=== PATIENT | female | born 1970 | race Caucasian/White ===

== ENCOUNTER 2023-10-22 21:04 | Outpatient (REF) | payer BC, SELFPAY ==
[2023-10-26 10:13] LABS: Age Gdln ACOG Testing Note (.); HPV Aptima Negative (Negative); IGP, Aptima HPV, rfx 16/18,45 Note (.)
== END 2023-10-22 21:05 | disposition home or self-care (01) ==
LOC: LAB 21:04
PROVIDERS: Visit Provider Physician Assistant
DX: Z01.419 Encounter for gynecological examination (general) (routine) without abnormal findings (principal)
CPT/HCPCS: 87624; G0145

== ENCOUNTER 2023-11-02 12:51 | Outpatient (OUT) | payer BC, SELFPAY ==
--- OUTSIDE RECORDS SUMMARY | 2023-11-02 12:54 | XMS_ITS | CCD ---
Author Name Unknown Address [address] [place] [address] Organization [facility] Care Team Providers Care Bar And Filler Assembler Name Role Phone Alice Solis Primary Care Provider UnavailRuddy Wilson Attending Provider Unavailable CALDERON, DR MATA Admitting Unavailable KARASIK, DR MATA Attending Unavailable SOLIS, DR JENKINS Primary Care Unavailable KARASIK, DR MATA Consulting Unavailable CALDERON, DR MATA Admitting Unavailable CALDERON, DR MATA Attending Unavailable SELENE MELENDEZ Primary Care Unavailable KARTRINAK, DR MATA Consulting Unavailable VENDOR, DR GALE Cm Consulting Unavailable KeJuanjo glaser Attending Unavailable Juanjo Mtz Admitting Unavailable Alice Solis Primary Care Unavailable Unavailable Unavailable Unavailable Allergies Allergy Classification Reported Allergen(s) Allergy Type Date of Onset Reaction(s) Facility (1 source) Iodine (And Iodine Containting Drugs) Drug allergy (disorder) 11-09-2014 [facility]ository Medications Current Medications Medication Drug Class(es) Dates Sig (Normalized) Sig (Original) aspirin 81 mg delayed release oral tablet (1 source) Platelet Aggregation Inhibitor, Nonsteroidal Anti-inflammatory Drug Start: 09-22-2019 take 81 mg by mouth once daily Aspirin Active 81 MG Oral Daily September 22, 2019 3:02pm cetirizine hydrochloride 10 mg oral tablet (1 source) Histamine-1 Receptor Antagonist Start: 09-22-2019 take 10 mg by mouth once daily Cetirizine Active 10 MG Oral Daily September 22, 2019 3:07pm ergocalciferol 94601 unt oral capsule (1 source) Provitamin D2 Compound Start: 09-22-2019 take 85622 [IU] by mouth every week Ergocalciferol (Vitamin D2) Active 65844 UNIT Oral every week September 22, 2019 3:02pm esomeprazole 20 mg delayed release oral capsule (1 source) Proton Pump Inhibitor Start: 09-22-2019 take 40 mg by mouth once daily Esomeprazole Magnesium Active 40 MG Oral Daily September 22, 2019 3:02pm fenofibrate 145 mg oral tablet (1 source) Peroxisome Proliferator Receptor alpha Agonist Start: 09-22-2019 take 145 mg by mouth once daily in the morning Fenofibrate Nanocrystallized Active 145 MG Oral Every morning September 22, 2019 3:02pm fluticasone propionate 0.05 mg/actuat metered dose nasal spray (1 source) Corticosteroid Start: 09-22-2019 Fluticasone Propionate Active 2 SPRAY Intranasal Daily September 22, 2019 3:17pm Multivitamin preparation (1 source) Start: 09-22-2019 take 1 tablet by mouth once daily in the morning Multivitamin Active 1 TAB Oral Every morning September 22, 2019 3:02pm Tiotropium Guy (1 source) Anticholinergic Start: 09-22-2019 take 1 puff(s) by inhalation once daily in the morning Tiotropium Guy Active 2 PUFF Inhalation Every morning September 22, 2019 3:02pm Problems Problem Classification Problem Date Documented Date Episodic/Chronic Immunizations and screening for infectious disease (1 source) Encounter for screening for human papillomavirus (HPV); Translations: [ENC SCREENING HUMAN PAPILLOMAVIRUS] Onset: 08-19-2022 Episodic Other screening for suspected conditions (not mental disorders or infectious disease) (8 sources) Encounter for screening mammogram for malignant neoplasm of breast; Translations: [Encounter for screening for malignant neoplasm of cervix] Onset: 08-18-2022 Episodic Residual codes; unclassified (1 source) Asymptomatic menopausal state; Translations: [ASYMPTOMATIC MENOPAUSAL STATE] Onset: 09-11-2022 Episodic Residual codes; unclassified (1 source) Family history of malignant neoplasm of digestive organs; Translations: [FAM HX MALIG NEOPLASM DIGESTIV ORGN] Onset: 09-11-2022 Episodic Residual codes; unclassified (1 source) Family history of malignant neoplasm of other organs or systems; Translations: [FAM HX MALIG NEOPLASM OTH ORGN/SYS] Onset: 09-11-2022 Episodic Results Test Name Value Interpretation Reference Range Facility COVID-19 / Flu A/B / RSV PCR on 04-19-2023 SARS-CoV-2 (COVID-19) RNA ELIZA+probe Ql (Unsp spec) COVID-19 Cepheid Result Negative for SARS-CoV-2 RNA by RT-PCR Flu A Cepheid Result Negative for Flu A RNA by RT-PCR Flu B Cepheid Result Negative for Flu B RNA by RT-PCR RSV Cepheid Result Negative for RSV RNA by RT-PCR COVID19 Blank Space Reference: Negative COVID19 Blank Space Cepheid Disclaimer The Cepheid Xpert Xpress CoV-2/Flu/RSV Plus has Cepheid Disclaimer not been FDA cleared or approved; this test has Cepheid Disclaimer been authorized by FDA under an EUA for use by Cepheid Disclaimer authorized laboratories; this test has been Cepheid Disclaimer authorized only for the simultaneous qualitative Cepheid Disclaimer detection and differentiation of nucleic acids from Cepheid Disclaimer SARS-CoV-2, influenza A, influenza B, and Cepheid Disclaimer respiratory syncytial virus (RSV), and not for any Cepheid Disclaimer other viruses or pathogens; and this test is only Cepheid Disclaimer authorized for the duration of the declaration that Cepheid Disclaimer circumstances exist justifying the authorization of Cepheid Disclaimer emergency use of in vitro diagnostic tests for Cepheid Disclaimer detection and/or diagnosis of COVID-19 under Cepheid Disclaimer Section 564(b)(1) of the Act, 21 U.S.C. 360bbb- Cepheid Disclaimer 3(b)(1), unless the authorization is terminated or Cepheid Disclaimer revoked sooner. PERFORMED BY: [facility] [place] [address] PATHOLOGIST PUBLIC HOUSING INTERVIEWER SUSANNA SIMS M.D. [facility] Comment on above: Performed By: #### C OVID19 FLU RSV, CEPHEID NEG, QS #### [facility] [address] [id number] [facility] Cepheid COVID PCR Negativeon 04-19-2023 SARS-CoV-2 (COVID-19) RNA ELIZA+probe Ql (Unsp spec) Negative Normal Negative [facility] Comment on above: Result Comment: This is a duplicate Cepheid Xpert Xpress CoV-2/Flu/RSV Plus RNA by RT-PCR result to be used for statistical tracking purpose only. PERFORMED BY: [place] [id number] PATHOLOGIST PUBLIC HOUSING INTERVIEWER SUSANNA SIMS M.D. Performed By: #### C OVID19 FLU RSV, CEPHEID NEG, QS #### [address] ECG 12 lead ECGon 04-19-2023 ECG 12 lead ECG [facility] [place] [address] [place] [address] Electrocardiograph Report Signed Patient: Margret Encinas MR#: [id number] : 1970 Acct:[id number] Age/Sex: 52 / F ADM Date: 04/19/23 Loc: ER Room: Type: [facility] ER Attending Dr: Ordering Provider: Juanjo Mtz DO Date of Service: 04/19/23 ECG/ECG 12 lead ECG: Chest Pain Copies to: Test Reason : Blood Pressure : 145/084 mmHG Vent. Rate : 081 BPM Atrial Rate : 081 BPM P-R Int : 176 ms QRS Dur : 086 ms QT Int : 406 ms P-R-T Axes : 043 -29 012 degrees QTc Int : 471 ms Normal sinus rhythm Confirmed by Juanjo MTZ DO ([id number]) on 04/19/2023 9:18:46 AM Referred By: Electronically Signed By:Juanjo MTZ DO Transcribed By: MUS Signed By Juanjo Mtz DO 0 04/19/23 0918 Normal [facility] [place] 04-19-2023 Monotest Negative Normal Negative [facility] Comment on above: Result Comment: PERF ORMED BY: [place] [id number] PATHOLOGIST PUBLIC HOUSING INTERVIEWER SUSANNA SIMS M.D. Performed By: #### M ONOTEST #### [facility] [address] [place], [place] [id number] [facility] Quick Strepon 04-19-2023 Quick Strep Streptococcus pyogen es Ag [Presence] in Throat by Rapid immunoassay Negative for Group A Strep Antigen Note 1 NOTE 2 Results are those of a screening test. NOTE 3 If clinically indicated please order a culture. NOTE 4 NOTE 5 Reference range = Negative PERFORMED BY: [place] [id number] PATHOLOGIST PUBLIC HOUSING INTERVIEWER SUSANNA SIMS M.D. [facility] Comment on above: Performed By: #### C OVID19 FLU RSV, CEPHEID NEG, QS #### [facility] [address] [place], [place] [id number] [facility] MG MAMM SCREEN 3D ANA CADon 09-07-2022 MG MAMM SCREEN 3D ANA CAD Patient: MARGRET ENCINAS Exam Date: 09/07/2022 : 1970 Gender:F Ordering : DR ADOLFO MANCERA . Admission #: [id number] Family : Order #: [id number] CLICK HERE TO VIEW EXAM RADIOLOGY REPORT PROCEDURE: MAMMOGRAM SCREENING 3D BILATERAL CAD COMPARISON: MG MAMM SCREEN ANA W CAD, 09/01/2020. MG MAMM SCREEN 3D ANA CAD, 09/02/2021. INDICATIONS: Screening mammography Calculator Name NCI Breast Cancer Risk Assessment Tool 5 Year Breast Cancer Risk 2.10% Lifetime Breast Cancer Risk 17.40% Personal Breast Cancer No Personal Ovarian Cancer No Treatments None Family Cancers Aunt-maternal with pancreatic cancer at age 62; Grandmother-maternal with pancreatic cancer at age 85; Uncle-maternal with pancreatic/liver cancer at age 65. LOCATION: [facility] BREAST COMPOSITION: Scattered areas fibroglandular density. FINDINGS: DIAGNOSTIC CATEGORY 2--BENIGN FINDING. NO CHANGE FROM COMPARISON. Scattered benign-appearing nodules are present. Scattered benign-appearing calcifications are present. Scattered benign-appearing lymph nodes are present. RIGHT BREAST: No significant suspicious finding. LEFT BREAST: No significant suspicious finding. Stable micro clip marker upper outer quadrant RECOMMENDATIONS: ROUTINE MAMMOGRAM AND CLINICAL EVALUATION IN 12 MONTHS. PLEASE NOTE: A NORMAL MAMMOGRAM DOES NOT EXCLUDE THE POSSIBILITY OF BREAST CANCER. A CLINICALLY SUSPICIOUS PALPABLE LUMP SHOULD BE BIOPSIED. Dictated by: Gale Brooks MD on 09/08/2022 at 07:10 Approved by: Gale Brooks MD on 09/08/2022 at 07:12 Normal [facility] PAP ACOG PANEL 2: 30 to 65on 08-24-2022 . . Normal [facility] Comment on above: Result Comment: Perf ormed at: WB Performed By: #### 4 [id number] #### [facility] [address] [place] [address] Dr. Acosta Fuller Age Gdln ACOG Testing 30-65 Normal [facility] Comment on above: Performed By: #### 4 [id number] #### [facility] [address] [place] [address] Dr. Acosta Fuller DIAGNOSIS: Comment Normal [facility] Comment on above: Result Comment: NEGA TIVE FOR INTRAEPITHELIAL LESION OR MALIGNANCY. Performed at: WB Performed By: #### 4 [id number] #### [facility] [address] [place] [address] Dr. Acosta Fuller HPV Aptima Negative Normal Negative [facility] Comment on above: Result Comment: This nucleic acid amplification test detects fourteen high-risk HPV types (16,18,31,33,35,39,45,51,52,56,58,59,66,68) without differentiation. Performed at: =G Performed By: #### 4 [id number] #### [facility] [address] [place] [address] Dr. Acosta Fuller Methodology: CTIM Normal [facility] Comment on above: Result Comment: The Thin Prep(R) Shellfish Bed Worker was unable to read this specimen. Therefore a manual review was performed. Performed at: WB Performed By: #### 4 [id number] #### [facility] [address] [address] [address] Acosta Fuller Note: Comment Normal [facility] Comment on above: Result Comment: The Pap smear is a screening test designed to aid in the detection of premalignant and malignant conditions of the uterine cervix. It is not a diagnostic procedure and should not be used as the sole means of detecting cervical cancer. Both false-positive and false-negative reports do occur. . Performed at: WB Performed By: #### 4 [id number] #### [facility] [address] [address] [address] Acosta Fuller Performed by: Comment Normal [facility] Comment on above: Result Comment: Akin Blackwell, Door Clamper (ASCP) Performed at: WB Performed By: #### 4 [id number] #### [facility] [address] [place] [address] Dr. Acosta Fuller Specimen adequacy: Comment Normal [facility] Comment on above: Result Comment: Sati sfactory for evaluation. No endocervical component is identified. Performed at: WB Performed By: #### 4 [id number] #### [facility] [address] [address] [address] Acosta Fuller MRI Upper Arm/Humerus w/o + w/ Righton 07-05-2022 MRI Upper Arm/Humerus w/o + w/ Right HISTORY: Mass of the right upper extremity. Lump for 6 months. TECHNIQUE: Routine MRI of the right upper arm/humerus, with and without contrast. Given 15 mL of intravenous ProHance. COMPARISON: Ultrasound 06/09/2022. RESULT: No suspicious mass or lesion. Normal-appearing subcutaneous fat at the area of marker at the site of lump. No suspicious enhancement after contrast. In correlation with the recent ultrasound, the lump either represents small benign unencapsulated lipoma or area of focal fat deposition. No evidence for fracture or suspicious marrow replacing process. Large [id number] imaging of the elbow grossly unremarkable. Muscle bulk and signal intensity within normal limits. Visualized tendons intact. No other significant abnormality. IMPRESSION: No suspicious mass or lesion at the area of concern. In correlation with the recent ultrasound, the lump either represents small benign unencapsulated lipoma or area of focal fat deposition. Report reported and signed by Castro Ellison on 07/06/2022 0849 Normal [facility] Certification And Selection Specialist US Upper Extremity, Non-Vasc ular, Righton 06-09-2022 US Upper Extremity, Non-Vascular, Right HISTORY: Soft tissue lump for 6 months COMPARISON: None available TECHNIQUE: Ultrasound evaluation was performed of the subcutaneous soft tissues of the right upper extremity in the area of patient concern. FINDINGS: Within the subcutaneous soft tissues there is an ovoid isoechoic to slightly hyperechoic lesion measuring approximately 0.9 x 1 x 0.4 cm and demonstrating no definitive internal blood flow or abnormal adjacent blood flow. IMPRESSION: Nonspecific 1 cm lesion within the subcutaneous soft tissues that may represent a lipoma. MRI of the upper extremity with contrast is recommended to further evaluate. Report reported and signed by Ervin Lagunas on 06/09/2022 1330 Normal [facility] - Toxicology Resultson 0 04-14-2022 Lab - Toxicology Results [id number] 0OTGTIFF Normal [facility] Drug Test Panel 10on 022 Drug Screen Complete Collected Normal [facility] Comment on above: Performed By: #### 2 [id number] #### [facility] (DEFAULT) [address] [place] [address] Coding Summary.on 10-04-2021 Coding Summary. [id number] Gh 0bWw+PGhlYWQ+WW2YWKIqB 40whTWdnC7PG9tVPR1JOMA CEDUEVO4GYE3ujPE6ELsmE 2VybiAv UiqkxNGoMF49VOi7ECE4nE ydRHjslJ6dxHRgG0t1GxTp LS79qF07AFmoVUPtZxC7Dy ZpbjsgbWFy P9ubOrXvwTAsQxe+PHRhYm xlIHdpZHRoPScxMDAlJyBz zAlnBS2hEn1gZUUqUHYzxM xhcHNlOiBj p5wqPWKpNRpfPJ4fxTofL5 DhdEV3VSMkd9b6Db58jJM+ GENqFXK0wDrnZHcrq208Ah Usw2fpTRY8 tMYtWDvaLKJ7J73qo8G1AS WtEFQjEGK2tZB7yK5vkRlq irgjP0XwyHSoVyJ7FXC9aK ZhsP8ooVjr qmafmQ7wKxi+O70MFP6BGQ MOLX1MNvi9J7CoJsckbEI+ UI83MZPrIX96wCZfqWOoi0 ztpRf3FkSj GWLbZKV5xEtoCDxbn7YaAW BcT71wyZCot0G9WTJdeCli lFWcEsVprTG6hJ6wAKmofp fyk2mkcyab Jfowa3iihn29cY67P25kDC dkFZNjXDU6LWRkMRUupInt bl6xvL1gWf0+HVsxn7fzc0 kkcCi6SyPh JSGrpmTxvFtuOIN7q5FrRn 47R4NdnYztd4ZxBuz9bz87 gZZiq9G0pYK5JMqmJLPprY 0nKPjdVcU6 NGHsEfIrwO05wOZoILwtOb 1giBiryYtlVD3uMDLvbvun SAEjyA7yLXOrpVPbkZwdKY 4wNTBpbjtm p193BaThRCM8JWQgbJBwQ5 GzkU4pFsLdMZOkANVvK1Hf nFXvVKjoQ454OZjjYvE6LA KdfsNsC9Wg CFHbdHloAwE3x8N0Jh9Dw2 RsunktPVY3VFqkCYHdRxQk LtPmZtV6M0FaTyq6XZCjeR msNW5dB1Sc LIEjfhjllgdsiEQ1IUBpZQ IzoG47jLFkOWwrHx8wk6I0 h376ZIXuZCRntG29Rj2dyE ogMTBwdCBU mF9arqedl3cacuslOjZoRF HiWJx6ZEi0TBSsfOqeAuUs KTW5PpG7HLQ4cSXzpF1uoI jucqmtrX0m Oyc+M58glD2kGLX6IOC9kw bsUNRzsgDzOU70LU88Z9Db PjwvdGFibGU+PGRpdiBzdH vqXB2tZiId h6exx4MzLSukD6RkMMHqQJ wuMwy0RAAoZRX9kDS8aK4a MSDtQNqmy9O7jWZ4K1Canj Aijk1wk4hj KCLqRTeqY93ewJDmu2H2AP SuhYB9XUMdqRdtOwYqkE06 Oyc+OOTlkRoks6YxJqxiv9 yin3uenMf7 QiUdQUVylpEgtTlcJVP2b5 MbJr29P09lXXtsOXXzFDOz LQPyQAEtfBncgh4jcN5zVz 8+PGNvbCB3 kXY2qX7vXVNjYcA0VFdbW1 58GtGimQRuRftmq4uqc6pz kEx3QaJrMVZynyEckPbvFV A4p4EqEx87 N69mKIwkBGRfXXTeHWFpUJ QvvKkhtb6bqU0dRi1+PC9j h7chlm65xH51mBV+PHRkIH Q0iZiyTCou YPDpfO3yEGkzJtH3ASDcFb IsgR96cFFxDZuhEu5ohFuk vCdzTK6aMQHiveqcv280Lv Elf1qiMWDh tWPeFOhwIWH2E38kl4B2UN DvMFNoCZO8uHC0gR2ezWsq bjogbGVmdDsgdmVydGljYW qxALwpC816 IHRvcDsnPlBhdGllbnQgTm DlZLs8L0TjUub1OBKcvFzd SJ1tdMPnYAlfOm5mvLilwN pjQT7gLSXq xwfhj070HxKyj7sySMFfhS CxEDpvSHD5P95ak1W6MCJd DEWiXXU2vFE9bA0xvLgmje ogbGVmdDsg qoTqqTvgUNqkXLiaD002EA RvcDsnPkJpcnRoIERhdGU6 OY97KR18vEOaw7S7eUP9E1 BhZGRpbmct cpuxzYC6LZDfGJZrwV71Wk 9sgPxsMt2yMLKpMAK9QUIy sZCfP3AtlQ8iTvMnMUJoAG BkI6JmsICr NBjnD413BOsrQwZ2RLDkfi OlX5YpSFNebBppYbA0f0W6 Ej0CW9Q5ST44GY56eUYcu4 D5bFC8Q5Bm QYOdhxercngpuKJ0TAAaLU TqpF36Sq9etJooMq0mCHFa MCP9GNOciIXpA7OueL4eSy AjMDAwMDAw A0CbiGZkMTgpN447YEwpJl G1PQPgjtGqK1WsDJHzaQmu VcG3e7V8Ym5IPDp0KJ14BF 55dXUvb4P8 qGZ9R0NmKMBlwerjxnndoN T1TONgJRQhoR53Ik0lrVif Ky2mYCJpTCV6KTDtfGVaZ3 MgbE3lKuWo BJGnFWDkG1BayNTzGAwfB1 09ZInyLzM9GNUimiKaD9Xy NHXasFklHrY6l4Q4Ci7LCX MqMI02JVX5 jWL7BF69QH33L2TsQvpolO FibGU+PHRhYmxlIHdpZHRo JBaiGGZqWzAlvOpdOW0lMn 9yZGVyLWNv rShggBMqKnUhu6fdEPWkKF xzAR3zfPklR4UsfOM7GACz g3i9Uh10W13oU9WgjAG+PG OwqBJ7mID3 eK2iNwThAvA7SJngR664Ja FvtPNuRmhlr6izg1xeaNz4 KcW2ZBFgvaJbuYwvLPN5x5 BdZk43V30s IHdpZHRoPSIxNSUiIHZhbG iehv0fyI0yTs0+PGNvbCB3 sTD3gT9wGzGvImG5INfeF0 49InRvcCIv Lpfpr7fgj3yteCb8TyCeTX IntzJbqGjkQLM0s9UcWq48 X0JppSzaz0KwCiw5jx21hF Soq2Q6vXN8 O5RbMUDaqaxpvVYnmSabWP 5dPSDbhunhKCHerO6lEHMz L2i6ZvIhGtM7WBakD1Bguw F2NRSmmEGl PWlsRRB5B52mv3I4NBSkQO WnYHM2cIR8kW4yaQdzixkc bGVmdDsgdmVydGljYWwtYW ldI697ICPe xAnrEHZkaF1dIBWupIIvtE shJY9yMNCtbprlLoGBQ6hE UOhhQFJHHQUDIVhKKF14DD 27xMOlm4S6 zOJ5G9ZeQJUxlhhnnnkomL X1YYKlUYNzkL83fHOxRByt Vx7ga8P5q809GAAoOFAqpH 22Sa1fwXma TFKlfWYMcI4oaltzq8mtcn dcWlJwXOWqXOy5MYi8IVGa yLbdFeEvKWZ9JtB9XMU5gW SfcH0qgLdd djduhQ7mZpk+MDgvMjEvMT s3UOmyeAN+FUOcBCN1lJkn LVvuEMRuwK9aETKhS2p8Pg JhDzV0KKyy V1ZjFEIksvwiXi95fA6kUj CgTpF5UZeaS3IejwT4YAGx sQKwCJvlCFB8E88sn7W2FU MwMDAwMDA7 gOI6eU6yrKhbyyykjUAzvW pkaxQsrUpgGVkeOBxdK609 IHRvcDsnPjUwIFllYXJzPC 66ES06zOUs j4I6zZW6I3VuIOWbrlrgqy bnsOR9UFVqEIPmxC33iVCt MTjgCz4yn8W9e761FUXcYI DupK13In7t tTiuZCJqiKDCqE8rxlify1 xngawkElOeVPXzDLq8DUq4 CZTeoQnlKgKjUPV5EfX2KJ L9rMFoaS7l bUcyoinkuA8rKxu+RmVtYW zrTW43PN04lGSra5Y4pYR2 N0YwBUUzmvfuclvimUS2EJ QsVWCmiT44 pTJaOMbeVi4hi1Q1b912AO LzSPHqcP62Cp1bmLhnGMEz cLJEcA7hnajlz8fqolapRw AwMDAwMDt0 OQv7LCGhoSztAtLwWSK5Ey Z1QPN1yYBitF2fcOgkokut mZ3oUgc+Z6Q6jXI3oOFjxI wvdGQ+PC90 tl61Y4AbLtscHua0TYZkZL G5wWF4yI8hDLEyTWxao1D7 jEM0Q5CuwtUuhe1au7reGH JqUVvtP49v fHJkp8Y2XSYxeDF5XBFtsY xwObJhlU24Lko+PGNvbGdy c6IsNejpa9wye5vtlFf8Ui MwJSIgdmFs aEisZTP8f4IyDw99N99uFX dpZHRoPSIzMCUiIHZhbGln hv7paE7lHy4+AFExhIS2bN L2jT4eEjVe AcB4HRkiB572EqSasNVgFn kgg3rvv7cjlRv4NcRtAYZa ybDcqPchIVG7u7FyZn25L1 NetPjno1Qa Pvz8hy26pHTxm5H0tDB6L0 HhHMYymdathKCkyVwuLZ6m WIUfhsdbMDEqbS3rQTPqE6 g4CqBtNbI8 ABlxR7YpvtE5GOYknPJjUB MfnGLKpM4vngszt4mdrmzl JyEhNKZiJZq3CCk4IHSbbL duOiBsZWZ0 ZwV0ZFD0gJZtpL1kcSjhfv pxlK6lFxi+EGk9r5nimSOt CL6qjEB7FX24LZ83iGYir4 S7hPJ0M1Ii QTGyfvjanqlcdQQ5RGYoQQ SbaL88Se8ilBjqAa1cMMMl BRL6NZPnfKPsE0RnlS7mIz AjMDAwMDAw E7JeiGBfGJapZ629FYoaDn S3ECTgmyDtG5YdWDFfiEau HhG4o3L3Xo4ROG52GW72AN 21fHMlf7J6 dVU9Z8UfEGYwculehlxfcB N7YKHpZWIyjA16Jy1orLzw Tz8aCSDjBJA8VUOxfGIiR1 ZpqZ6dWuQl KAStIEWoY9JopCGnISfrF9 55AYcuUkV0PAWkezPfI6Vv FFUsiUagPqS6x0J3Ld1TEy 61AC91BY87 hDNrg1S7hCD9Z7VkPSGlgm aunyuayVU2AGUbPESpfX04 Aj7uuBjuUa9iUIDfHIV0RS TljYAxM4Ro dM2iWiGhLNFqNDIpH9EzzY JpNGctZ381GJgmGjO4MYYs anZyX4SgADPwqIfwOfA9l6 T9Gu0HSMwq xbr6K2RrEmmuvYU+PC90YW GlXG40hMVczWSuu9iaeAb7 UqSiPHIkWXY2xWtbHHaxp6 KgSETkW82x bGFw (more content not included)... Normal [facility] BMPon 09-08-2021 Anion gap [Moles/Vol] 12 mmol/L Normal -16 [facility] Comment on above: Performed By: #### 2 [id number], [id number], [id number] ####[facility] [address] [place] [address] Calcium [Mass/Vol] 9.0 mg/dL Normal 8.9-11.1 [facility] Comment on above: Performed By: #### 2 [id number], [id number], [id number] ####[facility] [address] [place] [address] Chloride [Moles/Vol] 101 mmol/L Normal 101-111 [facility] Comment on above: Performed By: #### 2 [id number], [id number], [id number] ####[facility] [address] [place] [address] CO2 [Moles/Vol] 23 mmol/L Normal 21-31 [facility] Comment on above: Performed By: #### 2 [id number], [id number], [id number] ####[facility] [address] [place] [address] Creatinine [Mass/Vol] 0.7 mg/dL Normal 0.5-1.3 [facility] Comment on above: Performed By: #### 2 [id number], [id number], [id number] ####[facility] [address] [place] [address] Glucose [Mass/Vol] 109 mg/dL Normal 55-199 [facility] Comment on above: Result Comment: If t his glucose result represents a fasting glucose, interpretation should refer to the following reference range: 55-99 mg/dL Performed By: #### 2 [id number], [id number], [id number] ####[facility] [address] [place] [address] Potassium [Moles/Vol] 4.3 mmol/L Normal 3.5-5.3 [facility] Comment on above: Performed By: #### 2 [id number], [id number], [id number] ####[facility] [address] [place] [address] Sodium [Moles/Vol] 132 mmol/L Low 135-145 [facility] Comment on above: Performed By: #### 2 [id number], [id number], [id number] ####[facility] [address] [place] [address] Urea nitrogen [Mass/Vol] 13 mg/dL Normal 5-21 [facility] Comment on above: Performed By: #### 2 [id number], [id number], [id number] ####[facility] [address] [place] [address] Urea nitrogen/Creatinine [Mass ratio] 19 No Units Normal 10-20 [facility] Comment on above: Performed By: #### 2 [id number], [id number], [id number] ####[facility] [address] [place] [address] CBC w/Indiceson 09-08-2021 Erythrocyte distribution width (RBC) [Ratio] 12.7 % Normal 10.9-14.2 [facility] Comment on above: Performed By: #### 2 [id number], [id number], [id number] #### [facility] [address] [place] [address] Hematocrit (Bld) [Volume fraction] 40.3 % Normal 34.0-46.0 [facility] Comment on above: Performed By: #### 2 [id number], [id number], [id number] #### [facility] [address] [place] [address] Hemoglobin (Bld) [Mass/Vol] 13.9 g/dL Normal 12.0-16.0 [facility] Comment on above: Performed By: #### 2 [id number], [id number], [id number] #### [facility] [address] [place] [address] MCH (RBC) [Entitic mass] 32.3 pg Normal 27.0-34.0 [facility] Comment on above: Performed By: #### 2 [id number], [id number], [id number] #### [facility] [address] [place] [address] MCHC (RBC) [Mass/Vol] 34.5 g/dL Normal 31.4-36.0 [facility] Comment on above: Performed By: #### 2 [id number], [id number], [id number] #### [facility] [address] [place] [address] MCV (RBC) [Entitic vol] 93.4 fL Normal 80.0-100.0 [facility] Comment on above: Performed By: #### 2 798389, [id number], [id number] #### [facility] [address] [place] [address] Platelet mean volume (Bld) [Entitic vol] 7.6 fL Normal 6.4-10.8 [facility] Comment on above: Performed By: #### 2 033918, [id number], [id number] #### [facility] [address] [place] [address] Platelets (Bld) [#/Vol] 401.0 E9/L Normal 150.0-500.0 [facility] Comment on above: Performed By: #### 2 810396, [id number], [id number] #### [facility] [address] [place] [address] RBC (Bld) [#/Vol] 4.3 E12/L Normal 4.3-5.9 [facility] Comment on above: Performed By: #### 2 049103, [id number], [id number] #### [facility] [facility] [address] [place] [address] WBC corrected for nucl RBC Auto (Bld) [#/Vol] 7.4 E9/L Normal 4.0-11.0 [facility] Comment on above: Performed By: #### 2 [id number], [id number] #### [facility] [address] [place] [address] Consent for Treatmenton Consent for Treatment [id number]#1.0 0CD:127 Normal [facility] Physician Orderon 09-08-2021 Physician Order [id number]#1. 00CD:127 Normal [facility] eGFRon 09-08-2021 GFR/1.73 sq M.predicted among blacks MDRD (S/P/Bld) [Vol rate/Area] mL/min/{1.73_m2} Normal >=59 [facility] Comment on above: Order Comment: Order added by Discern Expert. Result Comment: eGFR is race adjusted. AA=. Performed By: #### 2 [id number], [id number] ####[facility] [address] [place] [address] GFR/1.73 sq M.predicted among non-blacks MDRD (S/P/Bld) [Vol rate/Area] mL/min/{1.73_m2} Normal >=59 [facility] Comment on above: Order Comment: Order added by Discern Expert. Result Comment: Repairer S[employer] Door mahad kidney disease could be indicated at eGFR's of less than 60 mL/min/1.73m2. Kidney failure is indicated at less than 15 mL/min/1.73m2. Performed By: #### 2 [id number], [id number], [id number] ####[facility] [address] [place] [address] Stress EKG Tracingson 2020 Stress EKG Tracings [id number]#1. 00CD:127 Normal [facility] NM Myocardial Spect Rest/Str ess 1 Dayon 07-16-2021 NM Myocardial Spect Rest/Stress 1 Day Exam Date/Time: 07/12/2021 14:58 EDT Reason for Exam: ABNORMAL EKG Report PROCEDURE: Lexiscan nuclear stress test. INDICATIONS: Abnormal EKG. PROCEDURE DETAILS: The patient was stressed according to Lexiscan protocol without event. The patient received 10.5 mCi of Cardiolite for rest images and 29.2 mCi of Cardiolite for stress images. Baseline EKG was sinus rhythm with poor R wave progression and left axis deviation. During Lexiscan infusion, there were no significant EKG changes. Review of raw images demonstrated some mild motion and attenuation due to large body habitus. FINDINGS: Uptake of the tracer was homogeneous with no identifiable ischemia or infarction. TID ratio was 0.94 and EF was 68% with end-diastolic volume of 90 mL. CONCLUSIONS: Negative Lexiscan nuclear stress test. Overall low risk stress. FINAL REPORT Signed (Electronic Signature): 07/16/2021 10:12 am Signed by: Morgan HUMPHREY, Dony Carmona Transcribed by: susan Technologist: HELENA Technical Comments Rest Dose (mCi Tc99m Cardiolite): 10.5 Stress Dose (mCi Tc99M Cardiolite): 29.2 Normal [facility] Coding Summary.on 07-15-2021 Coding Summary. CD:[id number] Gh 0bWw+PGhlYWQ+TU2DJZMrJ 51jaZFshI3PG2lFJK0GEJV TYPVRDO7IPR9rgLD0QKddF 2VybiAv KitesAAnPB96SWk8ARV5oL rgPKynuG4bbAPpJ3i4OhTh YS08pV16YNegETOgDhP4Ou ZpbjsgbWFy V4sjQtZdkSIaXti+PHRhYm xlIHdpZHRoPScxMDAlJyBz yHuqOZ8dWg0gDUBuBQDlrL xhcHNlOiBj h0vjJRYjSByfCC9zxIwmK7 YpnOZ6ZPUfs0m4Qh30vBT+ QGXuCDC8bFrrFJfoy797Az Nnl2njEDN5 vAGbKShyNTI0Z01vj6V4KZ ZrYOFgXPH3jOR7cJ7blXvw ztogU2TbgBIaTpU7HYD4iL LifT6aaNdx gnibnF8nEbu+I04HIJ1CLH QOOC0XPdv2M1SqQkvkjML+ HL42QCTqDD28zIKvaLOjo3 qazUk1WbSd JQEhUJI8dGdtXNvkf1IuTD JmD39knPGmm0I8HMNvsKjn cRPaOyKsvTY0uJ5tEPfmod ayw8yxkege Vvjkz9enra96zW11U76vBL ggTJUvLHA0ESItUGBwzXvc vg3yqC8fCg0+USwsx8roj3 yonHc9OrCl XFKpisZszAubTET2f3PwNx 17N4ZveUxid2BdDda9gc33 iUTao2N7aDP3JEeuOVBcbY 7iHKphZjN0 FNPkQrWbbZ84jDFrRQhcQo 1qvVldrXrgSL9gPUSwgqtt HZIdhI9bEDPgjYWgvZpeEA 4wNTBpbjtm e282ArWaONR7GQVnhYTtB1 ChfD6fLdAgOTUmQUXaV8Gy mTKuSPhkC566KRwmWeI9VX TbmiLyY5Ri AVNfoYpbWbK4i4P7Yw2Mn1 QzbacgEPX8MYxgAFM9HaVi MaLpGhH2I9SoWda0TXYmnC wmMH7pT4Sw LMFexboieualyLJ5MTWiOC LenW99jYTbKEhmSr5gw4D6 i527LBHvILGwoG40Ls8chB ogMTBwdCBU aV1prbhor8gagzjlPxXxKE YkKWi0WKs1XCWolAefUhYq VKH8JuF1HPD5fKUpnX9njD hvphufsW7b Oyc+W30cdD6nNCX8TCY8zp omWUQvmgQsCL09DG66Y4Jl PjwvdGFibGU+PGRpdiBzdH deAB2yVaCq o5itd3BcGYyzG0ExGPLlMC lnOra9EAHcBMH0oGT1fE3w DODyUItkr4Y2rRB0Y9Pfqv Xkka1es9hh QRPoQYdgF90ubXKzc8E4KM XqfNL5IHEcxHdiJqYxvK38 Oyc+TMGbdHscz2XqPbgqi8 zjd2hjyNh9 ZkAiTDVcszAryNsmPIC6r5 SsOl90E35hARbpJTYeYXVn JKLcQABlpKhnzl1puV3vAw 8+PGNvbCB3 yKR7lV8oHYLlHaG9VWccH9 12WlMeaHQzTbskg0mgg0az bWa6XxOaTMPtyzQmyBnvPU M1c3EvHi43 B90qFTlhQLRcAFXyCAMjPE IfqYlauo7uoR0fPd2+PC9j x7maek85eT59eQB+PHRkIH A8oBjjJReb OFOrlI4vOQoiJhR9COCpLr XzkT67gEEkBAelRz1boNph cMdcFU5gMYSsmngkw969Ke Krm7zxBZCz sAWpZHfiTJA0V33au6T6TP LuEEOyOLA8wCT1pA6xfPjt bjogbGVmdDsgdmVydGljYW gqAWbiK191 IHRvcDsnPlBhdGllbnQgTm ZoTPv5X7SxAmq8IVNnyZpe HY0qbBLuHOteRv1yzUlapW xwEG8iNXTx pjrzi345XiPni8opZJCqvN XmFVvqYDO4K51xe1Q3GNRi DCVuMPX9xHN6wV5qeMziaq ogbGVmdDsg doAtqGoqXQbsUGgdE310UK RvcDsnPkJpcnRoIERhdGU6 KZ44ZZ02zCOkg3C2eFW3V7 BhZGRpbmct zlyzfOM3VHCsYXGweN58Ec 9oiAhkNr1hLNTgJKW3AHJk rEOqX6HasH8hAqUdPWBeKW KsP0IjiLCl PXamH266LTykEgK1ACYxdf IjT3WpKFBnvUzcGkZ5i4V3 Si6QL5D8BH13NE36gLRwh4 A3kBV7Q6Fq ETBknwmnvechwVO3VUYlCG AazV12Mu4ogTosPl3rMEYm VAV7LUFzuTVrE1YsgX6oJr AjMDAwMDAw D8XcgPCrXSwyD342RFzdLv T2MSYlgdFcM0MuXRAjcIno YyV3m2F3Ch7CSKi1MX20NK 68bQBtw6B6 sJE6K6MgRNOffmwqcvozsH J4WROyHZDweF38Ii0gbGhn Rd0oWMGpPXR5SZOghRIaU6 AigT1lQjOy ZASlXJEsV0KruVDnORiwL6 13QEjtDqE6ZENubhDyE2Kk ZDVjcNfnCnP5p8J1Mo5YBR UmJL82WPR8 bZU1SE28LF99D6FcQuaczY FibGU+PHRhYmxlIHdpZHRo ICofSXKlPiPntWfpMD8iZu 9yZGVyLWNv xTnlxEBsEbIwl9mcLRKiQN soPS4svCodA1HrrXA2DFOp a6r5Cq72H96sX2MilAB+PG LeeZR1vPK5 rG5zTlGkXuG1XNqoH652Nh ZroXBsDrptr8pmu9nizYe4 LxA4UBObxaXmuNoeACV5x3 AyZo69Z56w IHdpZHRoPSIxNSUiIHZhbG vtep5lyD2yCz2+PGNvbCB3 gYK2jR9oDeKtXkO7YSdxX8 49InRvcCIv Yfejp7vvk1njvUn1ZxMvBE VsggEepUzyOGO9v9FbXm00 Q5WplFoqj5NhLxe9sb02bO Tpc7W0pEL9 K7YxFIMbwhqswLMujWpgSG 0tFPHdwwfzCLQlnV6jIKEj P2h0HiWeFaY9XOqaQ6Vjje K4MVXuvQQh KIpjPDS6Y10sb2E2XVVaVR ZoCQU5bBG2cN1cgSdomule bGVmdDsgdmVydGljYWwtYW npB417UYDn rHbiDSLjhX0vAQJhtVIyrS pmDI1gJNSfycgnTpMQB1fU OZqjQFBLLNBOFUlIYA24IE 41oQUrf5B6 cKS9H9UxABXsvrfbvumxsD E5PKGeFGGrwA45qGPuSHla Pf3la2H0a831QZZsRPSufY 43Ud8oeSnf TOXubAPNiG4apcumg0xpeg syCuUcAFUxMSh7UJh9MBGn kAmvNzFkSKP5QqL2TQE8gA RzeB0vgBjr vuxvxP4yGep+MDgvMjEvMT g7XSbsnUI+JMPwKQG9xNty MZdnGNEhoU6vLXSnV2z3Wp UhFmL6JJjd B0OvFMYwvcjyPv82cG3eUo YdMeY9WMcsS6ReniI6PVAw eZZeVAbnUSW0J66nm8V0KM MwMDAwMDA7 vMG9sD2pwUuvjtjdkTBsiH kghgMqnMxwPHxrSBcsL866 IHRvcDsnPjUwIFllYXJzPC 54RY59rLHv h9P4wMN3B6CgCCJiiufwti zhyDS6VVHxRJYicK76dWQp DMreBo9xx1F9m099VZUtWD LxbB52Ew7j uScjSZZgeHRGsP6bqpsfx3 ogsnarFvAgJKKgBVh5PWk8 ZVIecBnzUtVtDLU7ZmX2FJ E3wVUfvE1h zJronvbmzZ1sZgd+RmVtYW ltYY30KF49yNGra9X4zOO1 P1AbHXNsorwazdmkyEV7PB GmTDLlwH20 vXZnOHzcNg6dp9A8v187FK IqDOKhcM69Rh5ynZoiXJJc lKLCpN3uwqdco0zshyvmKr AwMDAwMDt0 XOt7YQUoeIulQdNlXRA4Ff N3OEO4sBJlyJ7kgMrmzjzm nI8yVni+G1P8nTI1hQDglZ wvdGQ+PC90 wn33F5LzHyglEfv5WMXqOL O1xDE7oV4bNHJrVWulp4T5 eIN0O6XcoePaih8fx9hwGB AbNNjwL79e vYVkt8C0TYQywTK0LBAyqN etWyIwzH49Osu+PGNvbGdy o5CwMbnvx3ibf9zkwJu2Gz MwJSIgdmFs uOaaJZL1d9BtDy86Z78nAQ dpZHRoPSIzMCUiIHZhbGln do4vwC7tJj8+VOSskGD2rX S8xG5lYeDh CpL0XZjyY151NeKexTLeNn oxw4rgr3ehwNn9ZiVxEUPw jqJizJewJLU2n9HeUn10J7 KvnWjeq4Oj Zwr6vh96oQJvf2B9iJB5Y4 PcUPQjvgtkkRHihRsvXU1a FTPflrcpNOAvgZ5hGXVeU0 p1UsBcEsA5 LKpkS2LhvlE0ZQBqqVFmRX AilZNDwK3qcmigl3haghci KuCpPZLsIIt1TNe4WJNdoD duOiBsZWZ0 PiS3HWP7pVNggU0ywJahup iilP7bUrl+UHd6s6yxmBIi QW1xdUZ1TE57JE54vTEhf0 W3fCD0Y2Og ASDavkhjwzogxFL3NDOgJR ZhcL91Vn2wqXabEf3pZOIb YXH8INCtoPRyK2OmbX6tVv AjMDAwMDAw Z8DmyDYaKKscR844TRgpDs M4ZUZugiUcY2FvOHAyaGua VdE2z0F6Uv2LLF76SH54MJ 15jDTkj5Q2 hAR2J2YqIMMsrpqtzgzqyN N5CBJnPFEyjH92As4kjDov Ew3rPSEtAXL8RKEajBVkD1 AbdG5xHqUp TSFwZNKiO1TpyARpBFtaV1 73RUlpTxH3YONrntDmL6Fw NQTdcEvzEgC3r4M2Kh6WSo 16ZE66AB69 uMTnf6R6cLR9I3QgHPQqip xcamtwgQL9FHUeCOUyqT49 Zs0whYrpUw7nZAEgFZH6CW FtxIRkX4Rh rK5cPxLpZJOmXSFhO7RohO WzDLqvV525FAnjUjU3FNLb arLnP7BaPSXdyLddPwX2r1 I8Ao4VZNyz jrw5F0VoCtvrxLC+PC90YW UxAS60rFBlkBMqk6ahpMj7 GiXjVXVcCJM5aDebPRdce9 XvOIEjV85o bGFw (more content not included)... [facility] Consent for Treatmenton Consent for Treatment [id number]#1.0 0CD:127 [facility] Physician Orderon 07-01-2021 Physician Order [id number]#1.0 0CD:127 [facility] Coding Summary.on 06-27-2021 Coding Summary. CD:[id number] Gh 0bWw+PGhlYWQ+ZA4QQYHjC 67diYKcvA8MM5xXMO1FRLP UDBUJJU0EYI7ddTV2EConC 2VybiAv UslnzWDpOX60EKt7XCH0zM tyLQwsqU1weLPnM8p4GsWj FT29dA05NWodPDWpYgG8Ra ZpbjsgbWFy V8bsCqFrrCPhTpw+PHRhYm xlIHdpZHRoPScxMDAlJyBz qLexLR4jJr3aSUDlYFBbmK xhcHNlOiBj d0jcCQMdNBcvRZ1juZwlG0 UxrQG2HNPdg4i8Jf70kVM+ FQWhCNB2cLdjGHkqj343Sa Wea8odDSM1 fBJzIFnaVXN6T00yi6X7OG BvLEIbUGS6rAY0rC0nyBmo agfdG7MzxLCrUgU3GOR7aY NyjV8plGwz onazqJ2eClc+J21JZP0EGD EPGH5SKqj3B1QoPukmlOE+ HO02ERUhVP99kPYlkQKms7 njmLy9VeVu EDZoNBT1fKyoXCbmm5YhNM LnB07mmFSmm2C0ENWosWsj mWCgYdIgbQW2kC7uTPivtf zgq8evzdky Tfcuj0fdng61dL35A91bMN qrQBZiYNS0XLLbUSDbnKgs wj4eoI5eCw7+GDtad2ivs2 yigZq1KnTd ZMUaddOfnHvwETI7g6YpWq 98V6IkeOvyb2WzZoq6tn92 zGRkn5L4qHE2JEjlDTWhpB 2wEQmbWsJ5 KDBvBtPjcW61jZBlPZnvEv 1mnZatkKyvUN2qMXCwdlcg CFKdfL1wGKCrzGDcoNixYG 4wNTBpbjtm r935QiPjJIM3PBMddCGfO4 OlcZ8mAaCzUZCoEQUwL4En sSIlTXcvA943RGenGiU5OK UstjNfH1Io FTZukElsRyU6n0W1Ii1Ai3 JkuwtxPJH4PPjnODB6JbGa ChCqVoC0B6QjIez8BROpfS fbVA4cG2Ts TDCfhjjpggnpnZY6JKQtMI McdK60rOSvIEqwWz7on7E1 g420YDZdEHWdcV31Mm3yhN ogMTBwdCBU wF4qndixh7foaahiXeTbZS IhPGk1NLq4VFNksDbpHwPq ZYA5PcO8QGJ4iWXjyM8tjV kjliiwpU2e Oyc+A27fhG3bROA1MUF0dl ywTPUaqfLoNL04GA20D8Ig PjwvdGFibGU+PGRpdiBzdH xkWB0lSgFf b4wuw9XeLDtgG2LiFPUhZV orFzw9SARyPZC0mGG4nF6m KJHmLCcob3Z9mSV0L5Hybd Vnlh1ey3nk FVAkDHokO36qaQNac8K8UV KfiRR6VSUlrYheXhJjiO07 Oyc+JIPnqSfsx6CwDzfdj3 dxq3vanMp9 IlTtFNWjtnNzjEjvTDN6e5 HrLp12M47pJOoaMVGiJUOh BPZgVFRljAdscx0wsZ3hXm 8+PGNvbCB3 pIF4zA8yOCOnAxC2QFszX9 94JdRxzSOcIycbf7tmf6hm nAh9QcFnAVCbbmQacHjmFU M4x9WmJu59 L72zWCipVJPhTHVpNXMbKE ColIsbaw3zxX2nPx8+PC9j n6mtod49jF87nTM+PHRkIH G5jXbtKFnc VYXyyH5yPXlbKvU3XYFvDe VzuB17xAIjSFstZi8obFnp pMmtKW2bGKYvdsbqz566Ad Dru8olQLHc xZZiVYjeIZD1Z85aj0T7SO TfFIDlCSD8cOE9hX5gnSjv bjogbGVmdDsgdmVydGljYW nzNSptU762 IHRvcDsnPlBhdGllbnQgTm MuLNb7E4WjBrk6VGGxpTof LI1msUSlWMilTf2xbSuyfO wyDJ0nEAEu wicqw069LbIyw6auUCEzxS QyXGfuANI1B97sv4U4PWRk CCJkLPT8vWE0jC2fpFenii ogbGVmdDsg wqJsdTiiANhfYOrnJ492NN RvcDsnPkJpcnRoIERhdGU6 RG42VS63lYPoo1J8qLF5G4 BhZGRpbmct xgjknRC7CNGxTRSamJ83Vg 5yeNreXk3sRZEuICJ9JRJd vEFlS2OjvK0iQvQkQBPpQA YzW1MqmHGb TLraB324ANmfXvC9QQEsri FeY2OoJLVmfEbiCiV4p8U4 Vq6HB8Z3DH15VJ84eBKyd9 C3uYO9V0Fo FJPakxurveykaJF1KXDxJW MopQ63Bt7dlKbwZy5vUWOt AGB3MBKioNVgE7TecA8cBz AjMDAwMDAw F8JvkZDsCRztX280FSfmYl T3XFMvcvFnC0EmWMXxnXxe PrN1o3W7Qb5NBUl6UB81XT 94tGJno2A1 aYA7M8DtQFGhhulttpgpqJ H3YEYjLHUdgT08Qf0jaRkj Th4dRSHjIMN7CWFcbNMcM6 DotI7bWtLv OZXzEDTuT0QpnAWwHXcrI0 83OWopJkD4JHJezhPvC1Jf YMVuqXhzNxT9d0B6Lv6QRD AnBN76EYT4 pUO7DM34LI07V3SxZzkssY FibGU+PHRhYmxlIHdpZHRo PFmvQLBpTbIeqHqqAS2bVa 9yZGVyLWNv lBknnXIsAoNmr0mxOIKmAX avJG5nlCudU5RhnJW4ZLZy w2t1Ef11G92zU3DglOC+PG CmjUK4iLP6 lD6iAxIbPdO3BTqiS537Sf UysTLvOdmhz6enj7xlzLd4 BiX6YGVozqHsbIfrNEG9i2 WmQw04W36b IHdpZHRoPSIxNSUiIHZhbG lzdf5blT8wKo8+PGNvbCB3 cPU5mX4mCuXkQiQ5HNlaT9 49InRvcCIv Hunrg4vqx4kjfWh6AtQvMP AiowBewYzzXEA0x5HnPo50 W1QdmMcnp5YtSii3jq20hF Uqk9U8gCT4 R3HdHAOtmxdptHHifIjnRH 6yMAJqqhdxSOCtwR1mWBTi D1f8QwMdGlP8CDhaC2Wlkn T1ULFnwZFe PYegQCQ0U34yq9G6UWYbEX ZxQXZ7yII0zZ3pcCffkubf bGVmdDsgdmVydGljYWwtYW roQ681CEEs nXvgJOWnkM9pHTHasNDwpK lwUA7xZVYwigmlApHKO8nE EBxnXUSXXYZZIRoSRS27JC 98nZSlt9V2 eMT4T3YbVGUkixcnjzwiuB K9PYUtLHFbqA21zQXsLNuh Qc8fv2P5k919RPAbOCEsjO 68Up3cvRnj VTUflHERmZ7ezwcni6qyfj ttWqDxCOOpLZs3YSp5UCWb gPhmUlEqBYZ5IeK2XRJ5kX LydK8lpKpu tlssaO6uPjr+MDgvMjEvMT c1QZmpgFA+EBAbKIG4xFty DEakOBGxlP7sANTcH2c7Ks RpFjX3YGpo U9InZMGiatnaPc67sO9uUl PrHgQ4SRliQ4BqrwW0MWIr gXCiHYemDKD8V15er5K3UE MwMDAwMDA7 mLS6oP2utAuvhdqanHYfvU rzezDwmKzkIIjfKUpyQ517 IHRvcDsnPjUwIFllYXJzPC 05MM15bPBa n2X7iUO6L4QhYSSemkbqam bmgUE3SLDmRDBmvM35xXBs SPkxPj2vl0V3a300RPNkWA OjbM80Kx7t oKllLWKjwGUHbG3ndtlhm3 uqhlgkOmLwSGNvMSt1EEv1 IMHvpPrpDvKhYBV3ImU0XJ M6kRNqbB1z uAwhhriubU3vVax+RmVtYW rdUZ82RR76pNQvm6Y8tRC9 B7JgXGStkswivtejyIE2KP LiPOGcuY52 gITwMJzyZp1hk2R2v927IX TsVRRbkO69Yw5trXnmXVXa qKWLoN9rrwner0kskkiwHi AwMDAwMDt0 PXi1BGJtmGodFsVmVYF8Tt P9FGN4pGXenS1xwCzcfmwh xL3aGxa+X4A7tTH9pVVlmQ wvdGQ+PC90 fa00Y4SnRwiqHrc1XOZwDQ U7hOQ9eM7kILUoROpyq6I8 hDK2Z3EehxXdyr0jl7qsBZ OmJUzhT88k bXIsc5U3HIPbfHY6MHJcyG ckWiSmfM20Eas+PGNvbGdy d1McFmajk2wzn4fctLs4Hq MwJSIgdmFs bEjhOMD5g3VsHn43R73pVV dpZHRoPSIzMCUiIHZhbGln ic6owC7mWt7+ATOdlBP7aL T9kE2kCfNm KyL5VRqqH911KcShkCSqNm xty3nqd5acxBz7FwChOJWm ueSktGveJFL1e8CjVu11B8 ZepXqwv2Oc Ebt8xo41gWXvx6A6yEP7N0 XlGGGnbcdlnPXkqBpxDQ3d AZVvesnhRRNaaY3fBBUgK9 p5GnHcWfK6 LXprN6DjlwP6YBFrcPShFW TriYVReM6xcubio6uijyfv RkGjSLUiMZv3ZXi4EFQoxW duOiBsZWZ0 NxX0UNV2bCIcwG0ofEstat pfnD7yXic+HWq3x5jjiTYv VE1seUT0NJ18IQ30zZZtc5 L4mYW2M9Yg CNAhutdzozepcCW1OWUsUV UapU67Yg6haDnuQt6qKHIm ZJM7TLGtuCRdJ5NyyJ9oDw AjMDAwMDAw C1UpxQLjLEjdF823MUllIi V8QFZsegVrM4TnZMVapPrh RzN5s9Z0Fm3TTE43BB23PV 99zAAfj0A0 tAT3G6MgDGLvyrdkqtjcsS P7WQPdFHQpyJ01Cv0hmEcd Gr1cCBUaIZM5UHFftMEbQ0 YjiD5xXgDi KIGpAMArR6FeiNHfKZwjL6 59FBmkEfA4QUVhgvDbU9Id SWMuvDxtNwA6b4T7Cf9ZQj 32HI83BD50 hOTic5R9dMB7G6PiTVLhfe msormftAN8KXIzYJVvoV66 Yq7ugVyeEr5bDRZvYUW0DU HigOCjQ4Sn jA4eNqAzAHUxXNZgG9UhhI GrQXolT772RBzzXzD3PLZw qcLjU5MxAHWmeSdkDiE5i2 O3Gy1TMSrg ncd3M4QrUlztwTR+PC90YW ZmGM46zODujTIcd3tvbMr0 NdDsCQBmIBL0oXhrRJegn3 FqBSGlX92b bGFw (more content not included)... Normal [facility] Stress EKG Tracingson 2020 Stress EKG Tracings [id number]#1. 00CD:127 Normal [facility] Consent for Treatmenton 06-05 Consent for Treatment [id number]#1.0 0CD:127 Normal [facility] Coding Summary.on 06-21-2021 Coding Summary. CD:[id number] Gh 0bWw+PGhlYWQ+CN5ZROSlN 51wqFZraZ2PQ3bHBT6LSVL ZWNQGSQ1RSF3owXB9BQtzX 2VybiAv TufyoKPbCJ11FOf0OYU8qR fyAGaleZ2euFNrM1m0MjLj GU41zN17KKryMTKjZwR3Yo ZpbjsgbWFy G5tkNoXasWGbNev+PHRhYm xlIHdpZHRoPScxMDAlJyBz vLllSY1hLb0yLPUhUVPxbI xhcHNlOiBj t4ojZZSzHBvjRX3mpKdiM2 GnrIF4MDQiq5t3Xt84uEJ+ RVUnVCY3dPonVWrqg870Wt Blu2kpYZL3 jOQjPHldILC9R04vo5V0JE RqOXAtVBA4dTJ1lP9uzXia ojvpW6BnjYWiFoJ1FNC6tH BweO5dsDjs toikqV5oLbc+D55RHN8XLU ZJMZ9EVsh8C8LbVbhblUF+ QA94NJNpJB32cAHnwMMdv8 bidVu6SuOk CAWwCTL9tNtvXIxce5NmLP WhS78pgIHnc8D5AFHadMni aULgSbYsvFU2sB4iUVgzog zen0wccasg Zyruz5hcuh92oM42H13kDQ gbDZFhMQX1CHHzAEFdtBko uk3qkU2nWx7+UKjut7xad2 fqpJt7LzJk LTIhqdFgpBcnLNY6o3ByEo 55C0QkxWqhs5IcCog8va42 aUJkh7E5mIM8ZOrpDKHnvV 8dGIrgGfE7 BTPfQiAgxW12dBYvZUngWa 1xgBtgjWtvDA7wJJUkmgxa WEEeaP5yNKJmjKLeoHxxPP 4wNTBpbjtm k643BfZpNRN1IXQsmFTwT1 EgqS1mTlArEQGtULWuO3Xl iIWiJFxvN985ZSoxPxH8LM TqrbVlK0Vh QJVfgZjdBoR1z6K9Fd0Yc7 CtwgypLAZ8KMigVRF7DzM1 TtYsEvZ4U5QhMox7ZIDkqW yqBT1zE0Ko LITpccoyvsnhpFD6NSDnFJ GqeL57kGRnUYcjIj2dx7M1 a999YBGlOOItjR80Ay3itB ogMTBwdCBU aC2nbfzdj4beawmrJwNcIQ MwAZc4JIh6YLMyzKctBtPt SJG0LbS2QOF7hIQinC3agW jgwoyneW5d Oyc+H32itH4hBNW7MXJ7xk wtOAQxjqFaQT93CM28Y7Nk PjwvdGFibGU+PGRpdiBzdH qrVC7jErGs r4fda2EfLWvsW8HxJURuHL cjNdu6TOScBYX9jEB9nN9y DBSkRXztq2L9pFO0O0Yslv Vkuk9fs2ce NSGoNFmpD04npSUbf2Y1GH MwhMY5WAFmyElrUxNnjO73 Oyc+YMMezAwxc6SdPnufw2 boh4kvgQt1 BxTnTMVjpmNpnCxkPVU6t0 EjLa13L23jXXucTXXiYZAt NGVrIXPawEebuc6mrE4tGp 8+PGNvbCB3 pDN0rH4eKTAaWxL4HOvvF5 48HuQghULgPbwfu1ikz5wy lUp0EjVeRLJbftJhcHyhBY P6y7JbPt19 R15rUTqzVOBeUDHgLRHtAR GszTxfpi0xaW0hHs1+PC9j l1fyuz10xY31nHN+PHRkIH K2oGonUBwv HJZuvX0yXYjoQiV3JPZiLj YfoZ78aVXlDRtpSb1elSia pEiyCC1hLVAzurtlm424Wq Obt6cyZYTt iLXbZCktJIJ8S31gp8A1SI LhQRGqQXV4pAH6rC5avEcn bjogbGVmdDsgdmVydGljYW whPThsI258 IHRvcDsnPlBhdGllbnQgTm YfXNb2S5IaDbr2QJUzhEqt ZJ2zhVHvKAivAw1vxEjusQ cgMH1uDFLx ujnph932HwKjs6hwRLBbnN SfXXgpGLY2J04sm7K8ECZr NYSmNLN3oZK8xS8ccHtvww ogbGVmdDsg ymVcsIvoPErwGYgdJ516RC RvcDsnPkJpcnRoIERhdGU6 XP11NG72lVUxt7N5fZX5F2 BhZGRpbmct oqzymIB0RFDbNRVkqR18Ih 5hkLfpLs8cZKAyXSS1QMHg eTHnY5BvyD2xNwIiTKJrZV XrC3NcoGBf WYhdE233NJogOtE3ZBJzgw DyH3QsPUQciMbeDmA3q7L7 Wv4VR8C8PR91JV64qVYpp4 L1aXR4J6Td LEXvlccmzvmzmLS4KXHaNC WszV08Ji6cuJyvUj6wCNJx VDX6VARzcCRbZ7NshH7zSe AjMDAwMDAw Z9CjbIFvUQrkR705QLhdGc N2WMIkftCcD5FrVWJgjUuk SnC1h9J4Bh4NPGo6TJ30UA 54iGByd8P3 iGC7D3YxMOIzgiekeezvdK F5CRRqXSYgqF50Wu6sePwq Mi1oAMSsIOS0MMWumJNnC9 OiyQ3pHzBe BSOvGJObK4AdqLHuWVykE4 94SUpdQxJ9SDMaukTaH0Nc KLUfaZmxTjJ7x6J5Fw2NTR FiHI99TJB3 nPR4YD12ZS94P1FgLqyyeE FibGU+PHRhYmxlIHdpZHRo GGdrSUBeQiLnhKxvHD2gKk 9yZGVyLWNv zGipdJQwMcDgi3hkTRFrEQ vxPE3voAdkL1CbyFG3WVRi d2i7Ye00A88hL7FqfOU+PG QnhGY5uJI7 mN3dRwExVeV0AQdeJ835Vl PlbFUiJjpka9hny3cfjSm1 FyW1RXUiuwQgnLdwXZS0i7 GhTp22E10x IHdpZHRoPSIxNSUiIHZhbG wvcz1rhX1xCt9+PGNvbCB3 cQH3tS2oArNeZaY5GHrqC8 49InRvcCIv Ayypa0lxg3zcwGk2IaLyUT GlmiVnjZlwLWS6o4PaQk52 F2YmjVmot8XeDyz5hp90zT Ihb6Z2pVD2 D2LnLFFkkpuskUCfbBlrAD 9mQGZklpyjSOGjiL8cMIAv A5j4UtXcMbP9PIuqP1Uvei F7RHZeeAPd LOckTVW7N70dm9J9EGLdHO NkCMF4yIK0lR7xgCnugjue bGVmdDsgdmVydGljYWwtYW pjT360JJKp gPqjQCYerQ0kITFcjGZfeV iuJJ9sBZDwjbplIwVOK7nG GCcnWVKUMXUUQAoWLJ79UY 81hWNej5I3 sWN9V8WgZEMxlbywqxofsQ H5FSXyEDGpxJ65dUKqXLla Sv4tr0O7i533EYOjGDQaeO 15Sn9olAyv XFBdzXLKsP7dapewe5jalo noAkMyLKBlFRo9ZHo1JHQl kBymLbDgCIM8HrW4CVG9sU ChwU5xwXxj wsledB1vXom+MDgvMjEvMT v5HFptaDA+MJFsBYS9jKnt UOpjPOAlqT0lVGAaH1v5Ud QwMkM1RGyh R3UtZSPrieyhSn68oK6jDf ShCwJ2ZYgqH2YeyxS4YAQh vNZiUOysOVI5X75ju6Z2XT MwMDAwMDA7 gDC7fH5ydTchhhpxsPIfrP jpdpPccHlzDPecLQxmB133 LCLciFypGfW8NGzrXKUxNA 47SO93uDZh c5Y3xKM6T4SvTFXgmntkdk kzpSM1HNNmFFUzkO46zWCz CKoyVb6nl1L3j839MJNyUK AgeR94Ts9m jUlmSDUemYNDxC4uhgmhw6 guktnyJaJhOXUwHUt1YDp4 EGWepUaeAcEwEOR7IyX3VE W9gGZreB9b uYwhsyywwV6cAfh+RmVtYW tyJJ37CI92vCGie0B0mTS8 D9GsBMIcpnqzupftiOQ3KL HrLZXkdE36 aUGpANkyYh8pi2Z1c376CK MgTWRzwU14Si4scVnpNBHi vORGyX9rsjrxe6lhyqovXy AwMDAwMDt0 FAw8MEKvtZglBfPeNSZ7Hm F4GRG6vRNopH5prPzlvwgo uH3rEut+J7J2bFE1aXTvvY wvdGQ+PC90 bi18G4GaDezsWfu8WBXkTE B9vCX7sV0kKRWdFLcly8C3 oMJ2D1IuzfVmpf8lr8szPU TlVXdlT55v kLPls8U6JXBuoIX7FVDzbO cvCuUfzA36Isv+PGNvbGdy n8AlSbhfz8qml3qbwVf8Na MwJSIgdmFs lTnkISP7l0CoNt57Y44lYO dpZHRoPSIzMCUiIHZhbGln bz5zfR8zYt3+UXKhaDP8tM T3pT5aUsAe ZmF3XAdhC155QuZruMKyAm wpc4xww6axcYy7VeLtISKx oeGpxXlxZDK6o5DeBo30W4 TaoElvv5Yp Tax8wh52tDYrb2Y0bVV2T1 BbAJGokbsftCOuzGnrDI5y APJcxcdmRSZyhR5fXKFbU6 i6BeRiZrV4 ELsiR0DbnrN7CHNhoTCzWW LikLCDtG9hbxqzk9rixkgv HaRgHVMqWNu8WKu7JHZxpZ duOiBsZWZ0 JpN9JMJ5oOTieU1lxZjugw xchN5gKot+WHm0k8luyNGl ZH3gbTH6YD25NC74xPVpb6 Y2nTD9P0Sj NVIctlifeirgnNH7OSNwQF CbsL73Ow4csAodPs9iCNBc SXO7ADWvkTKqM8YrdO5fYo AjMDAwMDAw H9IloREfTZimJ189AHmfXa P2RMXmkfNnJ5AnTQMfmNiz PuC0r4Q4Fi2EON52JZ56IA 33qLGkl4P8 kJO1L1EeSDYapianhqswnI L4ZODgWDNavH32Wt8rnNbz Pv5xBRGpGTH6RPEggRJuF1 EodK9wXuDl JUIsJANxM2GroNAzDIwqV9 17MKsrJqS4IOMtjoRbY3Ur GDImdCqrKfE3e8K8Jy4OLp 81HO75MF23 iWZge0O8bVU0J3DtOVRnhl enznbuySB0NJDiTXQjbN86 Ic9seZugSq9nZMAgWJY6GB XesTGtL6Yt lQ7oIqYgIIJxSBMbA5WcaR EgBEomE786MNloPmZ2DCSx opHaC5OgEWHhoDbaMlK3n7 I1Df1SYCre hyn7C6KeQcubxKK+PC90YW TwMB09fHNrhFYxh4qazEv2 LkQcATJnMBP8mTofHKkgq3 EoLVQwZ66l bGFw (more content not included)... Normal [facility] BMPon 06-13-2021 Anion gap [Moles/Vol] 12 mmol/L Normal 6-16 [facility] Comment on above: Performed By: #### 2 [id number], [id number], [id number] ####[facility] [address] [place] [address] Calcium [Mass/Vol] 9.1 mg/dL Normal 8.9-11.1 [facility] Comment on above: Performed By: #### 2 [id number], [id number], [id number] ####[facility] [address] [place] [address] Chloride [Moles/Vol] 107 mmol/L Normal 101-111 [facility] Comment on above: Performed By: #### 2 106829, [id number], [id number] ####[facility] [address] [place] [address] CO2 [Moles/Vol] 25 mmol/L Normal 21-31 [facility] Comment on above: Performed By: #### 2 462953, [id number], [id number] ####[facility] [address] [facility] [place] [address] Creatinine [Mass/Vol] 0.8 mg/dL Normal 0.5-1.3 [facility] Comment on above: Performed By: #### 2 011328, 0830270, [id number] ####[facility] [address] [place] [address] Glucose [Mass/Vol] 90 mg/dL Normal 55-199 [facility] Comment on above: Result Comment: If t his glucose result represents a fasting glucose, interpretation should refer to the following reference range: 55-99 mg/dL Performed By: #### 2 078961, [id number], [id number] ####[facility] [address] [place] [address] Potassium [Moles/Vol] 3.8 mmol/L Normal 3.5-5.3 [facility] Comment on above: Performed By: #### 2 694961, 0901581, [id number] ####[facility] [address] [place] [address] Sodium [Moles/Vol] 140 mmol/L Normal 135-145 [facility] Comment on above: Performed By: #### 2 500028, 9315447, [id number] ####[facility] [address] [place] [address] Urea nitrogen [Mass/Vol] 16 mg/dL Normal 5-21 [facility] Comment on above: Performed By: #### 2 575604, 5303162, [id number] ####[facility] [address] [place] [address] Urea nitrogen/Creatinine [Mass ratio] 20 No Units Normal 10-20 [facility] Comment on above: Performed By: #### 2 196576, 3106579, [id number] ####[facility] [address] [place] [address] CBC w/Indiceson 06-13-2021 Erythrocyte distribution width (RBC) [Ratio] 12.8 % Normal 10.9-14.2 [facility] Comment on above: Performed By: #### 2 513249, 9406625, [id number] ####[facility] [address] [place] [address] Hematocrit (Bld) [Volume fraction] 38.7 % Normal 34.0-46.0 [facility] Comment on above: Performed By: #### 2 315317, 5126486, [id number] ####[facility] [address] [place] [address] Hemoglobin (Bld) [Mass/Vol] 13.2 g/dL Normal 12.0-16.0 [facility] Comment on above: Performed By: #### 2 237807, 5740851, [id number] ####[facility] [address] [place] [address] MCH (RBC) [Entitic mass] 32.2 pg Normal 27.0-34.0 [facility] Comment on above: Performed By: #### 2 089166, 2231789, [id number] ####[address] [address] MCHC (RBC) [Mass/Vol] 34.0 g/dL Normal 31.4-36.0 [facility] Comment on above: Performed By: #### 2 902733, 6942388, [id number] ####[address] [address] MCV (RBC) [Entitic vol] 94.7 fL Normal 80.0-100.0 [facility] Comment on above: Performed By: #### 2 773645, 5618602, [id number] ####[address] [address] Platelet mean volume (Bld) [Entitic vol] 7.1 fL Normal 6.4-10.8 [facility] Comment on above: Performed By: #### 2 853401, 0379110, [id number] ####[address] [address] Platelets (Bld) [#/Vol] 346.0 E9/L Normal 150.0-500.0 [facility] Comment on above: Performed By: #### 2 544519, 0481528, [id number] ####[address] [address] RBC (Bld) [#/Vol] 4.1 E12/L Low 4.3-5.9 [facility] Comment on above: Performed By: #### 2 900597, 3592115, [id number] ####[address] [address] WBC corrected for nucl RBC Auto (Bld) [#/Vol] 8.8 E9/L Normal 4.0-11.0 [facility] Comment on above: Performed By: #### 2 499042, 4760575, [id number] ####[facility] [address] [place] [address] Consent for Treatmenton Consent for Treatment [id number]#1.0 0CD:127 Normal [facility] XR Chest 2 Viewson XR Chest 2 Views Exam Date/Time: 06/13/2021 16:30 EDT Reason for Exam: Right trigger thumb, gongolian cyst Report IMPRESSION: NO EVIDENCE OF ACTIVE CHEST DISEASE. CLINICAL HISTORY: Right trigger thumb, ganglion cyst. Preop. COMPARISON: 12/31/2020. COMMENT: The heart is normal in size. The mediastinum is unremarkable. The lungs appear clear. No infiltration nor pleural effusion is evident. No significant change is noted when compared to the prior exam. FINAL REPORT Dictated: 06/13/2021 5:03 pm Elton Cooper M.D. Signed (Electronic Signature): 06/13/2021 5:03 pm Signed by: Elton Cooper M.D. Transcribed by: DENISE Technologist: DUNCAN Normal [facility] eGFRon 06-13-2021 GFR/1.73 sq M.predicted among blacks MDRD (S/P/Bld) [Vol rate/Area] mL/min/{1.73_m2} Normal >=59 [facility] Comment on above: Order Comment: Order added by Discern Expert. Result Comment: eGFR is race adjusted. AA=. Performed By: #### 2 [id number], [id number], [id number] ####[facility] [address] [place] [address] GFR/1.73 sq M.predicted among non-blacks MDRD (S/P/Bld) [Vol rate/Area] mL/min/{1.73_m2} Normal >=59 [facility] Comment on above: Order Comment: Order added by Discern Expert. Result Comment: Repairer S[employer] mahad kidney disease could be indicated at eGFR's of less than 60 mL/min/1.73m2. Kidney failure is indicated at less than 15 mL/min/1.73m2. Performed By: #### 2 [id number], [id number], [id number] ####[facility] [address] [place] [address] Physician Orderon 06-01-2021 Physician Order [id number]#1.0 0CD:127 Normal [facility] Physician Order [id number]#1. 00CD:127 Normal [facility] IntraOperative Documentson 0 01-14-2021 IntraOperative Documents [id number]#1. 00CD:127 Normal [facility] Coding Summary.on 01-12-2021 Coding Summary. CODING DATE: 01/12/2021 FINAL [facility] STATUS: Home (Routine DC) PAYOR: Savage APC DESCRIPTION 5112 Level 2 Musculoskeletal Procedures ADMIT DX: REASON FOR VISIT DX: M19.041 Primary osteoarthritis, right hand FINAL DX: PRINCIPAL: M19.041 Primary osteoarthritis, right hand SECONDARY: K21.9 Gastro-esophageal reflux disease without esophagitis J44.9 Chronic obstructive pulmonary disease, unspecified PYMT PROC APC STAT DESCRIPTION DOCTOR NAME DATE 69488 5112 J1 Excision of lesion of Allan Lowery DO 01/07/2021 tendon sheath or joint capsule (eg, cyst, mucous cyst, or ganglion), hand or finger F6 Right hand, second digit 01592 Anesthesia for all Wilver Melvin Jr, DO 01/07/2021 procedures on nerves, muscles, tendons, fascia, and bursae of forearm, wrist, and hand NOTE: The code number assigned matches the documented diagnosis and / or procedure in the patient's chart. However, the narrative phrase printed from the coding software may appear abbreviated, or result in slightly different terminology. Revised Coded By: Suzette Holguin Revised Date Saved: 01/12/2021 03:47 pm Normal [facility] Progress Note-Physicianon Progress Note-Physician Patient: MARGRET ENCINAS Age: 50 years Sex: Female : 1970 Associated Diagnoses: None Author: Melvin Jr DO, Wilver A Postoperative Information Post Operative Note: Post Anesthesia Care Unit. Anesthetic utilized: General. Health Status Allergies: Allergic Reactions (Selected) Severity Not Documented Contrast Dye- Tachycardia. Problem list: All Problems COPD (chronic obstructive pulmonary disease) / SNOMED CT 96411201 / Confirmed GERD (gastroesophageal reflux disease) / SNOMED CT 088190601 / Confirmed Elevated triglycerides with high cholesterol / SNOMED CT 518774521 / Confirmed Vitamin D deficiency / SNOMED CT 31629102 / Confirmed Physical Examination Vital Signs 01/07/2021 16:40 EST Heart Rate Monitored 90 bpm Respiratory Rate Monitored 17 br/min Systolic Blood Pressure 119 mmHg Diastolic Blood Pressure 82 mmHg SpO2 96 % 01/07/2021 16:35 EST Heart Rate Monitored 100 bpm Respiratory Rate Monitored 21 br/min Systolic Blood Pressure 110 mmHg Diastolic Blood Pressure 84 mmHg SpO2 96 % 01/07/2021 16:30 EST Temperature Temporal Artery 36.4 DegC Heart Rate Monitored 107 bpm HI Respiratory Rate Monitored 16 br/min Systolic Blood Pressure 120 mmHg Diastolic Blood Pressure 86 mmHg SpO2 95 % 01/07/2021 16:25 EST Heart Rate Monitored 96 bpm bpm Respiratory Rate 20 br/min br/min SpO2 95 % % 01/07/2021 16:20 EST Heart Rate Monitored 115 bpm bpm Respiratory Rate 24 br/min br/min Systolic Blood Pressure 101 mmHg mmHg Diastolic Blood Pressure 62 mmHg mmHg SpO2 93 % % 01/07/2021 16:15 EST Heart Rate Monitored 100 bpm bpm Respiratory Rate 23 br/min br/min Systolic Blood Pressure 93 mmHg mmHg Diastolic Blood Pressure 57 mmHg mmHg SpO2 93 % % 01/07/2021 16:10 EST Heart Rate Monitored 106 bpm bpm Respiratory Rate 25 br/min br/min Systolic Blood Pressure 113 mmHg mmHg Diastolic Blood Pressure 81 mmHg mmHg SpO2 95 % % 01/07/2021 16:05 EST Heart Rate Monitored 85 bpm bpm Respiratory Rate 2 br/min br/min Systolic Blood Pressure 114 mmHg mmHg Diastolic Blood Pressure 75 mmHg mmHg SpO2 100 % % 01/07/2021 16:02 EST Systolic Blood Pressure 125 mmHg mmHg Diastolic Blood Pressure 75 mmHg mmHg 01/07/2021 16:00 EST Respiratory Rate 1 br/min br/min 01/07/2021 15:18 EST Respiratory Rate 16 br/min 01/07/2021 13:25 EST Temperature Oral 37 DegC (Modified) Peripheral Pulse Rate 95 bpm (Modified) Respiratory Rate 16 br/min (Modified) Systolic Blood Pressure 120 mmHg (Modified) Diastolic Blood Pressure 87 mmHg (Modified) Blood Pressure Location Other: Right arm 110/74 (Modified) SpO2 98 % (Modified) 01/07/2021 13:07 EST Heart Rate Monitored 71 bpm Systolic Blood Pressure 121 mmHg Diastolic Blood Pressure 81 mmHg Blood Pressure Location Left arm Mean Arterial Pressure, Monitered 94 mmHg 01/07/2021 13:07 EST Temperature Oral 36.7 DegC Heart Rate Monitored 72 bpm Respiratory Rate 20 br/min Systolic Blood Pressure 129 mmHg Diastolic Blood Pressure 83 mmHg Blood Pressure Location Right arm Mean Arterial Pressure, Monitered 99 mmHg SpO2 99 % 01/07/2021 13:07 EST Apical Heart Rate 67 bpm Vital Signs (last 24 hrs) Last Charted Temp Oral 36.7 DegC (JAN 07 13:07) Heart Rate Apical 67 bpm (JAN 07 13:07) Resp Rate 17 br/min (JAN 07 16:40) SBP 119 mmHg (JAN 07 16:40) DBP 82 mmHg (JAN 07 16:40) SpO2 96 % (JAN 07 16:40) Pain assessment: Pain Assessment 01/07/2021 16:35 EST Pain Symptoms Self Report No, able to self report Patient Preferred Pain Tool Numeric rating Numeric Pain Scale 0 = No pain Numeric Pain Score 0 01/07/2021 13:07 EST Preliminary Pain Scale 0 . General: Alert and oriented, No acute distress. Respiratory: Lungs are clear to auscultation. Cardiovascular: Normal rate, Regular rhythm. Neurologic: Normal sensory. Review / Management Condition: Stable. Assessment Anesthetic outcome No anesthetic complications noted. Adequate pain relief. TOLERATING PO INTAKE. voiding w/o diff.. No Complaint of nausea and vomiting. Plan Transfer/ Discharge: Condition stable. [facility] Comment on above: Result Comment: Elec tronically Signed By: Wilver Melvin Jr, DO\.mac\Date and Time Signed: 01/12/21 08:02 EST H&P Updateon 01-11-2021 H&P Update [id number] 02 [id number]#1. 00CD:127 [facility] H&P Update [id number]#1. 00CD:127 [facility] Main OR Intraoperative Recor don 01-11-2021 Main OR Intraoperative Record IntraOp Document Type FT Summary Primary Physician: Allan Lowery DO Finalized Date/Time: 01/11/21 14:23:47 Pt. Name: MARGRET ENCINAS Heavenly/Sex: 1970 Female Med Rec #: [id number] Physician: Allan Lowery DO Financial #: [id number] Pt. Type: A Room/Bed: 01/03 Admit/Disch: 01/07/21 12:50:42 - 01/07/21 18:05:00 Institution: Case Times FT Entry 1 Patient Times In Room 01/07/21 15:58:00 Out Room 01/07/21 16:28:00 Procedure Times Start 01/07/21 16:17:00 Stop 01/07/21 16:23:00 Anesthesia Times Start 01/07/21 15:58:00 Stop 01/07/21 16:28:00 Last Modified By: Leonie Bullard RN 01/07/21 16:28:27 General Comments: 01/11/2021 Chart opened to review and send charges. Angie TAO. Case Attendance FT Entry 1 Entry 2 Entry 3 Case Attendee Wilver Melvin Jr, DO, DO, Michael T McClain CAR DRYER, Yaima Puentes Role Performed Anesthesiologist of Surgeon - Primary Scrub - Primary Record Time In 01/07/21 15:58:00 01/07/21 16:10:00 01/07/21 15:58:00 Time Out 01/07/21 16:28:00 01/07/21 16:27:00 01/07/21 16:28:00 Procedure CYST LESION CYST LESION CYST LESION REMOVAL(Right) REMOVAL(Right) REMOVAL(Right) Comments Last Modified By: Leonie Bullard RN 01/07/21 Leonie Bullard RN 01/07/21 Leonie Bullard RN 01/07/21 16:35:06 16:35:37 16:35:06 Entry 4 Case Attendee Leonie Bullard RN Role Performed Card Hand - Primary Time In 01/07/21 15:58:00 Time Out 01/07/21 16:28:00 Procedure CYST LESION REMOVAL(Right) Comments Last Modified By: Leonie Bullard RN 01/07/21 16:35:06 Perioperative Protocols FT Pre-Care Text: Implements protective measures prior to operative or invasive procedure, confirms identity before the operative or invasive procedure, verifies operative procedure, surgical site, and laterality Entry 1 Procedure(s) CYST LESION Patient Identity Birthday, ID Band REMOVAL(Right) Verified (select at Check, Patient least 2): Participation Consents / H and P Anesthesia Consent, Operative Site Present Verified HandP, Surgery/Procedure Marking Verified Consent Surgical Site Yes Laterality Verified Yes Verified Procedure Verified Yes Correct Patient Yes Position Verified Availability Equipment, Medication Prep Dry Yes Verified (If Applicable) PreOp Antibiotic No Time Out Olegario Barker DO, Wilver Puentes, Given Participants Allan Lowery DO, Yue TAO, Juan Miguel Carpenter RN, Abby Time Out Complete 01/07/21 16:10:00 Outcomes Met? Yes Last Modified By: Leonie Bullard RN 01/07/21 16:35:46 Post-Care Text: The patient is free from signs and symptoms of injury caused by extraneous objects Allergy Information FT Pre-Care Text: Verifies allergies Entry 1 Allergies Reviewed? Yes Allergies Reviewed Self/Patient With Outcomes Met? Yes Last Modified By: Leonie Bullard RN 01/07/21 15:44:30 Post-Care Text: The patient received appropriate medication(s) safely administered during the perioperative period Surgical Procedures FT Entry 1 Procedure Description Procedure CYST LESION REMOVAL Modifiers Right Surgeon Description RIGHT INDEX FINGER EXCISION MUCOUS CYST Primary Procedure Yes Primary Surgeon Allan Lowery DO Start 01/07/21 16:17:00 Stop 01/07/21 16:23:00 Anesthesia Type General Surgical Service Orthopedics Wound Class 1 - Clean Last Modified By: Leonie Bullard RN 01/07/21 16:35:54 General Case Data FT Pre-Care Text: Classifies surgical wound, implements aseptic technique, initiates traffic control Entry 1 Case Information OR OR 5 FT Case Level Level 2 Wound Class 1 - Clean Specialty Orthopedics ASA Class 3 Preop Diagnosis RIGHT INDEX MUCOUS CYST Postop Same As Preop Yes Postop Diagnosis RIGHT INDEX MUCOUS CYST Outcomes Met? Yes Last Modified By: Surjit Her CST 01/11/21 14:20:52 Post-Care Text: The patient is free from signs and symptoms of infection Skin Assessment (Pre Procedure) FT Pre-Care Text: Implements protective measures to prevent skin/ tissue injury due to thermal or mechanical sources Evaluates for signs and symptoms of physical injury to skin and tissue Entry 1 Skin Integrity Intact, [place], Warm, and Skin Abnormality No Dry Outcomes Met? Yes Last Modified By: Leonie Bullard RN 01/07/21 16:36:05 Post-Care Text: The patient is free from signs and symptoms of injury caused by extraneous objects Patient Positioning FT Pre-Care Text: Identifies physical alterations that require additional precautions for procedure-specific positioning, verifies presence of prosthetics or corrective devices, positions the patient, evaluates the patient for signs and symptoms of injury as a result of positioning Entry 1 Procedure CYST LESION Body Position Supine REMOVAL(Right) Feet Uncrossed? Yes Left Arm Position Extended on Padded Arm Board Right Arm Position Extended on Padded Arm Left Leg Position Extended Board Right Leg Position Extended Positioning Device Pillow Under Head Large, Safety Str (more content not included)... Normal [facility] Coding Summary.on 01-10-2021 Coding Summary. CODING DATE: 01/10/2021 FINAL [facility] STATUS: Home (Routine DC) PAYOR: Savage APC DESCRIPTION 5521 Level 1 Imaging without Contrast ADMIT DX: REASON FOR VISIT DX: Z01.818 Encounter for other preprocedural examination FINAL DX: PRINCIPAL: Z01.818 Encounter for other preprocedural examination SECONDARY: PYMT PROC APC STAT DESCRIPTION DOCTOR NAME DATE NOTE: The code number assigned matches the documented diagnosis and / or procedure in the patient's chart. However, the narrative phrase printed from the coding software may appear abbreviated, or result in slightly different terminology. Coded By: Catherine Sarmiento CphT Date Saved: 01/10/2021 12:05 pm [facility] Consent for Anesthesiaon Consent for Anesthesia [id number]#1.0 0CD:127 [facility] Discharge Instructionson Discharge Instructions [id number]#1.0 0CD:127 [facility] IntraOperative Documentson 0 01-10-2021 IntraOperative Documents [id number]#1.0 0CD:127 Normal [facility] IntraOperative Documents [id number]#1.0 0CD:127 Normal [facility] Preoperative Documentson Preoperative Documents [id number]#1.0 0CD:127 Normal [facility] Prescriptions/Work Noteson 0 01-10-2021 Prescriptions/Work Notes [id number]#1.0 0CD:127 Normal [facility] Operative Reporton Operative Report Date of Surgery: 01/07/2021 SURGEON: Allan Lowery D.O. PREOPERATIVE DIAGNOSIS: Right index finger distal interphalangeal (DIP) based mucous cyst with underlying osteoarthritis POSTOPERATIVE DIAGNOSIS: Right index finger distal interphalangeal (DIP) based mucous cyst with underlying osteoarthritis OPERATION: Right index finger excision of mucous cyst ANESTHESIA: Monitored anesthesia care ANESTHESIOLOGIST: Wilver Melvin Jr., D.O. TOURNIQUET TIME: See Nurse's records SPECIMEN: Mucous cyst with skin ESTIMATED BLOOD LOSS: Zero IMPLANTS: None COMPLICATIONS: None HISTORY AND INDICATIONS: Rodrick is a 50-year-old female with a several-month history of increasing cystic formation to the right index finger. She has tried different techniques to get it to calm down. It is a poor location where she has pain with any form of direct pressure or bumping it. Please see Office Notes, History and Physical. The site is marked preoperatively. All questions are answered preoperatively. Consent form signed and witnessed. PROCEDURE: Margret is taken to the Operative Suite and placed in a supine position. Anesthesia provided. A well-padded tourniquet is placed on the right upper brachium. The arm was prepped and draped in the sterile fashion with Chloraprep. Time-out procedure occurred consistent with the consent form, History and Physical, preoperative marked site. Of note, the patient was stabilized with MAC anesthesia with Dr. Melvin. She did have a preoperative breathing treatment. Once the arm was exsanguinated, tourniquet was inflated, skin was tested for adequate analgesia. The mucous cyst was approximately the size of a pea. It was dissected and ellipticized with skin, full thickness. The base was irrigated and underwent cautery with a needle point Bovie. Complete resection and removal was achieved. No expressible fluid from the deep tissues. No rent to the joint visualized. After copious irrigation, the skin was closed with one horizontal mattress suture of 4-0 Nylon. 4 cc of 0.25% plain Marcaine was injected with digital block. Bacitracin, Adaptic, well-padded sterile soft dressing was applied. Tourniquet was deflated. The patient was awakened from anesthesia and transferred to the Recovery Room in stable and satisfactory condition. CASE: Clean and elective COUNTS: Sponge and needle count correct SPECIMEN: Mucous cyst with skin CONDITION: The patient's condition satisfactory Graham Galvan Dictated: 01/07/2021 #[id number] Typed: 01/08/2021 #[id number] cc: Waqas Villaseñor D.O. [facility] Comment on above: Result Comment: Elec tronically Signed By: Allan Lowery DO\.br\Date and Time Signed: 01/09/21 07:06 EST Progress Note-Physicianon Progress Note-Physician Patient: MARGRET ENCINAS Age: 50 years Sex: Female : 1970 Associated Diagnoses: None Author: Wilver Melvin Jr, DO Preoperative Information Time patient last ate or drank:=== (npo 8 hours) Anesthesia history: Patient history: No prior anesthesia problems. Re-evaluation prior to induction: Completed, Initial evaluation reviewed. Review of Systems Respiratory: No shortness of breath. Cardiovascular: No chest pain. Hematology/Lymphatics: No bruising tendency, No bleeding tendency. Health Status Allergies: Allergic Reactions (All) Severity Not Documented Contrast Dye- Tachycardia. Current medications: (Selected) Documented Medications Documented Celebrate Multivitamin: 1 tab, Oral, Daily, Prophylaxis Nexium 40 mg Cap-EC: 40 mg = 1 cap(s), Oral, Daily, Control of stomach acid Spiriva Respimat 10 ACT 2.5 mcg/inh inhalation aerosol: = 2 puff(s), Inhalation, Daily, COPD TriCor 145 mg Tab: 145 mg = 1 tab(s), Oral, Daily, High cholesterol Vitamin D2 50,000 intl units (1.25 mg) oral capsule: 50,000 International_Unit = 1 cap(s), Oral, qWeek, Prophylaxis aspirin 81 mg Oral EC Tab: 81 mg = 1 tab(s), Oral, Daily, Blood Thinner cetirizine 10 mg oral capsule: 10 mg = 1 cap(s), Oral, Daily, PRN for allergy symptoms, Allergy symptoms fluticasone propionate: 100 mcg, Inhalation, Daily, Allergy symptoms Problem list: All Problems COPD (chronic obstructive pulmonary disease) / SNOMED CT 59685217 / Confirmed GERD (gastroesophageal reflux disease) / SNOMED CT 334689116 / Confirmed Elevated triglycerides with high cholesterol / SNOMED CT 304848821 / Confirmed Vitamin D deficiency / SNOMED CT 59546540 / Confirmed Histories Past Medical History: No active or resolved past medical history items have been selected or recorded. Family History: No family history items have been selected or recorded. Procedure history: History of hysterectomy (2659923654). Hemorrhoidectomy (90560289). Extraction of wisdom tooth (437359141). Tonsillectomy and adenoidectomy (283204486). Multiple polyps removal of vocal cords (94661955). Social History Social & Psychosocial Habits Alcohol 12/31/2020 Use: Current Type: Beer, Wine Frequency: 1-2 times per week 12/31/2020 Risk Assessment: Low Risk Tobacco 12/31/2020 Tobacco Use: 10 or more cigarettes (1/ Type: Cigarettes 12/31/2020 Risk Assessment: High Risk . Physical Examination VS/Measurements Respiratory: Lungs are clear to auscultation. Cardiovascular: Normal rate, Regular rhythm. Review / Management Results review Interpretation of Outside Results Chest x-ray results Radiology results ECG interpretation Condition Plan [employer] (ASA) physical status classification: Class III. Anesthetic Preoperative Plan Anesthesia: General. . Anesthetic plan, risks, benefits, and alternatives discussed with the patient and/or family. Risks discussed: nausea, vomiting, headache, sore throat, dental injury, serious complications. Patient verbalized understanding. Communication: face to face with (patient 5 minutes, Pt educated on the importance of smoking cessation.). Normal [facility] Comment on above: Result Comment: Elec tronically Signed By: Wilver Melvin Jr, DO.br\Date and Time Signed: 01/09/21 11:58 EST Consent for Treatmenton Consent for Treatment [id number]#1.0 0CD:127 Normal [facility] H&P Updateon 01-07-2021 H&P Update [id number]#1. 00CD:127 Normal [facility] Main OR PACU I Recordon Main OR PACU I Record PACU Phase I Document Type FT Summary Primary Physician: Allan Lowery DO Finalized Date/Time: 01/07/21 17:11:06 Pt. Name: MARGRET ENCINAS/Sex: 1970 Female Med Rec #: [id number] Physician: Allan Lowery DO Financial #: [id number] Pt. Type: A Room/Bed: 01/03 Admit/Disch: 01/07/21 12:50:42 - Institution: Case Times PACU I FT Pre-Care Text: Identifies barriers to communication and implements measures to provide psychological support Develops individualized plan of care, and ensures continuity of care Maintains patient's dignity and privacy, and maintains patient confidentiality Identifies and reports philosophical, cultural, and spiritual beliefs and values Identifies individual values and wishes concerning care Implements aseptic technique, and administers prescribed antibiotic therapy and immunizing agents as ordered Evaluates postoperative tissue perfusion Implements thermoregulation measures, and monitors body temperature Evaluates postoperative respiratory status Evaluates postoperative cardiac status Evaluates postoperative neurological status Assesses pain control, collaborated in initiating patient-controlled analgesia and implements alternative methods of pain control Verifies allergies, administers prescribed medications and solutions, evaluates response to medications Entry 1 In PACU I 01/07/21 16:30:00 Discharge from PACU 01/07/21 17:00:00 I Outcomes Met? Yes Last Modified By: Susy Cruz RN 01/07/21 17:10:41 Post-Care Text: The patient demonstrates knowledge of the expected response to the operative or invasive procedure The patient's care is consistent with the individualized perioperative plan of care The patient's right to privacy is maintained The patient's value system, lifestyle, ethnicity, and culture are considered, respected, and incorporated into the perioperative plan of care The patient participates in decisions affecting his or her perioperative plan of care The patient is free from signs and symptoms of infection The patient has wound/tissue perfusion consistent with or improved from baseline levels established preoperatively The patient is at or returning to normothermia at the conclusion of the immediate postoperative period The patient's respiratory function is consistent with or improved from baseline levels established preoperatively The patient's cardiovascular status is consistent with or improved from baseline levels established preoperatively The patient's cardiovascular status is consistent with or improved from baseline levels established preoperatively The patient demonstrates and/or reports adequate pain control throughout the perioperative period The patient received appropriate medication(s), safely administered during the perioperative period Acuity Level PACU I FT Entry 1 Start Time 01/07/21 16:30:00 Stop Time 01/07/21 17:00:00 Acuity Level Acuity Level I Last Modified By: Susy Cruz RN 01/07/21 17:11:02 Finalized By: Susy Cruz RN Document Signatures Signed By: Susy Cruz RN 01/07/21 17:11 Normal [facility] Main OR PACU II Recordon Main OR PACU II Record PACU Phase II Document Type FT Summary Primary Physician: Allan Lowery DO Finalized Date/Time: 01/07/21 19:30:58 Pt. Name: MARGRET ENCINAS/Sex: 1970 Female Med Rec #: [id number] Physician: Allan Lowery DO Financial #: [id number] Pt. Type: A Room/Bed: Admit/Disch: 01/07/21 12:50:42 - Institution: Case Times PACU II FT Pre-Care Text: Identifies barriers to communication and implements measures to provide psychological support and determines knowledge level Develops individualized plan of care, and ensures continuity of care Maintains patient's dignity and privacy, and maintains patient confidentiality Identifies and reports philosophical, cultural, and spiritual beliefs and values Identifies individual values and wishes concerning care administers prescribed antibiotic therapy and immunizing agents as ordered, Evaluates postoperative tissue perfusion Implements thermoregulation measures, and monitors body temperature Evaluates postoperative respiratory status Evaluates postoperative cardiac status Evaluates postoperative neurological status Assesses pain control, collaborated in initiating patient-controlled analgesia and implements alternative methods of pain control Verifies allergies, administers prescribed medications and solutions, evaluates response to medications Entry 1 In PACU II 01/07/21 17:05:00 Discharge from PACU 01/07/21 18:05:00 II Outcomes Met? Yes Last Modified By: Dipti Ledbetter RN 01/07/21 19:30:57 Post-Care Text: The patient demonstrates knowledge of the expected response to the operative or invasive procedure The patient's care is consistent with the individualized perioperative plan of care The patient's right to privacy is maintained The patient's value system, lifestyle, ethnicity, and culture are considered, respected, and incorporated into the perioperative plan of care The patient participates in decisions affecting his or her perioperative plan of care. The patient is free from signs and symptoms of infection The patient has wound/tissue perfusion consistent with or improved from baseline levels established preoperatively The patient is at or returning to normothermia at the conclusion of the immediate postoperative period The patient's respiratory function is consistent with or improved from baseline levels established preoperatively The patient's cardiovascular status is consistent with or improved from baseline levels established preoperatively The patient's neurological status is consistent with or improved from baseline levels established preoperatively The patient demonstrates and/or reports adequate pain control throughout the perioperative period The patient received appropriate medication(s), safely administered during the perioperative period Finalized By: Dipti Ledbetter RN Document Signatures Signed By: Dipti Ledbetter RN 01/07/21 19:30 Normal [facility] Monitor Recordon 01-07-2021 Monitor Record [id number]#1. 00CD:127 Normal [facility] Monitor Record [id number]#1. 00CD:127 Normal [facility] Inpatient Patient Summaryon 01-06-2021 Inpatient Patient Summary [address] [address] [facility] Clinical Discharge Instructions PERSON INFORMATION Name: MARGRET ENCINAS [facility]#:[id number] PHYSICIANS Admitting Physician: Allan Lowery DO Attending Physician: Allan Lowery DO PCP: ALICE SOLIS MD Discharge Diagnosis: Ganglion cyst of finger of right hand Comment: PATIENT EDUCATION INFORMATION Instructions: Medication Leaflets: Follow up: With: Address: When: Allan Lowery [address] [place], [place] [id number] Business (1) Comments: Keep scheduled appointment Type Location Start [facility] Surgery [facility] Surgical Services 01/07/2021 3:30 PM 01/07/2021 4:03 PM Confirmed MEDICATION LIST Medications to Continue with No Changes Other Medications aspirin (aspirin 81 mg Oral EC Tab) 1 Tablets By Mouth every day. cetirizine (cetirizine 10 mg oral capsule) 1 Capsules By Mouth every day as needed for allergy symptoms. ergocalciferol (Vitamin D2 50,000 intl units (1.25 mg) oral capsule) 1 Capsules By Mouth every week. esomeprazole (Nexium 40 mg Cap-EC) 1 Capsules By Mouth every day. fenofibrate (TriCor 145 mg Tab) 1 Tablets By Mouth every day. fluticasone (fluticasone propionate) 100 Microgram Inhalation every day. multivitamin with minerals (Celebrate Multivitamin) 1 tab By Mouth every day. tiotropium (Spiriva Respimat 10 ACT 2.5 mcg/inh inhalation aerosol) 2 Puffs Inhalation every day. Comment: Normal [facility] Outpatient Surgery Discharge Instructionon 01-06-2021 Outpatient Surgery Discharge Instruction [facility] [address] [place], [place] [address] Patient Discharge Instructions PERSON INFORMATION Name: MARGRET ENCINAS Date of : 1970 Current Date: 01/06/2021 13:05:53 PHYSICIANS Admitting Physician: Allan Lowery DO Discharge Diagnosis: Ganglion cyst of finger of right hand MARGERT ENCINAS has been given the following list of follow-up instructions, prescriptions, and patient education materials: PATIENT FOLLOW-UP INFORMATION Diet: Regular, Drink liquids and eat a light meal Discharge Activity: Ambulate as tolerated, Arrange for a responsible adult supervision for 24 hours, Expect mild pain, Expect minimal amount of drainage and/or bleeding, Do not lift more than 5 lbs Discharge Restrictions: No driving for 24 hrs, Do not operate machinery or tools, Do not make important decisions for 24 hours, Do not drink alcoholic beverages for 24 hours Call Your Doctor For: Persistent or heavy bleeding, Temperature above 101.5 degrees, Redness, swelling, or pus at operative site, Severe pain at the operative site, Persistent vomiting Wound Care Instructions: Keep incision dry, Remove dressing as instructed Remove Your Dressing In 2 Days IF UNABLE TO CONTACT YOUR PHYSICIAN AND YOU FEEL IT IS AN EMERGENCY, GO TO THE NEAREST EMERGENCY ROOM OR CALL 911 HUANG Castellanos SAMANTHA, have received the attached patient education materials/instructions and have verbalized understanding: May we do a follow up call? Yes No I was present when discharge instructions were given Patient Signature Date Clinican/Nurse Signature ___ Date Follow up: With: Address: When: Allan Lowery [address] [place], [place] [id number] Business (1) Comments: Keep scheduled appointment Type Location Start [facility] Surgery [facility] Surgical Services 01/07/2021 3:30 PM 01/07/2021 4:03 PM Confirmed Pharmacy Information: You may receive a survey from [employer] asking you to rate your care experience. Your feedback is important and will help us understand what we do well and how we can improve the quality of care we provide to you, your loved ones and our community. It?s an honor to serve you. Thank you for choosing [facility] HERE ARE THE MEDICATION CHANGES THAT OCCURRED DURING YOUR HOSPITAL STAY Medications to Continue with No Changes Other Medications aspirin (aspirin 81 mg Oral EC Tab) 1 Tablets By Mouth every day. cetirizine (cetirizine 10 mg oral capsule) 1 Capsules By Mouth every day as needed for allergy symptoms. ergocalciferol (Vitamin D2 50,000 intl units (1.25 mg) oral capsule) 1 Capsules By Mouth every week. esomeprazole (Nexium 40 mg Cap-EC) 1 Capsules By Mouth every day. fenofibrate (TriCor 145 mg Tab) 1 Tablets By Mouth every day. fluticasone (fluticasone propionate) 100 Microgram Inhalation every day. multivitamin with minerals (Celebrate Multivitamin) 1 tab By Mouth every day. tiotropium (Spiriva Respimat 10 ACT 2.5 mcg/inh inhalation aerosol) 2 Puffs Inhalation every day. PATIENT EDUCATION INFORMATION Instructions: [facility] Patient Education - Texton 0 01-06-2021 Patient Education - Text [facility] Consent for Procedure/Surger yon 01-04-2021 Consent for Procedure/Surgery [id number]#1. 00CD:127 [facility] Outside Recordson 01-04-2021 Outside Records [id number]#1. 00CD:127 Normal [facility] BUNon 12-31-2020 Urea nitrogen [Mass/Vol] 11 mg/dL Normal 5- [facility] Comment on above: Performed By: #### 1 [id number], 5027166, 2118189, 0058817, 2071044, 0959107 ####[facility] [address] [place] [address] CBC w/Indiceson 12-31-2020 Erythrocyte distribution width (RBC) [Ratio] 12.3 % Normal 10.9-14.2 [facility] Comment on above: Performed By: #### 1 9282760, 8074540, 6283837, 9659796, 7757704, 5072880 ####[facility] [address] [place] [address] Hematocrit (Bld) [Volume fraction] 41.5 % Normal 34.0-46.0 [facility] Comment on above: Performed By: #### 1 7353690, 1445021, 9261578, 2123546, 0186363, 5432894 ####[place] [address] [place] [address] Hemoglobin (Bld) [Mass/Vol] 14.1 g/dL Normal 12.0-16.0 [facility] Comment on above: Performed By: #### 1 6302187, 0304837, 3259504, 6034885, 4262275, 9109222 ####[place] [address] MCH (RBC) [Entitic mass] 31.5 pg Normal 27.0-34.0 [facility] Comment on above: Performed By: #### 1 2644417, 6308628, 1183722, 9867106, 8534819, 8038027 ####[address] [address] MCHC (RBC) [Mass/Vol] 34.0 g/dL Normal 31.4-36.0 [facility] Comment on above: Performed By: #### 1 8603604, 5821586, 4405708, 7369578, 1629648, 2522287 ####[place] [address] [place] [address] MCV (RBC) [Entitic vol] 92.8 fL Normal 80.0-100.0 [facility] Comment on above: Performed By: #### 1 2043779, 2008621, 5157943, 2824481, 5926328, 3120218 ####[address] [address] Platelet mean volume (Bld) [Entitic vol] 7.5 fL Normal 6.4-10.8 [facility] Comment on above: Performed By: #### 1 7597717, 2193214, 5758674, 8251968, 7565552, 6976932 ####[facility] [address] [place] [address] Platelets (Bld) [#/Vol] 380.0 E9/L Normal 150.0-500.0 [facility] Comment on above: Performed By: #### 1 3330731, 9297155, 1193526, 8879856, 1796030, 1066692 ####[facility] [address] [place] [address] RBC (Bld) [#/Vol] 4.5 E12/L Normal 4.3-5.9 [facility] Comment on above: Performed By: #### 1 5006125, 1026791, 4947538, 9889949, 8841539, 2457961 ####[facility] [address] [place] [address] WBC corrected for nucl RBC Auto (Bld) [#/Vol] 6.6 E9/L Normal 4.0-11.0 [facility] Comment on above: Performed By: #### 1 8967355, 3644382, 6949478, 3721452, 4807274, 8237611 ####[facility] [address] [place] [address] Consent for Treatmenton 12-07 Consent for Treatment [id number]#1.0 0CD:127 Normal [facility] Creatinineon 12-31-2020 Creatinine [Mass/Vol] 0.7 mg/dL Normal 0.5-1.3 [facility] Comment on above: Performed By: #### 1 5768808, 1665640, 4279376, 0669678, 8547157, 6799071 ####[facility] [address] [place] [address] Glucoseon 12-31-2020 Glucose [Mass/Vol] 122 mg/dL Normal 55-199 [facility] Comment on above: Performed By: #### 1 4569927, 5071048, 9948063, 2324314, 5083711, 0927911 ####[facility] [address] [place] [address] Lyteson 12-31-2020 Anion gap [Moles/Vol] 14 mmol/L Normal 6-16 [facility] Comment on above: Performed By: #### 1 9581234, 5377695, 7152390, 9737218, 0064235, 6610974 ####[facility] [address] [place] [address] Chloride [Moles/Vol] 107 mmol/L Normal 101-111 [facility] Comment on above: Performed By: #### 1 3405821, 9043179, 0256867, 3492323, 0200993, 5421966 ####[facility] [address] [place] [address] CO2 [Moles/Vol] 21 mmol/L Normal 21-31 [facility] Comment on above: Performed By: #### 1 0887198, 0832044, 5010074, 6773113, 2169028, 8861445 ####[facility] [address] [place] [address] Potassium [Moles/Vol] 3.6 mmol/L Normal 3.5-5.3 [facility] Comment on above: Performed By: #### 1 2501399, 3037222, 3009647, 7095902, 0559893, 4463074 ####[facility] [address] [place] [address] Sodium [Moles/Vol] 138 mmol/L Normal 135-145 [facility] Comment on above: Performed By: #### 1 4419143, 6124509, 2921912, 4244949, 2379352, 8271710 ####[facility] [address] [place] [address] XR Chest 2 Viewson XR Chest 2 Views Exam Date/Time: 12/31/2020 13:32 EST Reason for Exam: Pre Op Report IMPRESSION: NO RADIOGRAPHIC EVIDENCE OF ACTIVE DISEASE IN THE CHEST. CLINICAL INFORMATION: Pre Op COMPARISON: None available. FINDINGS: Two views of the chest were obtained. Heart and mediastinum appear normal. The lungs appear clear. Visualized bony thorax and remainder of the chest appears unremarkable, except for mild degenerative hypertrophic spurs from middle dorsal vertebral bodies. FINAL REPORT Dictated: 12/31/2020 2:31 pm Luke Boyd M.D. Signed (Electronic Signature): 12/31/2020 2:31 pm Signed by: Luke Boyd M.D. Transcribed by: EDNISE Technologist: KINA Car [facility] eGFRon 12-31-2020 GFR/1.73 sq M.predicted among blacks MDRD (S/P/Bld) [Vol rate/Area] mL/min/{1.73_m2} Normal >=59 [facility] Comment on above: Order Comment: Order added by Discern Expert. Result Comment: eGFR is race adjusted. AA=. Performed By: #### 1 1269716, 6126613, 8535263, 8839474, 7290665, 2735096 ####[facility] [address] [place] [address] GFR/1.73 sq M.predicted among non-blacks MDRD (S/P/Bld) [Vol rate/Area] mL/min/{1.73_m2} Normal >=59 [facility] Comment on above: Order Comment: Order added by Discern Expert. Result Comment: Repairer [employer] mahad kidney disease could be indicated at eGFR's of less than 60 mL/min/1.73m2. Kidney failure is indicated at less than 15 mL/min/1.73m2. Performed By: #### 1 3681856, 9914608, 8333933, 9031487, 8163094, 6015521 ####[facility] [address] [place] [address] Encounters Encounter Date Encounter Type Care Provider Facility Start: 04-19-2023 End: 04-19-2023 Emergency department patient visit Juanjo Mtz Facility:[facility] Start: 09-07-2022 End: 09-08-[address] ADOLFO MANCERA Facility:[facility] Start: 08-18-2022 End: 08-18-[address] ADOLFO MANCERA Facility:[facility] Start: 10-20-2019 End: 10-20-2019 Departed Referred Alice Solis -[facility]uan [facility] Start: 11-28-2018 End: 11-28-2018 Patient encounter procedure Alice Solis -[facility] [address] Payers Date Payer Category Payer Unknown [id number] 1970 Unknown [id number] 1958 Unknown [id number] Self-pay Self Pay [id number] Unknown Self Pay [id number] Unknown Self Pay [id number] Social History Date Type Detail Facility Start: 09-22-2019 Tobacco smoking stat [facility] Smoker (finding) [facility] Start: 1970 Sex Assigned At Female F [facility] Goals Date Patient Goal Desired Activity /State Clinical Note 06-28-2021 Note Date & Type Note Facility 06-28-2021 Note Echocardiology Procedure Exam Date/Time Accession # Ordering ECG Stress Exercise 06/22/2021 09:08 EDT [id number] IRMA CROWDER NP CPT code 13132 Reason for Exam (ECG Stress Exercise) R53.83 / R07.9 / E78.5 / R61 / F17.200 Report TREADMILL EXERCISE STRESS TEST 06/22/2021 PROCEDURE: Treadmill exercise stress test. INDICATION: Chest pain and fatigue. PROCEDURE DETAILS: The patient was stressed according to the Asif protocol. Exercised for 2 minutes 30 seconds achieving a heart rate of 150 which was 91% which was 87% maximal age predicted heart rate and 4.6 METS. The patient was short of breath with exertion. Baseline EKG was sinus rhythm with sinus arrhythmia and poor R wave progression. With exercise there was significant amount of artifact that prevented clearcut assessment of the ST segments. There was no obvious ST deviation. Recovery phase was unremarkable. CONCLUSIONS: Low functional capacity. Normal blood pressure response. Nondiagnostic exercise treadmill stress test due to significant EKG artifact. Consider alternate imaging modality if clinically indicated. FINAL REPORT Signed (Electronic Signature): 06/28/2021 1:38 pm Signed by: Dony Mora MD Transcribed by: maria dolores Technologist: CARRIE [facility] History and physical note 01-04-2021 Note Date & Type Note Facility 01-04-2021 Note [id number]#1.00CD:127 [facility] Advance Directives No Advanced Directives Records Found Advance Directive Response Recorded Date/ Time Advance Directives No December 03, 2017 10:50am Chief Complaint and Reason for Visit Chief Complaint Dysphonia Assessments No Assessments Information Available Family History No Family History Records Found Relationship Condition Age at Onset Recorded Date/T hiram Not Specified Malignant neoplasm of tongue Unknown Arthritis Unknown family member Cerebral aneurysm Unknown sister Migraine headache Unknown Summary Purpose Additional Source Comments INFORMATION SOURCE (unrecogn ized section and content) DATE CREATED AUTHOR 10/05/2021 [facility] DATE CREATED AUTHOR AUTHOR'S ORGANIZ ATION 04/15/2022 [facility] DATE CREATED AUTHOR AUTHOR'S ORGANIZ ATION 07/06/2022 [facility] d[facility] Special[facility] DATE CREATED AUTHOR AUTHOR'S ORGANIZ ATION 09/11/2022 [facility] DATE CREATED AUTHOR AUTHOR'S ORGANIZ ATION 04/19/2023 [facility] FOR RECORDS PERTAINING TO PATIENTS WHO ARE OR HAVE BEEN ENROLLED IN A CHEMICAL DEPENDENCY/SUBSTANCEABUSE PROGRAM, SOME INFORMATION MAY BE OMITTED. This clinical summary was aggregated from multiple sources. Caution should be exercised in using it in the provision of clinical care. This summary normalizes information from multiple sources, and as a consequence, information in this document may materially change the coding, format and clinical context of patient data. In addition, data may be omitted in some cases. CLINICAL DECISIONS SHOULD BE BASED ON THE PRIMARY CLINICAL RECORDS. [facility]. provides no warranty or guarantee of the accuracy or completeness of information in this document.
--- NOTE | 2023-11-02 13:30 | XR_ITS ---
[address] [address] Patient Name: MARGRET ENCINAS MRN: [id number] date: 1970 Sex: F Assigned Patient Location: [facility] Current Patient Location: [facility] Accession/Order Number: [id number] Exam Date: 11/02/2023 13:00 Report Date: 11/02/2023 13:53 At the request of: IRMA ALEX Procedure: XR DEXA axial skeleton EXAMINATION: XR DEXA axial skeleton HISTORY: Post Menopausal State Z78.0 COMPARISON: DEXA bone densitometry 09/02/2021 TECHNIQUE: Dual-energy X-ray absorptiometry (DXA) was performed. FINDINGS: SPINE ANALYSIS: Average bone mineral density is 1.325 g/cm2. T-score (standard deviation relative to young adult mean): 1.0 . +2.7% change since prior study. HIP ANALYSIS: Lowest bone mineral density is within the right femoral neck, 0.973 g/cm2. T-score (standard deviation relative to young adult mean): -0.5 . -3.6% change since prior study. XR/XR DEXA axial skeleton IMPRESSION: [employer] Organization Classification: Normal - Low Fracture Risk Electronically authenticated by: JUDITH LASSITER Date: 11/02/2023 13:53
--- NOTE | 2023-11-02 13:30 | MM_ITS ---
Patient Name: MARGRET ENCINAS MR#: [id number] : 1970 Exam Date: 11/02/2023 Ordering Doctor: AJIT Velasquez . RADIOLOGY REPORT PROCEDURE: MM TOMOSYNTHESIS SCREENING BI COMPARISON: MG MAMM SCREEN 3D ANA CAD, 09/02/2021. MG MAMM SCREEN ANA W CAD, 09/01/2020. MG MAMM ANA SCRN W CAD DIG, 01/27/2014. MG MAMM SCREEN 3D ANA CAD, 09/07/2022. INDICATIONS: Screening Calculator Name NCI Breast Cancer Risk Assessment Tool 5 Year Breast Cancer Risk 2.20% Lifetime Breast Cancer Risk 17.10% Personal Breast Cancer No Personal Ovarian Cancer No Treatments None Family Cancers Aunt-maternal with pancreatic cancer at age 62; Grandmother-maternal with pancreatic cancer at age ~85; Uncle-maternal with pancreatic/liver cancer at age ~65. LOCATION: [facility] BREAST COMPOSITION: Scattered areas fibroglandular density. FINDINGS: DIAGNOSTIC CATEGORY 2--BENIGN FINDING: RIGHT BREAST: No significant suspicious finding. Stable, chronic asymmetries. No significant change has occurred. LEFT BREAST: No significant suspicious finding. Scattered benign-appearing nodules are present. No significant change has occurred. RECOMMENDATIONS: ROUTINE MAMMOGRAM AND CLINICAL EVALUATION IN 12 MONTHS. PLEASE NOTE: A NORMAL MAMMOGRAM DOES NOT EXCLUDE THE POSSIBILITY OF BREAST CANCER. A CLINICALLY SUSPICIOUS PALPABLE LUMP SHOULD BE BIOPSIED. Dictated by: Thompson Martin M.D. on 11/02/2023 at 14:33 Approved by: Thompson Martin M.D. on 11/02/2023 at 14:38
== END 2023-11-02 12:52 | disposition home or self-care (01) ==
LOC: MAMMO 12:51
PROVIDERS: Visit Provider Physician Assistant
DX: Z12.31 Encounter for screening mammogram for malignant neoplasm of breast (principal); Z78.0 Asymptomatic menopausal state; Z80.8 Family history of malignant neoplasm of other organs or systems
CPT/HCPCS: 77063; 77067; 77080

== ENCOUNTER 2024-10-23 19:03 | Outpatient (REF) | payer BC, SELFPAY ==
--- OUTSIDE RECORDS SUMMARY | 2024-10-23 19:07 | XMS_ITS | CCD ---
Author Organization [facility] Care Team Providers Care Keypuncher Name Role Phone Jus Solis Primary Care Provider UnavailRuddy Wilson Attending Provider Unavailable KARASIK, DR MATA Admitting Unavailable KARASIK, DR MATA Attending Unavailable SOLIS, DR JENKINS Primary Care Unavailable KARASIK, DR MATA Consulting Unavailable KARASIK, DR MATA Admitting Unavailable KARASIK, DR MATA Attending Unavailable KIEPERT, RAMONA Primary Care Unavailable KARASIK, DR MATA Consulting Unavailable WEST, DR GALE Cm Consulting Unavailable Keister, Juanjo A Attending Unavailable Keister, Juanjo A Admitting Unavailable Solis, Jus Primary Care Unavailable Kiepert RN CORRECTIONS, Ramona A Unavailable Jus Solis MD Primary Care Provider Warchol RN CORRECTIONS, Serena Unavailable Lause RN CORRECTIONS, Sweta R Unavailable Lause RN CORRECTIONS, Sweta R Unavailable Warchol RN CORRECTIONS, Serena Unavailable KARINA ANNE Attending Unavailable WARCHOL, SERENA Attending Unavailable GUNDLACH, JUAN PABLO D Attending Unavailable WARCHOL, SERENA Referring Unavailable WARCHOL, SERENA Referring Unavailable WENGERD, EDDIE Attending Unavailable WARCHOL, SERENA Referring Unavailable GUNDLACH, JUAN PABLO D Attending Unavailable WARCHOL, SERENA Referring Unavailable ABI, SERENA Attending Unavailable WENGERD, EDDIE Attending Unavailable WARCHOL, SERENA Referring Unavailable WENGERD, EDDIE Attending Unavailable WARCHOL, SERENA Referring Unavailable TATBONIFACIO JIMENEZ Attending Unavailable WARCHOL, SERENA Referring Unavailable LAUSE, SWETA R Attending Unavailable LAUSE, SWETA R Attending Unavailable Unavailable Unavailable Unavailable Allergies Allergy Classification Reported Allergen(s) Allergy Type Date of Onset Reaction(s) Facility (1 source) Iodine (And Iodine Containting Drugs) Drug allergy (disorder) 5 [facility] (1 source) Iodine Drug Allergy 1 Shortness of breath [facility] (1 source) Iodinated Contrast Media Drug Allergy 2 Palpitations, Unknown [facility] Work Phone: (1 source) Other Propensity to adverse reactions 1 Palpitations [facility] Medications Current Medications Medication Drug Class(es) Dates Sig (Normalized) Sig (Original) 200 actuat albuterol 0.09 mg/actuat dry powder inhaler (3 sources) beta2-Adrenergic Agonist Start: 04-19-2023 End: 12-07-2023 take 2 puff(s) by inhalation every four hours for wheezing albuterol (ProAir RespiClick) 90 mcg/act breath-activated inhaler Indications: Shortness of breath Inhale 2 puffs every 4 (four) hours if needed for wheezing or shortness of breath. 1 each 0 04/19/2023 12/07/2023 Discontinued (Therapy completed) aspirin 81 mg delayed release oral tablet (9 sources) Platelet Aggregation Inhibitor, Nonsteroidal Anti-inflammatory Drug Start: 09-22-2019 take 81 mg by mouth once daily Aspirin Active 81 MG Oral Daily September 22, 2019 3:02pm aspirin (Vazalor e) 81 MG capsule Take by mouth. Active cetirizine hydrochloride 10 mg oral tablet (8 sources) Histamine-1 Receptor Antagonist Start: 11-05-2016 cetirizine (ZyrTEC ALLERGY) 10 MG tablet 11/05/2016 Active cholecalciferol 0.05 mg oral capsule (2 sources) Vitamin D take 1 capsule by mouth in the morning cholecalciferol (Vitamin D-3) 50 MCG (2000 UT) capsule Take 2,000 Units by mouth in the morning. 0 Active ergocalciferol 1.25 mg oral capsule (11 sources) Provitamin D2 Compound Start: 06-06-2024 End: 12-03-2024 take 1 capsule by mouth every week ergocalciferol (Vitamin D2) 1.25 MG (41387 UT) capsule Indications: Vitamin D deficiency Take 1 capsule (1.25 mg) by mouth 1 (one) time per week 4 capsule 5 06/06/2024 12/03/2024 Active Start: 10-04-2023 End: 06-04-2024 take 1 capsule by mouth every week ergocalciferol (Vitamin D2) 1.25 MG (31342 UT) capsule Indications: Vitamin D deficiency Take 1 capsule (1.25 mg) by mouth 1 (one) time per week 4 capsule 5 12/07/2023 06/04/2024 Active Start: 09-22-2019 take 56854 [IU] by m outh every week Ergocalciferol (Vitamin D2) Active 46552 UNIT Oral every week September 22, 2019 3:02pm esomeprazole 20 mg delayed release oral capsule (9 sources) Proton Pump Inhibitor Start: 09-22-2019 take 40 mg by mouth once daily Esomeprazole Magnesium Active 40 MG Oral Daily September 22, 2019 3:02pm esomeprazole (Ne xIUM) 20 MG packet Active eszopiclone 1 mg oral tablet (3 sources) Start: 08-18-2024 End: 11-16-2024 eszopiclone (Lunesta) 1 MG tablet Indications: Insomnia, unspecified type Take 1 tablet (1 mg) by mouth as needed at bedtime for sleep Take immediately before bedtime 30 tablet 2 08/18/2024 11/16/2024 Active fenofibrate 160 mg oral tablet (11 sources) Peroxisome Proliferator Receptor alpha Agonist Start: 06-06-2024 End: 12-03-2024 take 1 tablet by mouth once daily fenofibrate (Triglide) 160 MG tablet Indications: Elevated triglycerides with high cholesterol (CMS/HCC) Take 1 tablet (160 mg) by mouth Daily 90 tablet 1 06/06/2024 12/03/2024 Active Start: 09-22-2019 End: 06-04-2024 take 1 tablet by mouth in the morning fenofibrate (Tricor) 145 MG tablet Indications: Elevated triglycerides with high cholesterol (CMS/HCC) Take 1 tablet (145 mg) by mouth in the morning. 90 tablet 1 12/07/2023 06/04/2024 Active fluconazole 200 mg oral tablet (2 sources) Azole Antifungal Start: 12-07-2023 End: 12-14-2023 take 1 tablet by mouth in the morning fluconazole (Diflucan) 200 MG tablet Indications: Vaginal candidiasis Take 1 tablet (200 mg) by mouth in the morning for 7 days. 7 tablet 0 12/07/2023 12/14/2023 Active fluticasone propionate 0.05 mg/actuat metered dose nasal spray (13 sources) Corticosteroid Start: 04-19-2023 End: 12-21-2023 take 1 spray(s) nasal route in the morning fluticasone (Flonase Allergy Relief) 50 MCG/ACT nasal spray Indications: Non-recurrent acute serous otitis media of both ears Administer 1 spray into each nostril in the morning and 1 spray before bedtime. Do all this for 14 days. 12/07/2023 Active Start: 01-04-2023 End: 12-07-2023 fluticasone (Flonase Allergy Relief) 50 MCG/ACT nasal spray 1 (one) time each day at the same time. 0 01/04/2023 12/07/2023 Discontinued (Reorder) Start: 09-22-2019 Fluticasone Pr opionate Active 2 SPRAY Intranasal Daily September 22, 2019 3:17pm hydrOXYzine hydrochloride 25 mg oral tablet (5 sources) Antihistamine Start: 08-21-2024 End: 11-19-2024 hydrOXYzine HCl (Atarax) 25 MG tablet Indications: Insomnia, unspecified type Take 1 tablet (25 mg) by mouth as needed at bedtime for itching 30 tablet 2 08/21/2024 11/19/2024 Active Start: 06-06-2024 End: 09-04-2024 hydrOXYzine HCl (Atarax) 25 MG tablet Indications: Insomnia, unspecified type Take 0.5 tablets (12.5 mg) by mouth as needed at bedtime for itching 15 tablet 2 06/06/2024 08/18/2024 Discontinued (Therapy completed) levoFLOXacin 750 mg oral tablet (2 sources) Quinolone Antimicrobial Start: 12-07-2023 End: 12-17-2023 take 1 tablet by mouth in the morning levoFLOXacin (Levaquin) 750 MG tablet Indications: Other chronic sinusitis Take 1 tablet (750 mg) by mouth in the morning for 10 days. 10 tablet 0 12/07/2023 12/17/2023 Active metFORMIN hydrochloride 500 mg oral tablet (3 sources) Biguanide Start: 08-18-2024 End: 08-18-2025 take 1 tablet by mouth at mealtime metFORMIN (Glucophage) 500 MG tablet Indications: Elevated fasting glucose Take 1 tablet (500 mg) by mouth in the morning. Take with meals. 30 tablet 11 08/18/2024 08/18/2025 Active methylPREDNISolone (3 sources) Corticosteroid Start: 11-18-2023 End: 12-07-2023 methylPREDNISolone (Medrol Dospak) 4 MG tablets Indications: Acute maxillary sinusitis, recurrence not specified Follow schedule on package instructions 21 tablet 0 11/18/2023 12/07/2023 Discontinued (Therapy completed) Start: 11-18-2023 methylPREDNISo lone (Medrol Dospak) 4 MG tablets Indications: Acute maxillary sinusitis, recurrence not specified Follow schedule on package instructions 21 tablet 0 11/18/2023 Active montelukast 10 mg oral tablet (3 sources) Leukotriene Receptor Antagonist End: 12-07-2023 montelukast (Singulair) 10 MG tablet Take by mouth 0 12/07/2023 Discontinued (Therapy completed) Multiple Vitamin (Multi Vitamin Daily) tablet (3 sources) Multiple Vitamin (Multi Vitamin Daily) tablet 1 (one) time each day at the same time. 0 Active Multiple Vitamin (Multi-Vitamin) tablet (3 sources) End: 12-07-2023 Multiple Vitamin (Multi-Vitamin) tablet Take by mouth. 0 12/07/2023 Discontinued (Therapy completed) Multiple Vitamin (Multi-Vitamin) tablet Take by mouth. 0 Active Multivitamin preparation (1 source) Start: 09-22-2019 take 1 tablet by mouth once daily in the morning Multivitamin Active 1 TAB Oral Every morning September 22, 2019 3:02pm predniSONE 20 mg oral tablet (3 sources) Start: 04-19-2023 End: 12-07-2023 predniSONE (Deltasone) 20 MG tablet Indications: Upper respiratory tract infection, unspecified type Take two tablets (40 mg) daily for five days, then take one tablet (20 mg) daily for five days. Take with food. 15 tablet 0 04/19/2023 12/07/2023 Discontinued (Therapy completed) 10 actuat tiotropium 0.0025 mg/actuat inhalation spray (11 sources) Anticholinergic Start: 06-06-2024 End: 06-06-2025 take 2 puff(s) by inhalation once daily tiotropium (Spiriva Respimat) 2.5 MCG/ACT inhaler Indications: Chronic obstructive pulmonary disease, unspecified COPD type (CMS/HCC) Inhale 2 puffs Daily 12 g 3 06/06/2024 06/06/2025 Active Start: 12-07-2023 End: 06-04-2024 take 2 puff(s) by inhalation in the morning tiotropium (Spiriva Respimat) 2.5 MCG/ACT inhaler Indications: Chronic obstructive pulmonary disease, unspecified COPD type (CMS/HCC) Inhale 2 puffs in the morning. 12 g 1 12/07/2023 06/04/2024 Active Start: 09-22-2019 take 1 puff(s) by in halation once daily in the morning Tiotropium [place] Active 2 PUFF Inhalation Every morning September 22, 2019 3:02pm End: 12-07-2023 Spiriva Respimat 2.5 MCG/ACT inhaler varenicline 1 mg oral tablet (3 sources) Partial Cholinergic Nicotinic Agonist Start: 06-04-2023 End: 12-07-2023 take 1 tablet by mouth in the morning varenicline (Chantix) 1 MG tablet Indications: Cigarette nicotine dependence with withdrawal Take 1 tablet (1 mg) by mouth in the morning and 1 tablet (1 mg) before bedtime. Take with full glass of water.. 60 tablet 0 06/04/2023 12/07/2023 Discontinued (Therapy completed) vitamin b12 1 mg oral capsule (3 sources) Vitamin B12 Start: 06-07-2022 End: 12-07-2023 Cyanocobalamin 1000 MCG capsule 1 (one) time each day at the same time. 0 06/07/2022 12/07/2023 Discontinued (Therapy completed) Completed/Discontinued Medications Medication Drug Class(es) Dates Sig (Normalized) Sig (Original) lincomycin 300 mg/ml injectable solution (3 sources) Start: 04-19-2023 End: 12-07-2023 lincomycin (Lincocin) injection 300 mg 1 ml triamcinolone acetonide 40 mg/ml prefilled syringe (7 sources) Corticosteroid Start: 04-19-2023 End: 08-18-2024 triamcinolone acetonide (Kenalog-40) injection 40 mg Problems Active Problems Problem Classification Problem Date Documented Date Episodic/Chronic Chronic obstructive pulmonary disease and bronchiectasis (18 sources) Acute exacerbation of chronic obstructive airways disease; Translations: [Chronic obstructive pulmonary disease with (acute) exacerbation] Onset: 0 11-12-2023 Chronic Diabetes mellitus without complication (2 sources) Hyperglycemia; Translations: [Impaired fasting glucose] 08-18-2024 Episodic Disorders of lipid metabolism (18 sources) Mixed hypercholesterolemia and hypertriglyceridemia; Translations: [Mixed hyperlipidemia] Onset: 6 11-12-2023 Chronic Diverticulosis and diverticulitis (16 sources) Diverticulosis of colon; Translations: [Diverticulosis of large intestine without perforation or abscess without bleeding] Onset: 7 11-12-2023 Chronic Esophageal disorders (16 sources) Carvajal's esophagus; Translations: [Carvajal's esophagus without dysplasia] Onset: 6 11-12-2023 Chronic Immunizations and screening for infectious disease (1 source) Encounter for screening for human papillomavirus (HPV); Translations: [ENC SCREENING HUMAN PAPILLOMAVIRUS] Onset: 2 Episodic Mycoses (2 sources) Candidiasis of vagina; Translations: [Vaginal candidiasis] 12-07-2023 Episodic Nutritional deficiencies (10 sources) Vitamin D deficiency; Translations: [Vitamin D deficiency, unspecified] Onset: 9 11-12-2023 Chronic Osteoarthritis (8 sources) Arthritis of finger of right hand; Translations: [Primary osteoarthritis, right hand] Onset: 1 11-12-2023 Chronic Other liver diseases (8 sources) Steatosis of liver; Translations: [Fatty (change of) liver, not elsewhere classified] Onset: 1 11-12-2023 Chronic Other lower respiratory disease (2 sources) Snoring; Translations: [Snoring] 08-18-2024 Episodic Other nervous system disorders (3 sources) Carpal tunnel syndrome; Translations: [Carpal tunnel syndrome, left upper limb] Onset: 4 11-12-2023 Chronic Other nervous system disorders (5 sources) Carpal tunnel syndrome of left wrist; Translations: [Carpal tunnel syndrome, left upper limb] Onset: 4 11-12-2023 Chronic Other nutritional; endocrine; and metabolic disorders (8 sources) Obese class II; Translations: [Obesity, unspecified] Onset: 1 11-12-2023 Chronic Other nutritional; endocrine; and metabolic disorders (8 sources) Morbid obesity; Translations: [Morbid (severe) obesity due to excess calories] Onset: 1 11-12-2023 Chronic Other upper respiratory disease (8 sources) Allergic rhinitis due to pollen; Translations: [Allergic rhinitis due to pollen] Onset: 7 11-12-2023 Chronic Other upper respiratory infections (10 sources) Chronic sinusitis; Translations: [Other chronic sinusitis] Onset: 9 11-12-2023 Chronic Otitis media and related conditions (2 sources) Acute non-suppurative otitis media - serous; Translations: [Acute serous otitis media, bilateral] 12-07-2023 Episodic Residual codes; unclassified (2 sources) Hypersomnia; Translations: [Hypersomnia, unspecified] 08-18-2024 Chronic Residual codes; unclassified (1 source) Asymptomatic menopausal state; Translations: [ASYMPTOMATIC MENOPAUSAL STATE] Onset: 2 Episodic Residual codes; unclassified (1 source) Family history of malignant neoplasm of digestive organs; Translations: [[facility] NEOPLASM DIGESTIV ORGN] Onset: 2 Episodic Residual codes; unclassified (1 source) Family history of malignant neoplasm of other organs or systems; Translations: [[facility] NEOPLASM OTH ORGN/SYS] Onset: 2 Episodic Residual codes; unclassified (11 sources) Insomnia; Translations: [Insomnia, unspecified] Onset: 6 11-12-2023 Episodic Residual codes; unclassified (1 source) Flushing; Translations: [Flushing] 08-21-2024 Episodic Substance-related disorders (8 sources) Smoker; Translations: [Nicotine dependence, unspecified, uncomplicated] Onset: 1 11-12-2023 Chronic Past or Other Problems Problem Classification Problem Date Documented Da te Episodic/Chronic Cardiac dysrhythmias (8 sources) Palpitations; Translations: [Palpitations] Onset: 11-24-2013 11-12-2023 Episodic Conditions associated with dizziness or vertigo (8 sources) Dizzy spells; Translations: [Dizziness and giddiness] Onset: 11-12-2023 11-12-2023 Episodic Deficiency and other anemia (8 sources) Iron deficiency anemia; Translations: [Iron deficiency anemia, unspecified] Onset: 11-12-2023 11-12-2023 Episodic Deficiency and other anemia (16 sources) Pernicious anemia; Translations: [Vitamin B12 deficiency anemia due to intrinsic factor deficiency] Onset: 12-06-2018 11-12-2023 Episodic Disorders of teeth and jaw (8 sources) Jaw pain; Translations: [Jaw pain] Onset: 11-12-2023 11-12-2023 Episodic Headache; including migraine (8 sources) Headache; Translations: [Headache] Onset: 11-12-2023 11-12-2023 Episodic Malaise and fatigue (8 sources) Fatigue; Translations: [Other fatigue] Onset: 11-12-2023 11-12-2023 Episodic Nonspecific chest pain (16 sources) Chest pain; Translations: [Chest pain, unspecified] Onset: 11-24-2013 11-12-2023 Episodic Other ear and sense organ disorders (8 sources) Pain of ear structure; Translations: [Otalgia, unspecified ear] Onset: 11-12-2023 11-12-2023 Episodic Other lower respiratory disease (8 sources) Cough; Translations: [Cough] Onset: 11-12-2023 11-12-2023 Episodic Other nervous system disorders (8 sources) Paresthesia of right upper limb; Translations: [Paresthesia of skin] Onset: 11-12-2023 11-12-2023 Episodic Other screening for suspected conditions (not mental disorders or infectious disease) (16 sources) Encounter for screening mammogram for malignant neoplasm of breast; Translations: [Encounter for screening for malignant neoplasm of cervix] Onset: 12-27-2010 Episodic Other upper respiratory disease (8 sources) Hoarse; Translations: [Dysphonia] Onset: 11-03-2019 11-12-2023 Episodic Other upper respiratory disease (8 sources) Pain in face; Translations: [Other specified disorders of nose and nasal sinuses] Onset: 11-12-2023 11-12-2023 Episodic Other upper respiratory disease (8 sources) Polyp of vocal cord ; Translations: [Polyp of vocal cord and larynx] Onset: 07-27-2020 11-12-2023 Episodic Other upper respiratory infections (8 sources) Sore throat symptom; Translations: [Acute pharyngitis, unspecified] Onset: 11-12-2023 11-12-2023 Episodic Residual codes; unclassified (8 sources) Tobacco user; Translations: [Tobacco use] Onset: 08-13-2019 11-12-2023 Episodic Spondylosis; intervertebral disc disorders; other back problems (8 sources) Neck pain; Translations: [Cervicalgia] Onset: 11-12-2023 11-12-2023 Episodic Results Test Name Value Interpretation Reference Range Facility 25-hydroxyvitamin D3 [Mass/V ol]on 08-12-2024 25-hydroxyvitamin D [Mass/Vol] 43.5 ng/mL 30.0 - 100.0 ng/mL [facility] Comment on above: Vitamin D deficiency has been defined by the [place] of [employer] and an Endocrine Society practice guideline as a level of serum 25-OH vitamin D less than 20 ng/mL (1,2). The Endocrine Society went on to further define vitamin D insufficiency as a level between 21 and 29 ng/mL (2). 1. IOM ([place] of [employer]). 2010. Dietary reference intakes for calcium and D. [place]: The National Academies Press. 2. Lowell MF, Wilfredo PISANO, Kathy RAND, et al. Evaluation, treatment, and prevention of vitamin D deficiency: an Endocrine Society clinical practice guideline. JCEM. 2010; 96(7):1911-30. CBC W Auto Differential pane l (Bld)on 08-12-2024 Basophils (Bld) [#/Vol] 0.0 10*3/uL [facility] Basophils/100 WBC (Bld) 1 % Not Estab. [facility] Eosinophils (Bld) [#/Vol] 0.4 10*3/uL [facility] Eosinophils/100 WBC (Bld) 7 % Not Estab. [facility] Erythrocyte distribution width (RBC) [Ratio] 11.5 % Low 11.7 - 15.4 % [facility] Hematocrit (Bld) [Volume fraction] 42.1 % 34.0 - 46.6 % [facility] Hemoglobin (Bld) [Mass/Vol] 13.7 g/dL 11.1 - 15.9 g/dL [facility] Immature granulocytes (Bld) [#/Vol] 0.0 10*3/uL [facility] Immature granulocytes/100 WBC (Bld) 0 % Not Estab. [facility] Lymphocytes (Bld) [#/Vol] 2.4 10*3/uL [facility] Lymphocytes/100 WBC (Bld) 42 % Not Estab. [facility] MCH (RBC) [Entitic mass] 31.0 pg 26.6 - 33.0 pg [facility] MCHC (RBC) [Mass/Vol] 32.5 g/dL 31.5 - 35.7 g/dL [facility] MCV (RBC) [Entitic vol] 95 fL 79 - 97 fL [facility] Monocytes (Bld) [#/Vol] 0.5 10*3/uL [facility] Monocytes/100 WBC (Bld) 10 % Not Estab. [facility] Neutrophils (Bld) [#/Vol] 2.2 10*3/uL [facility] Neutrophils/100 WBC (Bld) 40 % Not Estab. [facility] Platelets (Bld) [#/Vol] 361 10*3/uL [facility] RBC (Bld) [#/Vol] 4.42 10*6/uL [facility] WBC (Bld) [#/Vol] 5.6 10*3/uL [facility] pane nadine 08-12-2024 Albumin [Mass/Vol] 4.4 g/dL 3.8 - 4.9 g/dL [facility] ALP [Catalytic activity/Vol] 57 U/L [facility] ALT [Catalytic activity/Vol] 34 U/L High [facility] AST [Catalytic activity/Vol] 25 U/L [facility] Bilirubin [Mass/Vol] 0.3 mg/dL 0.0 - 1.2 mg/dL [facility] Calcium [Mass/Vol] 9.9 mg/dL 8.7 - 10. 2 mg/dL [facility] Chloride [Moles/Vol] 104 mmol/L 96 - 106 mmol/L [facility] CO2 [Moles/Vol] 24 mmol/L 20 - 29 mmol/L [facility] Creatinine [Mass/Vol] 0.69 mg/dL 0.57 - 1.00 mg/dL [facility] GFR/1.73 sq M.predicted among non-blacks MDRD (S/P/Bld) [Vol rate/Area] 104 mL/min/{1.73_m2} 59 - PINF mL/min/1.73 [facility] Globulin (S) [Mass/Vol] 2.6 g/dL 1.5 - 4.5 g/dL [facility] Glucose [Mass/Vol] 104 mg/dL High 70 - 99 mg/dL [facility] Potassium [Moles/Vol] 4.1 mmol/L 3.5 - 5.2 mmol/L [facility] Protein [Mass/Vol] 7.0 g/dL 6.0 - 8.5 g/dL [facility] Sodium [Moles/Vol] 141 mmol/L 134 - 144 mmol/L [facility] Urea nitrogen [Mass/Vol] 18 mg/dL 6 - 24 mg/dL [facility] Urea nitrogen/Creatinine [Mass ratio] 26 mg/mg High 9 - 23 [facility] Iron and Iron binding capaci ty panelon 08-12-2024 Iron [Mass/Vol] 90 ug/dL 27 - 159 ug/dL [facility] Iron binding capacity [Mass/Vol] 368 ug/dL 250 - 450 ug/dL [facility] Iron binding capacity.unsaturate d [Mass/Vol] 278 ug/dL 131 - 425 ug/dL [facility] Iron saturation [Mass fraction] 24 % 15 - 55 % [facility] Lipid 1996 panelon Cholesterol [Mass/Vol] 202 mg/dL High 100 - 199 mg/dL [facility] Cholesterol in HDL [Mass/Vol] 44 mg/dL 39 - PINF mg/dL [facility] Cholesterol in LDL [Mass/Vol] 125 mg/dL High 0 - 99 mg/dL [facility] Cholesterol in VLDL [Mass/Vol] 33 mg/dL 5 - 40 mg/dL [facility] Triglyceride [Mass/Vol] 189 mg/dL High 0 - 149 mg/dL [facility] No Panel Informationon 08-12 Interpretation and review of laboratory results Abnormal [facility] Per[facility] at: - Lab[address] [id number] Residential Recycle Driver: Rick Eddy PhD, Phone: [phone] [facility] Specimen Status Reporton Clindamycin Disk diffusion (KB) [Susc] Comment [facility] Comment on above: Greg Arevalo CMP14 D efault Ambig Abbrev CMP14 Default A hand-written panel/profile was received from your office. In accordance with the [facility] Ambiguous Test Code Policy dated May 2003, we have completed your order by using the closest currently or formerly recognized AMA panel. We have assigned Comprehensive Metabolic Panel (14), Test Code #[id number] to this request. If this is not the testing you wished to receive on this specimen, please contact the [facility] Client Inquiry/Technical Services Department to clarify the test order. We appreciate your business. Amboscar Abbrev LP Default Ambig Abbrev LP Default A hand-written panel/profile was received from your office. In accordance with the [facility] Ambiguous Test Code Policy dated May 2003, we have completed your order by using the closest currently or formerly recognized AMA panel. We have assigned Lipid Panel, Test Code #137774 to this request. If this is not the testing you wished to receive on this specimen, please contact the [employer] Client Inquiry/Technical Services Department to clarify the test order. We appreciate your business. Vitamin B12on 08-12-2024 Cobalamin (Vitamin B12) [Mass/Vol] 1013 pg/mL 232 - 1245 pg/mL [facility] US LIVERon 02-05-2024 US LIVER US LIVER History: Elevated LFTs. Technique: Sonography of the right upper quadrant was performed. Comparison: None. Result: Pancreas: Not well visualized. Liver: Diffusely increased echogenicity with decreased through-transmission, suggestive of steatosis. Enlarged, measuring around 19.7 cm in length. Gallbladder: Normal caliber without cholelithiasis, sludge, wall thickening, or pericholecystic fluid. Biliary Ducts: No intrahepatic or extrahepatic bile duct dilation. CBD measures 0.4 cm. Right Kidney: Imaged portions unremarkable. Ascites: None. IMPRESSION: Impression: Hepatic steatosis. ELECTRONICALLY SIGNED BY: Castro Ellison MD Normal Not Available COVID-19 / Flu A/B / RSV PCR on 04-19-2023 SARS-CoV-2 (COVID-19) RNA LEIZA+probe Ql (Unsp spec) COVID-19 Cepheid Result Negative [...] or Cepheid Disclaimer revoked sooner. PERFORMED BY: [facility] [address] [place] [address] PATHOLOGIST FILLER SPREADER SUSANNA SIMS M.D. Normal [facility] Comment on above: Performed By: #### C OVID19 FLU RSV, CEPHEID NEG, QS #### [facility] [address] [place], [place] [address] Cepheid COVID PCR Negativeon 04-19-2023 SARS-CoV-2 (COVID-19) RNA ELIZA+probe Ql (Unsp spec) Negative Normal Negative [facility] Comment on above: Result Comment: This is a duplicate Cepheid Xpert Xpress CoV-2/Flu/RSV Plus RNA by RT-PCR result to be used for statistical tracking purpose only. PERFORMED BY: [place] [address] PATHOLOGIST FILLER SPREADER SUSANNA SIMS M.D. Performed By: #### C OVID19 FLU RSV, CEPHEID NEG, QS #### [facility] [address] [place] [address] ECG 12 lead ECGon 04-19-2023 ECG 12 lead ECG [facility] [place] [address] [place] [address] Electrocardiograph Report Signed Patient: Johanna Encinas MR#: [id number] : 1970 Acct:[id number] Age/Sex: 52 / F ADM Date: 04/19/23 Loc: ER Room: Type: [facility] ER Attending Dr: Ordering Provider: Juanjo Mtz [...] sinus rhythm Confirmed by Juanjo MTZ DO ([id number]) on 04/19/2023 9:18:46 AM Referred By: Electronically Signed By:Juanjo MTZ DO Transcribed By: MUS Signed By Juanjo Mtz DO 0 04/19/23 0918 Normal [facility] Monoteston 04-19-2023 Monotest Negative Normal Negative [facility] Comment on above: Result Comment: PERF ORMED BY: [address] [address] PATHOLOGIST FILLER SPREADER SUSANNA SIMS M.D. Performed By: #### M ONOTEST #### [facility] [address] [place] [address] [place] Quick Strepon 04-19-2023 Quick Strep Streptococcus pyogen es Ag [Presence] in Throat by Rapid immunoassay Negative for Group A Strep Antigen Note 1 NOTE 2 Results are those of a screening test. NOTE 3 If clinically indicated please order a culture. NOTE 4 NOTE 5 Reference range = Negative PERFORMED BY: [place] [address] PATHOLOGIST FILLER SPREADER SUSANNA SIMS M.D. [facility] Comment on above: Performed By: #### C OVID19 FLU RSV, CEPHEID NEG, QS #### [address] MG MAMM SCREEN 3D ANA CADon 09-07-2022 MG MAMM SCREEN 3D ANA CAD Patient: JOHANNA ENCINAS Exam Date: 09/07/2022 : 1970 Gender:F Ordering : DR ADOLFO MANCERA . Admission #: [id number] Family : Order #: [id number] CLICK HERE TO VIEW EXAM RADIOLOGY REPORT [...] pancreatic/liver cancer at age 66. LOCATION: [facility] BREAST COMPOSITION: Scattered areas fibroglandular density. FINDINGS: [...] Brooks MD on 09/08/2022 at 07:12 Normal [facility] PAP ACOG PANEL 2: 30 to 65on 08-24-2022 . . Normal [facility] Comment on above: Result Comment: Perf ormed at: WB Performed By: #### 4 [id number] #### [facility] [address] [place] [address] Dr. Acosta Fuller Age Gdln ACOG Testing 30-65 Normal [facility] Comment on above: Performed By: #### 4 [id number] #### [facility] [address] [place] [address] Dr. Acosta Fuller DIAGNOSIS: Comment Normal [facility] Comment on above: Result Comment: NEGA TIVE FOR INTRAEPITHELIAL LESION OR MALIGNANCY. Performed at: WB Performed By: #### 4 [id number] #### [facility] [address] [place] [address] Dr. Acosta Fuller HPV Aptima Negative Normal Negative [facility] Comment on above: Result Comment: This nucleic acid amplification test detects fourteen high-risk HPV types (16,18,31,33,35,39,45,51,52,56,58,59,66,68) without differentiation. Performed at: =G Performed By: #### 4 [id number] #### [facility] [address] [address] [address] Acosta Fuller Methodology: CTIM Normal [facility] Comment on above: Result Comment: The [employer]in [employer](R) Route [employer] was unable to read this specimen. Therefore a manual review was performed. Performed at: WB Performed By: #### 4 [id number] #### [facility] [address] [place] [address] Dr. Acosta Fuller Note: Comment Normal [facility] Comment on above: Result Comment: The Pap smear is a screening test designed to aid in the detection of premalignant and malignant conditions of the uterine cervix. It is not a diagnostic procedure and should not be used as the sole means of detecting cervical cancer. Both false-positive and false-negative reports do occur. . Performed at: WB Performed By: #### 4 [id number] #### [facility] [address] [address] [address] Acosta Fuller Performed by: Comment Normal [facility] Comment on above: Result Comment: Akin Blackwell, Counter Maker (ASCP) Performed at: WB Performed By: #### 4 [id number] #### [facility] [address] [address] [address] Acosta Fuller Specimen adequacy: Comment Normal [facility] Comment on above: Result Comment: Sati sfactory for evaluation. No endocervical component is identified. Performed at: WB Performed By: #### 4 [id number] #### [facility] [address] [place] [address] Dr. Acosta Fuller MRI Upper Arm/Humerus w/o [...] fracture or suspicious marrow replacing process. Large vbiaq-hs-shea imaging of the elbow grossly unremarkable. Muscle bulk and signal intensity within normal limits. Visualized tendons intact. No other significant abnormality. IMPRESSION: No suspicious mass or lesion at the area of concern. In correlation with the recent ultrasound, the lump either represents small benign unencapsulated lipoma or area of focal fat deposition. Report reported and signed by Castro Ellison on 07/06/2022 0849 Normal [facility] Gin Operator US Upper Extremity, Non-Vasc ular, Righton 06-09-2022 [...] by Ervin Lagunas on 06/09/2022 1330 Normal [facility] Lab - Toxicology Resultson 0 04-14-2022 Lab - Toxicology Results [id number]#[id number] 0OTGTIFF Normal [facility] Drug Test Panel 10 022 Drug Screen Complete Collected Normal [facility] Comment on above: Performed By: #### 2 [id number] #### [facility] (DEFAULT) [address] [place] [address] Coding Summary.on 10-04-2021 Coding Summary. CD:[id number] Gh 0bWw+PGhlYWQ+AR7UFJKhE 21tqCKegF5OI9mYMQ9CTSF HOHRVIJ0XYQ5veMC1IBrzW 2VybiAv PezpsBJhJY31ENl4TVJ0zJ mqLTdskC4apYMoM1m3SvYu HN09mI77BUytWUUaKeS6Vz ZpbjsgbWFy O6dxGjZshQOwLbl+PHRhYm xlIHdpZHRoPScxMDAlJyBz pZmyUP5aBc7qBEQhEPImrW xhcHNlOiBj o6ijXAHjKJdoXL8omMvbY0 KnnPK0YVKcf3g2Nb36sPX+ DAUaDZF2mAkbHImua692Jv Tle5azSOO9 uOQpSPzeEYH5K71jb1W0EW VpSCZiCFD7dSP3lZ7wkHdk micsR3EbfPPvTsU3OPS4yO RgeE4weJvm dxrjtD2zIxj+R86MZJ1SUS KIIH2AZtr3Q4AhZimozZL+ OI00IPNtVV68pPCpdNIvd4 sctDt3MoNq RNNoCHZ4lUhsFJkpv5JpUQ WuI99eiMFfm5G2PAXumFmt vZLnUnObeME2nK1rBEdewy vee7knyoat Ykfvk7otpk24tI62G30cPY pzNEJvVCQ8DRItGAIvpCul zu6mxN8ySl6+LSgwo4pqn5 oabOm9UtCk DEDupyUofDwkLEW5k4MmBo 91F0EbmWlro6DbGsr7uz67 vPQir3S5gMD0BNjtRZVhfO 7fBTvqQwM1 ORCcAgEqsF51uATuYPxdYm 9akUsqaIxyIO6kTSTjqvne GMXruR9yVNIzdAClsFlfPU 4wNTBpbjtm g529NzOzUKS7ZZUiwFXxR6 CkfG6tGoFrUEWyPECxI7Pt yZGvSUqoW446CFsgVhC2BL TiegOtE4Zt KZZmcTefDxA4i3R4Jc1Wp9 ClrgjkSYX8WJrhONKnTqZh SvMtKjX5Z7RuUqk0MXYgzO zyDM5kH6Bm ESUpobhvwtpetSY0HRVyKK NucZ56rXWtPLmdKs0ox3P5 j650DXFnARDgbT57Ke1jrK ogMTBwdCBU vG0nuvqtx0fprcbiHfTsWZ IpAOy3UMc3EQNuqNvoRjDi XMY9UfZ9WSK3jLMgkG3ruL ddoceowQ5o Oyc+B94wzS1bOLT5FQF5ef nyOCLchjAkHC76WH07D8Eq PjwvdGFibGU+PGRpdiBzdH plFJ2tVfNt v3rsq8SkGOifE3OtMLMgAO rfSqg8BVCaZBP9qYO6eL1k MGYfRVovn3R0cGQ5A7Eciw Whlo5mt3rc ZUUoMIlcD38qhCLha2I9FG JdvYW7GCGllPqhLmQmyN19 Oyc+QWDusQgav7NlOgftc0 vfq3wmnNa3 MoUpNUYfwhTscTnwWOJ4r3 ZpVl00G70mXClcTONkSVEx UXWcOMDxeFokaq5qsN5pBt 8+PGNvbCB3 rRS0xF4uWQVeLlG6WKheR9 44OqEieJSeXtqir8rcz9sh kEh4QeQrYDYoekSdsOceXX W5m3YyAt83 T38qIKukTYUqQWMfPXJtCI XjbDthrx4apF9hGi5+PC9j t5gpow77nK18hAE+PHRkIH W0nDybHEtf TNZvxH0kNPmzNiZ9WYGtEv AlzV21aDYrAKvlUj7brUzh mYzsIW0gBZDzhskhg586Sg Utd7wbUFFr rNLwIFhuLFL8T35bj7K5LO EgTYIiTJV4bZY0vA4kfNbv bjogbGVmdDsgdmVydGljYW kcVHubG100 IHRvcDsnPlBhdGllbnQgTm BaUEn2Q8JzOgi8PDYseBdk IO9rrDJtSZxiZt1uvZpeeP vuTX6tTGGc ifkqz695ShSpd3uyXRYezC GgSYceXCO0H26ns0A9OTNd YQAaFFX3ySD9oE1nzVldax ogbGVmdDsg vfQoeHuoSXcsNWehS931BJ RvcDsnPkJpcnRoIERhdGU6 UG30ZT10lREju5H3pCZ3T5 BhZGRpbmct eruziFM4QWBoPQLwhQ41Lx 3ijAdhYt6wCLJsFUM5NZSm yMHzN5CrnO9fFwRmKXSdFF MpR2CnhMOr QQgqU451ATymEqG3YKPjro CeC5RfGIWdcEgkGvW9g7D8 Vs0SE3J6BJ91UY08zFRwv8 H4wFD9M4Zx TFPkgnruykspyRM1ESGmAF SebZ74Ww4ykOuoKi4sXAIl NMM7XXTltWXqB2OgqW7iMo AjMDAwMDAw O5ZipPKkTVtvE912OHcaGu S1BWZcwsOjW8HzPLZlvIko PeN9u6V1Al0QIHs6VI11AD 48sEUqi1M2 gPL5K4WsUFCdlanglybjvY P6VUQuSPUgfK26Gq6vfGfx Yb9mAHFlUVI7WLYdiTHbJ7 AywJ6eUvBo CDCpRZEuM8JwiKLePYdiJ7 18UEcyHyE8ZOQojxYyW4Ty TYIbgLmpQbF9c5W8Dx7SAQ AyTN70SRD8 lST1IM61BU54F1AoUcoodF FibGU+PHRhYmxlIHdpZHRo GCrfEEEtBdPthIbeKX1aVk 9yZGVyLWNv xTjtrAFxKgEhg1goZNBtDK mgMW1etJdjW5CueGU4YBFd p0y7Cf92B57qV9ZfuXP+PG DloSU4eGV7 mT9uOgWbAvU0FTazJ706Ye NxrPKmHctgd6rim7jngOd9 WvH5KJBtidGngRwmSXD2u1 KfDf90K59r IHdpZHRoPSIxNSUiIHZhbG ciov3voZ8gYr1+PGNvbCB3 sEH9iT8cJmMeUpV3QKqrQ9 49InRvcCIv Cbwcn7yte7ejrCi9ReIhYO QiatRsyTyuKJZ1o1PoUt87 Z8QlnRniq6LeFpb4jd98qH Jsr6W9kMK2 K3ZeOJDraehtxBPsyFoxGV 2sFMIfycwtHZEyiU5dGZLc Z2p6JaGiQnR0YClaT1Hwbj F0HHAplECl PXwxJWM4F20qx9U8KXHiIX UqPHU5jUZ6aI7ldYnwtlkj bGVmdDsgdmVydGljYWwtYW jnZ223LUUu cVueOHVhlY4fIBVnyAEcoW udMB0fNVExmqqdHmKAL5rA FMcpQNXJWNSMZZdQYI20MM 79lHOmu6W2 vAO5U9TdSTAyarsnxdwtsL A5VKQcZLJllO18zTFaGRux Pf7il7A5a308RNSpQILyvV 26Tf5ufCng EXNmyBMKaW4gjalcd7jxcm rxDrHtWLQeUQs2NFg2UOAg aAhlGaOhVAQ0LnN4HAB3aU KcqQ3qwKzd udzbmL1aTpo+MDgvMjEvMT e2NDoztXC+WAFyJOM6sNrg PChiYEUbgD3wJZKuH3k8Jp DnLhU5PMuj P6NpTUGvfcpaQn55yK8xWa FcOgF5DYkuE6IzgyG6KWZv bTRvLGcqPYE1C50xc6A5TO MwMDAwMDA7 dHP8qB1vzPzpgraibYQauK tjtoAloJktCJobOBsbK844 IHRvcDsnPjUwIFllYXJzPC 25SI39xMPb t8Y7cXS5X0CySLGcfznznn ltbFM9QPXoTJCynF88fVAu SMsjUn1nd6S2g737ZNVwDO XwiE18Ou8f iKijQKTtpFEGuS4typonn5 tjkpvtBlKlEPLyZOj4CKd0 OOTbnOshNnDsMXU6QsE4VY P9cCTajF3g pAjzjkzahZ8tYsb+RmVtYW qfSP67MN58yMBrk4N2oKL8 F1WkSXJeahswenjtrNK2QB HjOPOdfU50 pCFpRTteQd3ld7Z6e459AH RpHOMynV13As7edOfzESWz tNVSrB6onwotl3tyboweZg AwMDAwMDt0 KNc7JRXxcNwxWvSjVNC8Sq E1MQZ3bBSzhZ9whMrshjjf nB2rRgc+T4O6xUD4eWZuuV wvdGQ+PC90 po05E2BcJtqrPun4JMKpLR U4yGT0mR7pSIBlJSjxi8J4 iPN0Y2FhhwVjyi7jj6orUW IuVCrmD66h lTSqv1B1AUEqcIH6UVSezS ksOhKhmA11Diw+PGNvbGdy q4AqEghaj2yps8pobFj8Dm MwJSIgdmFs zIqwYZQ8s2HeMh34G76zPA dpZHRoPSIzMCUiIHZhbGln ri8yqU7qSt8+IKHslPE6yZ C3uJ2qAqYi NsI1CYheD135TeQubIDqZz djy8cdd4gqnGk4OiXoYTRd dnRmvCmnFNV1e3SoJo92T1 YgxFhcj2Ej Fkk4jk60lQBbw0Y0rIA4P8 JcKWKsvfreoWVqpQisWY9n VLCwtftwUMAtwY1xJKFyZ8 v0LjBuRiG9 APwuS2LxjxG7FYAbxNRkFZ TtxMKZyL9wmrzaz7uoohap OxJzIWPmFUs9IGq8TZThmS duOiBsZWZ0 AxA7DCY1cUIogM0ytWlbri dobL4lAut+HDt8u9gfaYWt GF0xvCY6KT89PK97eYQsp1 B6mXO8S9Yy RGKemcpfbjaoeZF2NNEeKG QaiL73Cc9mgUqeMv6qDIHi YDI1XSNaqACnP1NymK5pBj AjMDAwMDAw C1GbeJVqNPipT485QBmoZy Y1WHRjzlVzW5DrFFOyvPpe KdN8k4I9Te3OZA41NH11SV 00tUWlm4F0 hAI5L1EsKOLkqazvbxljaK M8YVWuCEElkK30Ux2yoBnu Qn0gSDGrQLN2QNExcRUgE3 NoyG7fLhUn BFWdVLWcP7SwlQWnUYjaE4 19NYzrNvL6WMKyjlWoC8Ox AUPyeVxfGaS3l0Q7Xh4NOv 71BS16RN33 iRLyg9U1eIB9P4UnZYMcqd krnldajIY1TFBxTTWrgE75 Am0mqPufOg0sTQTaODD8XL HmgSVdU3Kr zB7aYuAkPTGuFARnX9RyuX OdPFgaO300CEmsDrG9IJQa tmYyO8SsQQUbnXqyFsA1r5 A0Rf2KJRaz zjw7G7KtFyjfzUV+PC90YW GnMD43oFTvjLPeq0iqvEg1 LqKrKSDtWZF9tGnuRQvft3 LkYELpU19x bGFw (more content not included)... Normal [facility] BMPon 09-08-2021 Anion gap [Moles/Vol] 12 mmol/L Normal -16 [facility] Comment on above: Performed By: #### 2 742079, 5756409, [id number] ####[facility] [address] [place] [address] Calcium [Mass/Vol] 9.0 mg/dL Normal 8.9-11.1 [facility] Comment on above: Performed By: #### 2 472310, 9951868, [id number] ####[facility] [address] [place] [address] Chloride [Moles/Vol] 101 mmol/L Normal 101-111 [facility] Comment on above: Performed By: #### 2 760397, 4209245, [id number] ####[facility] [address] [place] [address] CO2 [Moles/Vol] 23 mmol/L Normal 21-31 [facility] Comment on above: Performed By: #### 2 623370, 2792073, [id number] ####[facility] [address] [place] [address] Creatinine [Mass/Vol] 0.7 mg/dL Normal 0.5-1.3 [facility] Comment on above: Performed By: #### 2 652450, 0726479, [id number] ####[facility] [address] [place] [address] Glucose [Mass/Vol] 109 mg/dL Normal 55-199 [facility] Comment on above: Result Comment: If t his glucose result represents a fasting glucose, interpretation should refer to the following reference range: 55-99 mg/dL Performed By: #### 2 850446, 4206842, [id number] ####[facility] [address] [place] [address] Potassium [Moles/Vol] 4.3 mmol/L Normal 3.5-5.3 [facility] Comment on above: Performed By: #### 2 559325, 6316910, [id number] ####[facility] [address] [place] [address] Sodium [Moles/Vol] 132 mmol/L Low 135-145 [facility] Comment on above: Performed By: #### 2 036182, 2208471, 60887313 ####[facility] [address] [place] [address] Urea nitrogen [Mass/Vol] 13 mg/dL Normal 5-21 [facility] Comment on above: Performed By: #### 2 162395, 4411744, 03232782 ####[facility] [address] [place] [address] Urea nitrogen/Creatinine [Mass ratio] 19 No Units Normal 10-20 [facility] Comment on above: Performed By: #### 2 978160, 6689152, [id number] ####[facility] [address] [place] [address] CBC w/Indiceson 09-08-2021 Erythrocyte distribution width (RBC) [Ratio] 12.7 % Normal 10.9-14.2 [facility] Comment on above: Performed By: #### 2 166835, 5303662, [id number] #### [facility] [address] [place] [address] Hematocrit (Bld) [Volume fraction] 40.3 % Normal 34.0-46.0 [facility] Comment on above: Performed By: #### 2 858440, 7198648, 70220985 #### [facility] [address] [place] [address] Hemoglobin (Bld) [Mass/Vol] 13.9 g/dL Normal 12.0-16.0 [facility] Comment on above: Performed By: #### 2 803373, 8705406, 93846877 #### [facility] [address] [place] [address] MCH (RBC) [Entitic mass] 32.3 pg Normal 27.0-34.0 [facility] Comment on above: Performed By: #### 2 948948, 5613742, 45588767 #### [facility] [address] [place] [address] MCHC (RBC) [Mass/Vol] 34.5 g/dL Normal 31.4-36.0 [facility] Comment on above: Performed By: #### 2 378958, 1920980, 54844551 #### [facility] [address] [place] [address] MCV (RBC) [Entitic vol] 93.4 fL Normal 80.0-100.0 [facility] Comment on above: Performed By: #### 2 818791, 7283943, 35212751 #### [facility] [address] [place] [address] Platelet mean volume (Bld) [Entitic vol] 7.6 fL Normal 6.4-10.8 [facility] Comment on above: Performed By: #### 2 312178, 7021220, [id number] #### [facility] [address] [place] [address] Platelets (Bld) [#/Vol] 401.0 E9/L Normal 150.0-500.0 [facility] Comment on above: Performed By: #### 2 919150, 2027327, 80163266 #### [facility] [address] [place] [address] RBC (Bld) [#/Vol] 4.3 E12/L Normal 4.3-5.9 [facility] Comment on above: Performed By: #### 2 928507, 8618097, 64497740 #### [facility] [address] [place] [address] WBC corrected for nucl RBC Auto (Bld) [#/Vol] 7.4 E9/L Normal 4.0-11.0 [facility] Comment on above: Performed By: #### 2 407238, 1145767, 21257032 #### [facility] [address] [place] [address] Consent for Treatmenton Consent for Treatment [id number]#[id number] 0CD:127 Normal [facility] Physician Orderon 09-08-2021 Physician Order [id number]#1. 00CD:127 Normal [facility] eGFRon 09-08-2021 GFR/1.73 sq M.predicted among blacks MDRD (S/P/Bld) [Vol rate/Area] mL/min/{1.73_m2} Normal >=59 [facility] Comment on above: Order Comment: Order added by Discern Expert. Result Comment: eGFR is race adjusted. AA=. Performed By: #### 2 001947, 2682434, [id number] ####[facility] [address] [place] [address] GFR/1.73 sq M.predicted among non-blacks MDRD (S/P/Bld) [Vol rate/Area] mL/min/{1.73_m2} Normal >=59 [facility] Comment on above: Order Comment: Order added by Discern Expert. Result Comment: [employer] mahad kidney disease could be indicated at eGFR's of less than 60 mL/min/1.73m2. Kidney failure is indicated at less than 15 mL/min/1.73m2. Performed By: #### 2 983835, 6485120, 64019199 ####[facility] [address] [place] [address] Stress EKG Tracingson 2020 Stress EKG Tracings [id number]#1. 00CD:127 Normal [facility] NM Myocardial Spect Rest/Str ess 1 Dayon [...] Stress Dose (mCi Tc99M Cardiolite): 29.2 Normal [facility] Coding Summary.on 07-15-2021 Coding Summary. CD:[id number] Gh 0bWw+PGhlYWQ+VV0BKYPsD 45xfPHwxH6IM8bEMB3VEQM UXQFPSF0ADA2pgUV8NQukI 2VybiAv EfvwsHJoAV91MVp8FXN4tZ qoJDctjF2knGNyL8j9QfHg AS46pK67PBtdICYzVkQ3Az ZpbjsgbWFy R9lqOnPdaNExUhf+PHRhYm xlIHdpZHRoPScxMDAlJyBz dBdzDY4tZe1dTCHmDWYwaP xhcHNlOiBj j5nkBIWoDBfeQN9psEfbJ9 MbsJF2TLWei4k6Sp10eHQ+ VVExNYF4fUzlOAgko173Ci Vfb1zxTVK9 lQSnXSwsYSR5U47uy4C3ZO HhUKCsQMU9rGZ5eU8gqUcv iuukH5DpaLPnQyN6NRR1xW QazD5yzQcg esavyS3mVgx+S67IFX5QTE FDXE9EUql5D8OrNbovcQG+ CX45HJJsEE69gYKmjVEes2 fnxAb9BqKx XUCfCZA2bIvfTJgbq2FaUN GpN92nnPPns0Q7NEGdgIde pMLjXzLxdMC9oU5fKZvqrs get7htizfu Akcsk0yhnw45zJ28R90rVC umPFEiRSC6NPHoXJWcmOpl mj0cvO6bQi8+BDarg4ibu4 mpkLj1LxBl QYNhriFupNixVUG6v0GeNw 75N5JvjQoop4YkWux3nr14 tAEte7K1qIE1OUxwFGSvuD 6rUZcfEvT7 LBDgZoRtiB97dWFoWDzqJu 8opNkojTnnNW4fNKUyngqt YBKixF5pNTGavDStlJkdOF 4wNTBpbjtm t133OdBpQOP8XWGjtLZkS6 AwnP9rWdQpPAIbZLRzB1On jBSbMXjwV705DBciMcE6KI FfswOkK9Vj OEUmjVveTuZ2w3W0Wz6Hc5 MyiqcoIPM4HKfwINU9CkNx JgZtMwJ0R1LlZyc3ZRHkiQ hiJO8dZ8Xl MHUdyqiextnupSV1ZSZtDM SmuD16bMHmPGgqKb7yk4F7 b071KWGxLFBqcG49Vz4ghT ogMTBwdCBU jK5focxwk6xlalqfFdGmJE SxVAi4IUr8OSZszNvcYuAz HCP7PxQ4WHI7eCXcqN6zjN vwyhxzpU1c Oyc+L22zgF4vKSI6ZRN4wg rxJGDyspMuNH29VT12K2Es PjwvdGFibGU+PGRpdiBzdH pfEY3jXpVz u0hdc8FrVQfsE5EgERIqFB idMgs9UAAiMAM0iHK2kT6k BEScYPldk2J2nMZ2O6Afhd Qbhw7ym7hr SOCeZOgzT33ihHIes2O3FT WhiJT5TQKrjZszVhAykJ61 Oyc+ISWieSsey7WnQtazc1 pnj5rdmWq4 XsLkJYRacoJvmGiiUWK8n5 XjWa00V16rVYwzEFJbXHRf PARwKFVhiIqfyi4scI4aGb 8+PGNvbCB3 jRV6oG1tIMTzWwE0BMwtS5 74SdKcvANwAeydm3mod6xn rCf9HeCqTLBvrzHglZlxHT L3v1EcEo41 U92mGPnvWTMyWKFdEWIcOT BabAdwbo8jzW3hAo5+PC9j j8uudg88dM58aFW+PHRkIH G7mRsjGAri EGRxnG6cGSqzFrQ7TRJnLy IxfP96sOJyZFqpMs0rvTpe vYxcNB7zJZBszfvua368Wm Szk5sqGOPk yDUmNKrpWMF2B26kn0K2IQ IgALPuYPJ6hGX6pD0fjGpf bjogbGVmdDsgdmVydGljYW hlFDqaP880 IHRvcDsnPlBhdGllbnQgTm FdJMg0O5NvIce4DOElsVfi GZ7tyDNcXYwhVb8xgFbqgH ajPA8hIWMc ipnru007DrLqw8ppCECcsU ThHSkaSKS1U76jf2Y8JEHv QOGnVKT7eSF8nH2zoXuppn ogbGVmdDsg ihBllJerJXcrYZixD520QB RvcDsnPkJpcnRoIERhdGU6 BO82FQ54iBGzq2N1cGC9T7 BhZGRpbmct hqvmwCC4LQMdUIKvaV04Eb 4nfSvwLb1kPRPbJYW5GJRf iPBzD5EabL1uIqEtZOYyLK PoR7CisFKz UJhvW099DNrfVjG5LPLwxv CgT4BfOMRnvTwnIwY5a3S9 Ip9CJ3J6KK67DI33kCXyk5 C1pLU7L1Af CCQikbxxznebuUQ5XNXcRP MtsQ77Jr1qqKngTa0lESIp VDI1DLNyoFJqW3ExnU6hSf AjMDAwMDAw Q3RdvEMgAMcjQ153SBfkCx Q4CDBvpcStY5RfPGUckYyi ZxT4j2Q0Ve7CRTr9OH97SE 55tSJqe3M5 iNH5C9RzJMCbbmacugiwaN X6BGFqFNZsiC62Nd4keCqr Jj1wOUJbSDO1WGRsoKAkC4 AziR7oGwMy JDXcLWUlD4IyqNJhMXcuD9 65MQsdZnE9MWXlxoKfB7Fu PKJwrNxlYnL4x4W6Ry3UDY VdAY65TPE4 rKD6YZ81AH62D3SlBhzjyR FibGU+PHRhYmxlIHdpZHRo JBbqBMCdMtAtgHaiKL7nJm 9yZGVyLWNv iLcuhAPpLdYub2hpRQEkPP saLL0zhTgeL4OxaKU2TIXx h9g4Yf99Z24pT6PqyXV+PG IdfJH1nGN9 gG0wUrIoOpN6IXwgB673Ms XluVDeOxbjn8hvq8jbdYj7 LrC9AFIjkoXvlBxpQQX2f2 KiYs45B65w IHdpZHRoPSIxNSUiIHZhbG dpjn0wtP7jFr0+PGNvbCB3 yKP1xA5xYfWjEwK4GEekJ7 49InRvcCIv Wodkh1zxs5xreLa1TvQxAB WrxcUnwDhiAET1y1FiJx35 F7OaePuof2NoQim3dx12pC Hoz2V7sLS7 R4QuAAVlbizzhJXxsTixIB 2wEEYihhpyGICktP3oHJHv Y5k2IcMbFlG1AUunF0Yrce R8GPOwbZFu VOnhCEJ9H52kt7E9HTDvCP RrIEU3oLQ8rE9yfDpjhgqu bGVmdDsgdmVydGljYWwtYW xxB191JXMm gWdpTCGxfC4cZEXlsYZbwC vcVV7mNYAuuhfyChWLE6iY YLptAVKNOCCKALjGRE13HO 53vIRtn9Y3 oTM5G5GoLAMuvqxtspzmrP H6UUViDBXgmL87pOZiCHsm Vd3hk6O9y552IOUhWHPliS 88Xh3dfHtm GCWmiTRZeJ3mprmnw9hkag giWwKnIGNmXYk8NKg1UQSl jAkoDvQbXXC2UdU6OHD4nV QadV3ucSwy rffbhQ8qRir+MDgvMjEvMT s0ASclwXG+IOXjFRM3bObl SYugDNPgbO8gALFhH1c5Oe WyLbS2RDfw V7XfFMOphplrZf23pG2pIj DpMyA4HAciI7RbkrO4XBBh nGHvQGxvCCO3C06er6M3TD MwMDAwMDA7 hGC1bO3vrRvpdkzntSJmcX kdrlAjfWbhBQqmDLfjS986 IHRvcDsnPjUwIFllYXJzPC 06HL59jCVo y6S9nDL1O8NeMMPsbtpxev bfvNQ6OLJsYHUeaT00wNRt EHlrDr4sa5D6u223NQKqWI ChaB31Eb1v dSvtHLOttRCGpD5mqndvi6 lhgvsiHqCpROPyXSy5RJl1 LTSscEdfGrMqIDU9AiP1LA E6wYKpjC6z sQffuikewE5cLpn+RmVtYW aiPR11QH72aSDls8J3hCM0 O0ZiKGJbedhshfxufWR9AV VoDQNeuS25 nPPnNKduPi3cp9J7t452PL UdRVTidV38Ys2zmUjgJMRm fKXSjR7qqcayu9gmumjeGi AwMDAwMDt0 AWc3JEOrvEuyQwUuKHN0Ae Q2LOH3tLWbyI8rxIbopduc uK3pPwz+G2Z1eUW9wSXumL wvdGQ+PC90 fa70K3TlMvsyAzj9SYBqSV H2wGQ4lR1yCJJaGFtvs5Y9 mQJ7S3ZxizFeeu2yk7hnAH JvJWbqJ95r qCEwf4F9ILRryEA9NQSpsZ rtVvUemF52Oob+PGNvbGdy r9UjWslhw6ohv6vddDi8Ld MwJSIgdmFs eHmyXHD8a8MnPd10P26mEQ dpZHRoPSIzMCUiIHZhbGln ye1gpK7aUc7+HQUfhFH2nA I2cK3sXyAx VyO0WVhhY731DkSeiJGwWv vqn2xuf4oxpDw4OuDmZWXn coBtqCtwSDE7d0DwFr33Y9 CvaHcdt4Qt Whb4qf04sKYki5M9dWV3X2 WaZCJkjigxzXCkcIufTA7o SVBtmhlmIXEjqB6dTQIoO1 q8RbRvDyI8 MGfjH8JoijD7LLVdiKFpHU SofRJKuQ1nvutii3knlxpy DeYuDEMtVOz5ZUn8MTFejN duOiBsZWZ0 AaA2JDR5tSFoqH2lfAbovv opmO3hIme+MPd3a7qqoKHf LM0pmCS0AY35GW60kDZlv8 J6qTZ7L1No XCPpglmyswspoWG0TFLhFP MaqN63Wd8cyPpxLq9vDGMw LAP1ELWweHGlY8PjkZ4zTo AjMDAwMDAw L2QkrFWhQRwnU766RFnqMp E1LFJvkiFcQ3MyYODrsQvj TyT2m0E6Wj4PLL03JA46BW 49bGCqk9T8 kFN9Z2GcFUWhvhhiqkzeuB C9VKCcAZDaqU95Km7njIfm Qp0cRUFmKMB3CSBhbFFtM4 VfvH6xHlAw HXSjTNSsU0ThiAEtEAxzP5 05FEevJsB3POMggiDxI8Vt DQXpoOrxVfO2y1X3Gc5ZXr 33XY54KQ52 pSPzp4X3wTC5K0FdVSBuku hsmdvssXQ4REXkDAQhdM74 El7rkJkuIu8tLDJiBZF8FO KamHQwR0Mk rT8tBoApPDAkMVSwL4JaxS GoUKexQ766RAkkSvP6XIPe twZvD1DqAGBgjOnmUbT1r4 U8Jn9PRBnk hjb8F1UzKggbwCG+PC90YW JqMA56pNVzyTWau1aclGe0 GvFuADTpQKN2vOlyUBiqy1 KnHFAgE10x bGFw (more content not included)... Normal [facility] Consent for Treatmenton Consent for Treatment [id number]#1.0 0CD:127 [facility] Physician Orderon 07-01-2021 Physician Order [id number]#1.0 0CD:127 [facility] Coding Summary.on 06-27-2021 Coding Summary. CD:[id number] Gh 0bWw+PGhlYWQ+DK8BMBFjU 59cwFXplL7EC1hGKW7HTRJ WHVREEL2MVU1qzYR8VXvmI 2VybiAv DgfneMJwFR97HCk1OAV9bU daEQrhmJ4ceXOpA0x8WtOv UD84qP61VUxkPZPuTrT0Kj ZpbjsgbWFy X2lzNmZlcZLcWdc+PHRhYm xlIHdpZHRoPScxMDAlJyBz hLqzMD0fSn6vEXTeBOXszI xhcHNlOiBj z3iuYIDfKAbkMK9ahNzbQ6 UuxZQ9BTXvb9g4Su79xCX+ DZPyLEF6tOqbDCwvw527On Cxf2qjIMO7 zYMdMCdrNEI5W54tc2B9TA VkHSCrKHB1kXA3sY2ibIwn iizmU4DepDOxKqK8DRE7fS AicE3reYlt mirzmX5rLcd+V01UNV6QIJ TOTU3MAjh2E2FzKopstTZ+ TB78NZCoSP22mWQprLVab5 psgCp0TvVq YZGvBNC7vMmqUTfix8GfQN ZrT55uoAIas7V1GMAbxTfw vPEiNlBhrMM2hE6oMGvwoa psp9vjbnkg Gdoaa2lsks47kQ96P14vEE ofWBLdBLA1OYPvMXUxjXzb qq5vtT0kSu5+JCfgr8kww1 nvkYy7XeEk YDAopyFdrJhhIQT4p7OlHf 37C7NrnHxic2OzYxx7it29 gFNpo4L4jQS5BPfuGLKvvF 5bNFpkYsT0 FMZcEfTdlG21pKDeTOulMj 3waVapvSdpUY4vSFLdlxiq GQQlkR6nIFQoyPFdlOlbIT 4wNTBpbjtm m422PxTrWVY1BFHqaERzB3 LesB8iEkUzJTFoVZKhP6Ve vNSzKBljK052SCqhYoQ4FL GkyqKhA9Oy VYUvbItaEgY1p9V6Yh3Og5 LavievXQR6DSamSFX5JpPn CkTdWcM0L9GaYuu4FXGezH nhHR3nY4Zk LSJdnfbaqopobQD7GONjHD JwdN68mIIyWPslXu2ki1C8 g930VMXfXODcaC65Or1haX ogMTBwdCBU kW5bjihml7pxvhreVwIfOI XtHGn4AQq6ZHJejYdvJeMv EZF6XiZ4JJX0xNEveX2efR ndwijfyS7o Oyc+V23dlS3vRGW1HEX1pp ppWMXpidSzMA05HZ55Y1Pt PjwvdGFibGU+PGRpdiBzdH oyFT6hRcUn t3pbv6HwLGgcX6SwELAzDH nvUam6ZKYmRCA0tFJ9dZ6w YVZzTAjug9C2lCU2J3Bsem Ytbd2cw2sd CNAkIOauL74tpYJqj9U8GF GwiPM8ZUUgsTwnXwMueN00 Oyc+GYReuWjfh6DtNbnzd0 erf3tmaIx0 EiVrBDJgkzLfxWalOQM6x4 TvCk18Z38rDTnePOYoTVBe PPJaHEGweVvbzw4rsW8dGe 8+PGNvbCB3 fWM6eV5zFXOyPtO2XJevY5 12RjUkaPNfWmtxd6xiq1cl bUy2QpSkVOHhiuUcaDauEU D7n1PgAq51 W40zTRcoSULsQPOtVSGrYH XucMvixy6odY2hCe4+PC9j n7irla09uG11xUZ+PHRkIH D0xBioOKvi MQJbhM2bHBkfFtE7CTEeBm MsyA98oYMoOOeeUc7hbAnc nAhaXP3pAQRxoufob984Wv Qsx2bmLHZy xSWgMNsfWWU1M47hm2S9QF ZbARBaYLE2gQI4mW9nqVjs bjogbGVmdDsgdmVydGljYW wnDDdmO985 IHRvcDsnPlBhdGllbnQgTm HiDPf9A9JaQvj3MKVfcCoh BW2coZHfZFynZj8wgTypfB ptZB6eMOKd qslda315SkIth8koOWBigH QhOJbsNHC0C29yr8N1CXHo YDGtCPL8xPB6aX8cfHvmbn ogbGVmdDsg wfZgnGtaLSnhOJheY395SB RvcDsnPkJpcnRoIERhdGU6 OH06HZ65yFAvx2P7mJE9A8 BhZGRpbmct wdlvbNE2AXNoFVJjfI77Kj 5osHzhBx0cXBKbRDH0XWDa aZPbT0UmtK5tOvHrJTDnGD QrS4MnlNNa RUkpW274MKunMoO9RDTlds CeP2TmSKMmgGydVxV1e8R1 Oy7SF7L6JC84QA81uGMgl5 S8pVA8A5Hu GZFuxqafenxyuAP7POXaOO AffZ93Iy5lyZvgTv1uRYZd PNL8OEIrqBAwG3HffR2cVt AjMDAwMDAw U9EwcVWpOXyxY621BEanWo S2VMUgxuHzR2NxSQSouZxo IbS3i9C7Tg7VZAh5UH72OP 69tWVwq3O4 zMS6K0HvNMFygtfcqmyrpN Y5WTZjOFHrtW44Bd1utCad Sq8eHKYfEZQ7CXOuvMVqA3 VmwI4qPcNk FSXqLNCuL9BbhDDjNQmqD2 51ZEmxCyY9BNWfdjSzA6Mm PYBqlTpmLwD9n2O2Yr6PWP XkOW30PZK4 wGB3VE82XV04B3DtNrrbjY FibGU+PHRhYmxlIHdpZHRo EWbeGXRsRiRgtRetET4eHs 9yZGVyLWNv jJmfpZCpIyJpa0kjEVXwGA ktQH5wqXotZ1MzgBU5AVXs u8e9Lb20S00fW0EddSD+PG WhiBW0wDG4 wH8nDrHsReD8XIvaS037Oc XcwJVgExcpy5eoi8sqyTm0 GiT2HFGykeSswHryTVH8i5 TyBq93X75i IHdpZHRoPSIxNSUiIHZhbG ileb7kiH7lAq8+PGNvbCB3 yCZ5oF8wLoZyVjN9LGhqK2 49InRvcCIv Puesu4opr3whqWg5OwRuRM GxzmQpgSxeLCG7m8PyEj04 E3LicTgpf4AwRvp0os99xJ Drt7A1qFG8 E5NnSBIgkmqrrUOqhCwxBE 8hBXZdiycfJVHduT6eYDCd J6v7NkAjFzV1IXbqL2Vrsb P7TGAcdMJl AGfrKDO1O93vi2B7JCMsPY LnOVS5jHB2pK4brDoouqad bGVmdDsgdmVydGljYWwtYW vyZ030KKZd mKceSJRjcM7rTAIrlNJbeW ogHF5lXNOgpgpaAsIJL2wL DLtkRVHLGOYZTHxPXP90OJ 37iGUwe6P4 kKU6O5BhGZHrckzuwtgajQ Q8NYVsPBDxqZ51fHXbHUau Ar3jy3H3t929AHEwKGObcI 18Rc2emClu LQHlpVYLxS3fjnzjb0rdpv mbPjYwGRUeHCj3AFz8ZESt qSveGyCuWUS9YoJ5PCZ8gM UalC6mdLej lcntjI4sFbp+MDgvMjEvMT k4BAyhdNP+SYFxRUX2hNyd OPzlQTRiyG1fRMEqT3j2Kz AoCxT0TLnt N4SoWQFosxpwIx28tK4kSe PnYhW8JExmV7XvdvP7ADUf iKYaQRwrALQ1T52to5O7XO MwMDAwMDA7 bBS4xI9hjPqdyrqvyHHxhE vlzeEeuGdiHErqSDzhX002 IHRvcDsnPjUwIFllYXJzPC 87DU86fWWd x3N3gWL3M0KbUZSuumlbur ebkKR1KCCjQHXbqB08iFKw BAshAy4uk6T5w013DQDdOO WhsU98Nm1g lEtfLPHtaNDWaX9ylietf8 fzkmfzKzFtKXVkQZs8ZLh6 WPUkzMcpWnOqXTZ0KqY1PP A4nIBaoU4f dGibyzsddZ9qTyu+RmVtYW ptBK75KY89gNUnr0E0oTL9 T9YbBIIewvgmcwjwvFV5MU LcMTCwnA97 tUPfZCdyLz8gz6A0f535VZ OkCRQnmE95Cu9wuRziIXKu sXVAzU0cceyyy1gwydwyMi AwMDAwMDt0 VKz8JSZchJzzIwTyCRF0Pf W6QPZ3oCOowA0klXmvbkqv sQ2pTpr+X2D8rGL2wWMwbD wvdGQ+PC90 oo63O7ErQubdUdf2GKHtYA M8aEB4rU8wGNAhYFfxp2F8 aHI6J6OrrmOslf3oi1isKD SqPHgtJ42h yXQfn4K7FTOwsUM9OWGvgN aqGrKymE28Sjq+PGNvbGdy q8HpGffgy6qxh9rhtGu4Vu MwJSIgdmFs ePnsNND5k2GgHr84O87wYL dpZHRoPSIzMCUiIHZhbGln wa0idT6bBx1+DVGicWW1lJ C8wV6gYtTk UuB4VNphN069KmOdcWCcMh vao0qow0ebfVm3DfChBIVv vbAxlBhsECC8h4TlVz30R0 RgwHwmz0Nw Wja2ts23pFOsb3J4fPH7K4 ZdKVBwgedaoUIfzJpjUZ7y ZTNwpvhoAVCkkF3fBPXdE4 q8MbZiOaW7 MRnlD1YcvfS5ETDdhQNgZH NaaDXEbT1rgdicg7wwlgar EwGcMQQkCFs5DPn0SSXgwY duOiBsZWZ0 WoY9KWL3oWUzeS0glQzbfl mnbF7hUjg+XPj5h0twlPGg CR1apLB6PB33KI14mLKlp3 S4cKY8Y6Zg BTEznhyesmkupTP4QZLtHO SzxD57Fd3vqExjHw6cOZCp MGL0CONdaMJmF1OukA6nDg AjMDAwMDAw I6XrnCOyLJcvD357PDuxMs T2RIJgzaPiD0XpTGLdoPsm LeU2p8I4Vo9DAK74HV99DH 48fRUig8K2 dUT6Y0XoQSXvvlbjibbmvB S8GSAdYEHujU59Vf6nqHqb Ak6kSEZdHKZ5EULxpCOdY5 JhhW7fPuZn VFXaIEOoH3VmsSElPWakV7 57CPyzBlF0PNLgsvKdL0Aq VQIvjXasLvF0z7D7Ap0NVt 68HI19KW58 vIUko7T1cXK4K9JeBFVkrs mwahjxjMQ0NKJkCISnuW97 Ws7blGpvTl0mICOxTSC4LN VhkWCxV5Cy jP2hWeNxQVZtWDLyW5RxgK LdXWfwH741OHqeLtK8QDHx ohIoX9YjPMPbxVvlSuR2c6 H8Vn1BKDys wrt4R3LfJstaeCU+PC90YW VxLR10kUTcmJUsb7jjbEk8 EaDzDQGlSMB7aQhoMJyrq8 ElDZSbK60e bGFw (more content not included)... Normal [facility] Stress EKG Tracingson 2020 Stress EKG Tracings [id number]#1. 00CD:127 Normal [facility] Consent for Treatmenton 06-05 Consent for Treatment [id number]#1.0 0CD:127 Normal [facility] Coding Summary.on 06-21-2021 Coding Summary. CD:[id number]:[id number] Gh 0bWw+PGhlYWQ+TE7GCFZfV 15ksSRowK6CZ3vGNG5GTKX STPGNDN2CIS0kgIY5VLtcL 2VybiAv UbgdgBDsEW89OAg9ESN9uP gbTZkegA4weLFyY0i2IvKt JS75uC10WYcmHTRfEiY5Lv ZpbjsgbWFy C7ymPcRcnDVeMrv+PHRhYm xlIHdpZHRoPScxMDAlJyBz pRcbQS3qFf5nDDYpWPRobF xhcHNlOiBj u5ayXQKzXZpzMX1uwHnhW5 HujUW0ISRcr8d1Ii12bJW+ BUAfAIW7kZlyGWsrb736Le Ckd7cnFXI1 fZNjYIqbEOB1U44hl5C1IZ VkRQMyGSQ8oBJ8cJ1deJaj gtciY7CohPCuFeG4ZZQ2jJ LbsD6byHan duujuW5jBtl+S74LKL8TWM CBYT8TWwn2B3EbQghmfMA+ ZB76LHQmKP43nSVayIJiv7 vkaOt8AyWq IRSxNVN7wJkwWTrhb5IaNW ZtL44gsTCnr5C7ADFbrPjj dCEoDgAmyEX1gK4uTOcirj vds1stwlnx Ktspk1vgrq57uH79I54fEJ irLVYzOKR8WMOiEVMwcZhu tz9cbY7jWx1+IVfrk9aza7 jnmFm4GvPd FXDpkqHzvKirAHW4c5XpRj 52P3PouIbwe2NeIcd8cu69 wBPcg8V7vUC6LMwrFGXpjN 6aISdlCuI0 FVWiHnNavX78qEPgOUhwZj 7gqJeumSxcTX8yVZTkknzu MOTeqR2jEBVvvVHoqJtgYX 4wNTBpbjtm y206TpIrQIX2TSBclPOoM2 QjwE4xOaRaXEIxODPtJ9Ft iKYnSXaiK969NWwoQpX4AE JpdtKnK6Fa NILbeOrtZfK0a8W9Ql9Sw8 XpplxyOKS2NZfjSAI9FuS0 OoPuEkD5B4XaQqo0PEWvwH ifTG4pL6My SJVlgbofahbzkZT9GRUyZK OtnP49tEEzMNgpRd0qp2Z5 o665ZNFqBFOxyI96Jd4nkC ogMTBwdCBU mX4pwgham4nqpudbBgRvIK XkYCi5PJd7VDXkxTmjLzZu VIF1HqH1YLT7rBPjxI3szU dxrkoylE6e Oyc+Q58ieQ6iOSH3WWO3ea adNQTtoyReDU60LV47W1Se PjwvdGFibGU+PGRpdiBzdH fjNI4iPaWq x3zwn0BoDLkdB8ZsUXUbVT axUmy9UZKmOYM3xJJ7jS0d YWYpAZggv9S9oMA7B6Jtzg Zxab4jb4pu GCNbTUyqH34fgNLus5I9RT VxqAS1GNUqtSlmTyNpfF76 Oyc+FSQloPpts4MqAmfwy2 dzn0bnzHr4 YiKdJSOduoNsnInwOTA9i1 ItNm77G96nAYmhZXAdJPTx VUZmFKScwWitvi2xuE2pQd 8+PGNvbCB3 sMT0cZ9xTPMkYtL3ZTdmC6 14QyCujJVvQunxt7neo9gg cKy1PhBfBRPosyEjcJxcJO Z5v6KdUh75 W70rXHhyLNLyKVHgLMYeNK XheFqfhe2umM0gZd2+PC9j q7ptuc85vN51pDQ+PHRkIH M9xBxhVJun XOXqxE0aLUzxXlC2USIhKa IdjF51rLMuHVvyCy6cvQzu hIboRP8ySZPaudpzh686Qo Oyf9jmPPSn dGCwZBbyTKD8Z03zb2B5YX MrNDYrMFU8lTH2zO9hkOcl bjogbGVmdDsgdmVydGljYW qeFMrmQ611 IHRvcDsnPlBhdGllbnQgTm BlHEp5F7FgHic1FKPhfHwl IA1ulHHvCOzzYx3ayTepiM elMO6fTEUf gpffb736FfWlj0mvVWAwhV RbRMlaYPN1V48vy0E5KXRg IPHfXNP8zKR0vS4xyVhxkz ogbGVmdDsg amYolNxjOXupIYcyS803XA RvcDsnPkJpcnRoIERhdGU6 GV27LN37rLJnn8P7fYL8U1 BhZGRpbmct rnqyuYQ3HTEqMWTbfV09Ns 0cfQnyQl9uIOSmAZH3TUDe kVGmI7FodH9rUmGcHNYwTN UeT8IilUDo YYazT218UZwkHkU6NQCcfg XsZ8PeGLSbyFrrLxA2i0X8 Fm3TQ5A8LL82CW73jBFpz6 A2kHA3V1Ow TLIsyyzxwhoseKO5XDIfGU IkjP29Nz7qhWfzDe7lLNZa BKJ6KUAebBJkL5LtlS5mCz AjMDAwMDAw A8AjbTPuJRjbA319YOfdXn N4GYZuoiFvN0PoZSJkmAcy LaF8c9O7Sz7DUQy9YV86AD 15qZHyz2U9 rGW3Y6WlTYDvuwwydnxbdN A0TALxALYfgE44Zg9rqBsw Zu7qEXObLTY4XJMrxVOnZ1 OgcB7qTxJu EPGmANXlV0CnaNPoQUkgK1 02FQggWaG6FJRxelRzV3Uz IEIwnNpsUtO7y7U6If0XYN DaXB16DQL9 mWB2AW21XK15S8IcXqkbhX FibGU+PHRhYmxlIHdpZHRo FVdyZHWoTnNddRafLG1qNw 9yZGVyLWNv qYmmzDPoOaJdg3qrNUEcNS naFC5toAzlG6NsnOO6SBZm v7e7Cf47C93lT5PzcSP+PG EwzTO6kCN2 xY9kYgZoRrX1PTabU846Jz RjaTIsQhfkd0pno6dreZu6 PxY4CAUihgOqsFgnLHI5d1 RfRi02B34z IHdpZHRoPSIxNSUiIHZhbG vksl8klQ1vLc0+PGNvbCB3 qFN7gB5eUjOaHoV4WHbaW2 49InRvcCIv Sraxi7nxf8oiqZu3JeWdXR ClylFyvTenDLV6p9ToWv09 N2MkvNhzx1FkWey5dp80uD Rsu2J6eNW9 Y8CnDRLxzinrjMKpiYgsJH 4aWRJkllosORNebP0wBEQh D4t1CjOrIuW1VHmqA5Lqmg P5BAUvgYNc MNvzCJF0J07bu9G5AKZyEB SdOYA0cZK9cW2kpWexrmpg bGVmdDsgdmVydGljYWwtYW ztY523ZSWg kNluNEAwkU1hGTUyjWTwoY xeKI2vRIFwberdAeAEH9zF XOldQCPFFPJDKOsKKQ62HU 80fPNjz1J4 vLN3E3OjVJFlkzlvazeqpI A3YQBlBVFqgN25qPMzRDhh Gt1ja0S7l733XTGhPRCnjZ 49Ru3rsWqw AFVbiIQGqQ9oawxwg8pgoc zrLlPlIQTpBAd2XSa5CWIu iIzlDhIvJIW7ZlT8ODH9jY FxqG2uyVvi samgbX2iZdf+MDgvMjEvMT j0XKehhMQ+NQIkOML6oLgj WMpnHPBxmH5aRSOxW0t8Yt AmJfU3QAfw F0VwYHHrzdodZn72zV1yEa UmZeB4FZgbY3RnhzT7CGMp oARaATgtHZD1E28ul2B3VE MwMDAwMDA7 zGD5jT7xlPdhmnfxrDKtnK uotcHdaWpcESdtKYfuE163 QDUvoFqlZiX7OLndRBHoBD 93DK58eXBf z7W5fKY0D5UkLYViejbdfx fhkYP8VIMuGEVwaO70yDHj BFgrZk3vg4E9w871UVViNF KvpX73Bq1u dRgdFXKirIWFgK8lykkmj9 gqqroyPkDoGNXbAAe6WCv7 PWNkbXqoZaYsEYG9FbB0CQ L1aYKsxB7u mHukrknsrD2vBki+RmVtYW ygFH08TE74tEVha4X5eML4 V5JkFHBmajrvhhfsiWN8CS XeEWZgqJ16 dTRgSOrvSd9zb0H2j434NI OmGAJvvP42Pb4olIfcGNDs eCYPvO0ygbmae3yzoykxCv AwMDAwMDt0 WUo3PMDcnTskPrSjBQF6Oo J2NHD0sEZerN4tfVgozfbr wF8vGfs+M7Q9bOD2qMEzoM wvdGQ+PC90 ng50C6UoYoneXke7BTPyVJ E6lTQ0tE4vYLJgRBizb2F2 gNT5M7OofsTmex5wh6vsRL QxYPytJ37r gCYmk8P6JAXkrYQ8XOFtiQ gmGlYflX32Mpb+PGNvbGdy s4ZlHhzxz5fxi7rmpLu9Wg MwJSIgdmFs bDdwRVG4t0NyEk84A73lDL dpZHRoPSIzMCUiIHZhbGln rt1xyJ8dSb1+VMRreVJ7sQ X8uW6mLzGg BpN0ICxqD872YjSpiVHtNg omb9fsv9frcVw8OnHzFFAu hkBleVadXMW2r7MiQi36G0 BqsGlef2Db Jsz1dj98mNUjs7L3gSD6F2 FkHTEdqygevIOvrIixGA8w AGBzsvhbQCDmcW8zIGFeQ4 r2TpTiWqN1 YPudP6AxsfG2XVXoeDZvPQ MxfHPRhP4yplbag8jomedp IdPsIVJkGUv5RQn1ZJUcmY duOiBsZWZ0 DdT5KQK5dBEpxF3zzCtwzz hukM6yRzv+ANo5b8ajqSYp VD3dzHX0SU95CQ52xNMlp2 E5tPU9I2Rj LUMihncvdjnosGG8CGHpGI WxvY26Ry6csGngOe6iRSEc RPB3TBQwzLYqS3JfiR9nTx AjMDAwMDAw G7NxuLSzMJhuD764CHqeNy K4ZXDeflAgY6VeBUApyStx DiJ6b2Z7Ez8EUV16ZT61LR 66qUZsi4X3 mQQ7N9HrJBJjiccuvowsdX D9PNBnPBWyrE21Xx2uuByl Im5yBXKuYKP3ROAmsUEbX2 ObgV8nGoVp HTSyJQKiB9DtnMOtBQasG7 66OVnmElE5XJFxyuOdB4Eu KGKkzXooWlT7g6R5Sv7RHl 01ED53JO11 cZVmg3R1zDJ0T8UoXPSpme vrdtvzeBG6VXUfSCFyvT95 Bn9cqHdhVg1mQRJqGOO3CZ RurBQdM0Jj jB3fCvSsMRMjCTUnP1OuoU CfEIubF173LYufCqC4OLKd nrTrV3GsEYNxqRhqWmE0o4 N3Ey2RRAhy xnm1P1YsAapcsJK+PC90YW TgSP97uBMxuDOsg6wdzWg3 ZqCbOFPtJOC0nWdyGVdkj2 FfXHPiZ26y bGFw (more content not included)... Normal [facility] BMPon 06-13-2021 Anion gap [Moles/Vol] 12 mmol/L Normal - [facility] Comment on above: Performed By: #### 2 [id number], [id number] ####[facility] [address] [place] [address] Calcium [Mass/Vol] 9.1 mg/dL Normal 8.9-11.1 [facility] Comment on above: Performed By: #### 2 [id number], [id number] ####[facility] [address] [place] [address] Chloride [Moles/Vol] 107 mmol/L Normal 101-111 [facility] Comment on above: Performed By: #### 2 [id number], [id number], [id number] ####[facility] [address] [place] [address] CO2 [Moles/Vol] 25 mmol/L Normal 21-31 [facility] Comment on above: Performed By: #### 2 [id number], [id number] ####[facility] [address] [place] [address] Creatinine [Mass/Vol] 0.8 mg/dL Normal 0.5-1.3 [facility] Comment on above: Performed By: #### 2 [id number], [id number] ####[facility] [address] [place] [address] Glucose [Mass/Vol] 90 mg/dL Normal 55-199 [facility] Comment on above: Result Comment: If t his glucose result represents a fasting glucose, interpretation should refer to the following reference range: 55-99 mg/dL Performed By: #### 2 [id number], [id number], [id number] ####[facility] [address] [place] [address] Potassium [Moles/Vol] 3.8 mmol/L Normal 3.5-5.3 [facility] Comment on above: Performed By: #### 2 854323, 6915341, 13015403 ####[facility] [address] [place] [address] Sodium [Moles/Vol] 140 mmol/L Normal 135-145 [facility] Comment on above: Performed By: #### 2 209798, 0580782, 34164900 ####[facility] [address] [place] [address] Urea nitrogen [Mass/Vol] 16 mg/dL Normal 5-21 [facility] Comment on above: Performed By: #### 2 333544, 3944170, 16337707 ####[facility] [address] [place] [address] Urea nitrogen/Creatinine [Mass ratio] 20 No Units Normal 10-20 [facility] Comment on above: Performed By: #### 2 795603, 7893404, 33990654 ####[address] [place] [address] CBC w/Indiceson 06-13-2021 Erythrocyte distribution width (RBC) [Ratio] 12.8 % Normal 10.9-14.2 [facility] Comment on above: Performed By: #### 2 843093, 5283305, 57509027 ####[facility] [address] [place] [address] Hematocrit (Bld) [Volume fraction] 38.7 % Normal 34.0-46.0 [facility] Comment on above: Performed By: #### 2 216286, 2399277, 53019549 ####[address] [address] Hemoglobin (Bld) [Mass/Vol] 13.2 g/dL Normal 12.0-16.0 [facility] Comment on above: Performed By: #### 2 617234, 9518984, 26087416 ####[facility] [address] [place] [address] MCH (RBC) [Entitic mass] 32.2 pg Normal 27.0-34.0 [facility] Comment on above: Performed By: #### 2 638456, 1518025, 35381108 ####[facility] [address] [place] [address] MCHC (RBC) [Mass/Vol] 34.0 g/dL Normal 31.4-36.0 [facility] Comment on above: Performed By: #### 2 306101, 6583413, 68542997 ####[address] [address] MCV (RBC) [Entitic vol] 94.7 fL Normal 80.0-100.0 [facility] Comment on above: Performed By: #### 2 411220, 9586349, 80543832 ####[address] [address] Platelet mean volume (Bld) [Entitic vol] 7.1 fL Normal 6.4-10.8 [facility] Comment on above: Performed By: #### 2 115744, 4629505, 90195311 ####[address] [address] Platelets (Bld) [#/Vol] 346.0 E9/L Normal 150.0-500.0 [facility] Comment on above: Performed By: #### 2 311892, 1327041, 37871456 ####[place] [address] RBC (Bld) [#/Vol] 4.1 E12/L Low 4.3-5.9 [facility] Comment on above: Performed By: #### 2 442557, 7551433, 78169920 ####[address] [address] WBC corrected for nucl RBC Auto (Bld) [#/Vol] 8.8 E9/L Normal 4.0-11.0 [facility] Comment on above: Performed By: #### 2 893403, 4995557, 74760697 ####[address] [address] Consent for Treatmenton 080 Consent for Treatment [id number]#1.0 0CD:127 Normal [facility] XR Chest 2 Viewson XR Chest 2 [...] FINAL REPORT Dictated: 06/13/2021 5:03 pm Elton oCoper M.D. Signed (Electronic Signature): 06/13/2021 5:03 pm Signed by: Elton Cooper M.D. Transcribed by: DENISE Technologist: DUNCAN Normal [facility] eGFRon 06-13-2021 GFR/1.73 sq M.predicted among blacks MDRD (S/P/Bld) [Vol rate/Area] mL/min/{1.73_m2} Normal >=59 [facility] Comment on above: Order Comment: Order added by Discern Expert. Result Comment: eGFR is race adjusted. AA=. Performed By: #### 2 762350, 8638234, 21941562 ####[facility] [address] [place] [address] GFR/1.73 sq M.predicted among non-blacks MDRD (S/P/Bld) [Vol rate/Area] mL/min/{1.73_m2} Normal >=59 [facility] Comment on above: Order Comment: Order added by Discern Expert. Result Comment: [employer]er mahad kidney disease could be indicated at eGFR's of less than 60 mL/min/1.73m2. Kidney failure is indicated at less than 15 mL/min/1.73m2. Performed By: #### 2 635491, 2046596, 34112538 ####[address] [place] [address] Physician Orderon 06-01-2021 Physician Order [id number]#1.0 0CD:127 Normal [facility] Physician Order [id number]#1. 00CD:127 Normal [facility] IntraOperative Documentson 0 01-14-2021 IntraOperative Documents [id number]#1. 00CD:127 Normal [facility] Coding Summary.on 01-12-2021 Coding Summary. CODING DATE: 01/12/2021 FINAL [facility] DSC STATUS: Home (Routine DC) PAYOR: Savage APC DESCRIPTION 5112 Level 2 Musculoskeletal Procedures ADMIT DX: REASON FOR VISIT DX: M19.041 Primary osteoarthritis, right hand FINAL DX: PRINCIPAL: M19.041 Primary osteoarthritis, right hand SECONDARY: K21.9 Gastro-esophageal reflux disease without esophagitis J44.9 Chronic obstructive pulmonary disease, unspecified PYMT PROC APC STAT DESCRIPTION DOCTOR NAME DATE 84308 5112 J1 Excision of lesion of Allan Lowery DO 01/07/2021 tendon sheath or joint capsule (eg, cyst, mucous cyst, or ganglion), hand or finger F6 Right hand, second digit 29268 Anesthesia for all Wilver Melvin Jr, DO [...] Revised Date Saved: 01/12/2021 03:47 pm Normal [facility] Progress Note-Physicianon Progress Note-Physician Patient: JOHANNA ENCINAS Age: 50 years Sex: Female : 1970 Associated Diagnoses: None Author: Wilver Melvin Jr, DO Postoperative Information Post Operative Note: Post Anesthesia Care Unit. Anesthetic utilized: General. Health Status Allergies: Allergic Reactions (Selected) Severity Not Documented Contrast Dye- Tachycardia. Problem list: All Problems COPD (chronic obstructive pulmonary disease) / SNOMED CT 74505928 / Confirmed GERD (gastroesophageal reflux disease) / SNOMED CT 332020687 / Confirmed Elevated triglycerides with high cholesterol / SNOMED CT 508330735 / Confirmed Vitamin D deficiency / SNOMED CT 57560204 / Confirmed Physical Examination Vital Signs 01/07/2021 [...] Heart Rate Apical 67 bpm (JAN 07 13:) Resp Rate 17 br/min (JAN 07 16:40) SBP 119 mmHg (JAN 07:) DBP 82 mmHg (JAN 07:) SpO2 96 % (JAN 07:) Pain assessment: Pain Assessment 01/07/2021 16:35 EST [...] and vomiting. Plan Transfer/ Discharge: Condition stable. [facility] Comment on above: Result Comment: Elec tronically Signed By: Wilver Melvin Jr, DO\love\Date and Time Signed: 01/12/21 08:02 EST H&P Updateon 01-11-2021 H&P Update [id number]#1. 00CD:127 [facility] H&P Update [id number]#1. 00CD:127 [facility] Main OR Intraoperative Recor don 01-11-2021 Main OR Intraoperative Record IntraOp Document Type FT Summary Primary Physician: Allan Lowery DO Finalized Date/Time: 01/11/21 14:23:47 Pt. Name: JOHANNA ENCINAS/Sex: 1970 Female Med Rec #: [id number] Physician: Allan Lowery DO Financial #: [id number] Pt. Type: A Room/Bed: Admit/Disch: 01/07/21 12:50:42 - 01/07/21 18:05:00 Institution: Case Times FT Entry 1 Patient Times In Room 01/07/21 15:58:00 Out Room 01/07/21 16:28:00 Procedure Times Start 01/07/21 16:17:00 Stop 01/07/21 16:23:00 Anesthesia Times Start 01/07/21 15:58:00 Stop 01/07/21 16:28:00 Last Modified By: Leonie Bullard RN 01/07/21 16:28:27 General Comments: 01/11/2021 Chart opened to review and send charges. Angie [employer]. Case Attendance FT Entry 1 Entry 2 Entry 3 Case Attendee Wilver Melvin Jr, DO, DO, Michael T McClain [employer], Yaima Puentes Role Performed Anesthesiologist of Surgeon [...] Case Attendee Leonie Bullard RN Role Performed [employer]er - Primary Time In 01/07/21 15:58:00 Time [...] (If Applicable) PreOp Antibiotic No Time Out Wilver Melvin Jr, DO, Given Participants Allan Lowery DO, McClain CST, Kimberly A, Hord RN, Abby Time Out Complete 01/07/21 16:10:00 [...] and tissue Entry 1 Skin Integrity Intact, [place], Warm, and Skin Abnormality No Dry Outcomes [...] Safety Str (more content not included)... Normal [facility] Coding Summary.on 01-10-2021 Coding Summary. CODING DATE: 01/10/[address] [facility] STATUS: Home (Routine DC) PAYOR: Savage [...] Sarmiento CphT Date Saved: 01/10/2021 12:05 pm [facility] Consent for Anesthesiaon Consent for Anesthesia [id number]#1.0 0CD:127 [facility] Discharge Instructionson Discharge Instructions [id number]#1.0 0CD:127 [facility] IntraOperative Documentson 0 01-10-2021 IntraOperative Documents [id number]#1.0 0CD:127 [facility] IntraOperative Documents [id number]#1.0 0CD:127 [facility] Preoperative Documentson Preoperative Documents [id number]#1.0 0CD:127 Normal [facility] Prescriptions/Work Noteson 0 01-10-2021 Prescriptions/Work Notes [id number]#1.0 0CD:127 Normal [facility] Operative Reporton Operative Report Date of Surgery: [...] preoperatively. Consent form signed and witnessed. PROCEDURE: Johanna is taken to the Operative Suite and [...] with skin CONDITION: The patient's condition satisfactory Allan Lowery D.O. crlee Dictated: 01/07/2021 #[id number] Typed: 01/08/2021 #[id number] cc: Waqas Villaseñor D.O. [facility] Comment on above: Result Comment: Elec tronically Signed By: Allan Lowery DO.br\Date and Time Signed: 01/09/21 07:06 EST Progress Note-Physicianon Progress Note-Physician Patient: JOHANNA ENCINAS Age: 50 years Sex: Female : [...] (chronic obstructive pulmonary disease) / SNOMED CT 72413718 / Confirmed GERD (gastroesophageal reflux disease) / SNOMED CT 297066043 / Confirmed Elevated triglycerides with high cholesterol / SNOMED CT 138262687 / Confirmed Vitamin D deficiency / SNOMED CT 24125662 / Confirmed Histories Past Medical History: No active or resolved past medical history items have been selected or recorded. Family History: No family history items have been selected or recorded. Procedure history: History of hysterectomy (7538589202). Hemorrhoidectomy (72161608). Extraction of wisdom tooth (093067551). Tonsillectomy and adenoidectomy (622906068). Multiple polyps removal of vocal cords (82260516). Social History Social & Psychosocial Habits Alcohol [...] results Radiology results ECG interpretation Condition Plan [place] [employer] (ASA) physical status classification: Class III. Anesthetic Preoperative Plan Anesthesia: General. . Anesthetic plan, risks, benefits, and alternatives discussed with the patient and/or family. Risks discussed: nausea, vomiting, headache, sore throat, dental injury, serious complications. Patient verbalized understanding. Communication: face to face with (patient 5 minutes, Pt educated on the importance of smoking cessation.). Normal [facility] Comment on above: Result Comment: Elec tronically Signed By: Wilver Melvin Jr, DO\.mac\Date and Time Signed: 01/09/21 11:58 EST Consent for Treatmenton Consent for Treatment [id number]#1.0 0CD:127 Normal [facility] H&P Updateon 01-07-2021 H&P Update [id number]. 00CD:127 Normal [facility] Main OR PACU I Recordon Main OR PACU I Record PACU Phase I Document Type FT Summary Primary Physician: Allan Lowery DO Finalized Date/Time: 01/07/21 17:11:06 Pt. Name: JOHANNA ENCINAS/Sex: 1970 Female Med Rec #: [id number] Physician: Allan Lowery DO Financial #: [id number] Pt. Type: A Room/Bed: Admit/Disch: 01/07/21 12:50:42 [...] By: Susy Cruz RN 01/07/21 17:11 Normal [facility] Main OR PACU II Recordon Main OR PACU II Record PACU Phase II Document Type FT Summary Primary Physician: Allan Lowery DO Finalized Date/Time: 01/07/21 19:30:58 Pt. Name: JOHANNA ENCINAS/Sex: 1970 Female Med Rec #: [id number] Physician: Allan Lowery DO Financial #: [id number] Pt. Type: A Room/Bed: [place] [address] Admit/Disch: 01/07/21 12:50:42 - Institution: Case Times [...] By: Dipti Ledbetter RN 01/07/21 19:30 Normal [facility] Monitor Recordon 01-07-2021 Monitor Record [id number]#1. 00CD:127 Normal [facility] Monitor Record [id number]#1. 00CD:127 Normal [facility] Inpatient Patient Summaryon 01-06-2021 Inpatient Patient Summary [address] [address] [facility] Clinical Discharge Instructions PERSON INFORMATION Name: JOHANNA ENCINAS [facility]#:[id number] PHYSICIANS Admitting Physician: Allan Lowery DO Attending Physician: Allan Lowery DO PCP: JUS SOLIS MD Discharge Diagnosis: Ganglion cyst of finger of right hand Comment: PATIENT EDUCATION INFORMATION Instructions: Medication Leaflets: Follow up: With: Address: When: Allan Lowery [address] [place], [place] [id number] Business (1) Comments: Keep scheduled appointment Type Location Start [facility] Surgery [facility] Surgical Services 01/07/2021 3:30 PM 01/07/2021 [...] 2 Puffs Inhalation every day. Comment: Normal [facility] Outpatient Surgery Discharge Instructionon 01-06-2021 Outpatient Surgery Discharge Instruction [facility] [address] [place], [place] [address] Patient Discharge Instructions PERSON INFORMATION Name: JOHANNA ENCINAS Date of : 1970 Current Date: 01/06/2021 13:05:53 PHYSICIANS Admitting Physician: Allan Lowery DO Discharge Diagnosis: Ganglion cyst of finger of right hand JOHANNA ENCINAS has been given the following list [...] Follow up: With: Address: When: Allan Lowery [address] [place], [place] [id number] [facility] (1) Comments: Keep scheduled appointment Type Location Start [facility] Surgery [facility] Surgical Services 01/07/2021 3:30 PM 01/07/2021 4:03 PM Confirmed Pharmacy Information: You may receive a survey from [employer] asking you to rate your care experience. Your feedback is important and will help us understand what we do well and how we can improve the quality of care we provide to you, your loved ones and our community. It?s an honor to serve you. Thank you for choosing [facility] HERE ARE THE MEDICATION CHANGES THAT OCCURRED [...] Inhalation every day. PATIENT EDUCATION INFORMATION Instructions: Normal [facility] Patient Education - Texton 0 01-06-2021 Patient Education - Text Normal [facility] Consent for Procedure/Surger yon 01-04-2021 Consent for Procedure/Surgery [id number]. 00CD:127 Normal [facility] Outside Recordson 01-04-2021 Outside Records [id number]. 00CD:127 Normal [facility] BUNon 12-31-2020 Urea nitrogen [Mass/Vol] 11 mg/dL Normal 5-21 [facility] Comment on above: Performed By: #### 1 [id number], 9915104, 3827912, 6341644, 6632819, 0211437 ####[facility] [address] [place] [address] CBC w/Indiceson 12-31-2020 Erythrocyte distribution width (RBC) [Ratio] 12.3 % Normal 10.9-14.2 [facility] Comment on above: Performed By: #### 1 [id number], 2870346, 7854153, 5106444, 4718487, 7025099 ####[place] [address] [place] [address] Hematocrit (Bld) [Volume fraction] 41.5 % Normal 34.0-46.0 [facility] Comment on above: Performed By: #### 1 8948975, 3025458, 3426619, 1062207, 8417055, 9448002 ####[address] [place] [address] Hemoglobin (Bld) [Mass/Vol] 14.1 g/dL Normal 12.0-16.0 [facility] Comment on above: Performed By: #### 1 3524476, 3717270, 4995250, 5694025, 0468211, 2477632 ####[place] [address] MCH (RBC) [Entitic mass] 31.5 pg Normal 27.0-34.0 [facility] Comment on above: Performed By: #### 1 5106059, 4547480, 9133887, 1931944, 6252097, 2240151 ####[address] [address] MCHC (RBC) [Mass/Vol] 34.0 g/dL Normal 31.4-36.0 [facility] Comment on above: Performed By: #### 1 8693264, 1138199, 1936729, 0210412, 6197131, 9087416 ####[address] [address] MCV (RBC) [Entitic vol] 92.8 fL Normal 80.0-100.0 [facility] Comment on above: Performed By: #### 1 7627041, 2354113, 0171072, 6879139, 5879488, 0477321 ####[address] [place] [address] Platelet mean volume (Bld) [Entitic vol] 7.5 fL Normal 6.4-10.8 [facility] Comment on above: Performed By: #### 1 4755127, 5804167, 5576960, 6037980, 3537175, 2847625 ####[facility] [address] [place] [address] Platelets (Bld) [#/Vol] 380.0 E9/L Normal 150.0-500.0 [facility] Comment on above: Performed By: #### 1 8778788, 8412722, 5759493, 7548998, 0700088, 4848173 ####[facility] [address] [place] [address] RBC (Bld) [#/Vol] 4.5 E12/L Normal 4.3-5.9 [facility] Comment on above: Performed By: #### 1 4964097, 4782590, 5409106, 8517943, 3743448, 7275119 ####[facility] [address] [place] [address] WBC corrected for nucl RBC Auto (Bld) [#/Vol] 6.6 E9/L Normal 4.0-11.0 [facility] Comment on above: Performed By: #### 1 2230362, 4356370, 8312862, 8311483, 8367535, 4555182 ####[facility] [address] [place] [address] Consent for Treatmenton 12-07 Consent for Treatment [id number] 0CD:127 Normal [facility] Creatinineon 12-31-2020 Creatinine [Mass/Vol] 0.7 mg/dL Normal 0.5-1.3 [facility] Comment on above: Performed By: #### 1 8869196, 1323224, 6272885, 5654742, 7604826, 2116226 ####[facility] [address] [place] [address] Glucoseon 12-31-2020 Glucose [Mass/Vol] 122 mg/dL Normal 55-199 [facility] Comment on above: Performed By: #### 1 2142893, 6418553, 7354573, 3198698, 6731997, 7164353 ####[facility] [address] [place] [address] Lyteson 12-31-2020 Anion gap [Moles/Vol] 14 mmol/L Normal 6-16 [facility] Comment on above: Performed By: #### 1 5480756, 6565748, 8065509, 9378197, 8249097, 0949284 ####[facility] [address] [place] [address] Chloride [Moles/Vol] 107 mmol/L Normal 101-111 [facility] Comment on above: Performed By: #### 1 2806486, 9285811, 6589401, 9788733, 7063093, 1444351 ####[facility] [address] [place] [address] CO2 [Moles/Vol] 21 mmol/L Normal 21-31 [facility] Comment on above: Performed By: #### 1 5223580, 7121464, 1513915, 7810678, 6416515, 4942242 ####[facility] [address] [place] [address] Potassium [Moles/Vol] 3.6 mmol/L Normal 3.5-5.3 [facility] Comment on above: Performed By: #### 1 3675005, 7425639, 0582108, 7412182, 8185442, 8849922 ####[facility] [address] [place] [address] Sodium [Moles/Vol] 138 mmol/L Normal 135-145 [facility] Comment on above: Performed By: #### 1 1817448, 5592577, 1534657, 9694975, 4442028, 0941295 ####[facility] [address] [place] [address] XR Chest 2 Viewson XR Chest 2 [...] Signed by: Luke Boyd M.D. Transcribed by: DENISE Technologist: Normal [facility] eGFRon 12-31-2020 GFR/1.73 sq M.predicted among blacks MDRD (S/P/Bld) [Vol rate/Area] mL/min/{1.73_m2} Normal >=59 [facility] Comment on above: Order Comment: Order added by Discern Expert. Result Comment: eGFR is race adjusted. AA=. Performed By: #### 1 7503187, 5481013, 4841689, 4951156, 8335442, 2863977 ####[facility] [address] [place] [address] GFR/1.73 sq M.predicted among non-blacks MDRD (S/P/Bld) [Vol rate/Area] mL/min/{1.73_m2} Normal >=59 [facility] Comment on above: Order Comment: Order added by Discern Expert. Result Comment: [employer] mahad kidney disease could be indicated at eGFR's of less than 60 mL/min/1.73m2. Kidney failure is indicated at less than 15 mL/min/1.73m2. Performed By: #### 1 9898628, 5879831, 0408414, 7823014, 6818469, 5131180 ####[facility] [address] [place] [address] Vital Signs Date Time Vital Sign Value Performing Clinician Blake cintron 08-18-2024 11:17040 Body height 170.2 cm Sweta Cortes NP Work Phone: [facility] 08-18-2024 11:17-0400 Body mass index (BMI) [Ratio] 34.46 kg/m2 Sweta Cortes NP Work Phone: [facility] 08-18-2024 11:17-0400 Body temperature 97.3 [degF] Sweta Lause RN CORRECTIONS Work Phone: [facility] 08-18-2024 11:17-0400 Body weight 99.79 kg Swtea Lause RN CORRECTIONS Work Phone: [facility] 08-18-2024 11:17-0400 Diastolic blood pressure 82 mm[Hg] Sweta Lause RN CORRECTIONS Work Phone: [facility] 08-18-2024 11:17-0400 Heart rate 111 /min Sweta Lause RN CORRECTIONS Work Phone: [facility] 08-18-2024 11:17-0400 Respiratory rate 16 /min Sweta Lause RN CORRECTIONS Work Phone: [facility] 08-18-2024 11:17-0400 SaO2% (BldA) [Mass fraction] 96 % Sweta Lause RN CORRECTIONS Work Phone: [facility] 08-18-2024 11:17-0400 Systolic blood pressure 138 mm[Hg] Sweta Lause RN CORRECTIONS Work Phone: [facility] 12-07-2023 10:01-0500 Body height 170.2 cm Serena Warchol RN CORRECTIONS Work Phone: [facility] 12-07-2023 10:01-0500 Body mass index (BMI) [Ratio] 36.09 kg/m2 Serena Warchol RN CORRECTIONS Work Phone: [facility] 12-07-2023 10:01-0500 Body temperature 96.8 [degF] Serena Warchol RN CORRECTIONS Work Phone: [facility] 12-07-2023 10:01-0500 Body weight 104.51 kg Serena Warchol RN CORRECTIONS Work Phone: [facility] 12-07-2023 10:01-0500 Diastolic blood pressure 78 mm[Hg] Serena Warchol RN CORRECTIONS Work Phone: [facility] 12-07-2023 10:01-0500 Heart rate 90 /min Serena Warchol RN CORRECTIONS Work Phone: [facility] 12-07-2023 10:01-0500 SaO2% (BldA) [Mass fraction] 98 % Serena Odell RN CORRECTIONS Work Phone: [facility] 12-07-2023 10:01-0500 Systolic blood pressure 124 mm[Hg] Serena Odell RN CORRECTIONS Work Phone: [facility] Healthcare Encounters Encounter Date Encounter Type Care Provider Facility Start: 08-21-2024 End: 08-21-2024 Orders Only Sweta R Lause RN CORRECTIONS Work Phone: [facility] Comment on above: Hot flashes (Primary Dx); Insomnia, unspecified type Start: 08-18-2024 End: 08-18-2024 Bamboo flowsheet Sweta R Lause RN CORRECTIONS Work Phone: [employer] [facility] Start: 08-18-2024 End: 08-18-2024 Bamboo flowsheet Sweta R Lause RN CORRECTIONS Work Phone: [facility] [employer] Start: 08-18-2024 End: 08-18-2024 Office outpatient visit 25 minutes Sweta R Lause RN CORRECTIONS Work Phone: [facility] [employer] Comment on above: Insomnia, unspecifie d type (Primary Dx); Snoring; Hypersomnolence; Elevated fasting glucose Start: 08-18-2024 End: 08-18-2024 ambulatory SWETA R LAUSE Not Available Start: 08-11-2024 End: 08-12-2024 Orders Only Sweta R Lause RN CORRECTIONS Work Phone: [facility] External Department Unsolicited Start: 06-06-2024 End: 06-06-2024 ambulatory SWETA R LAUSE Not Available Start: 03-10-2024 End: 03-10-2024 ambulatory BONIFACIO FRANCO Not Available Start: 03-03-2024 End: 03-03-2024 ambulatory EDDIE WENGERD Not Available Start: 02-28-2024 End: 02-28-2024 ambulatory EDDIE WENGERD Not Available Start: 02-25-2024 End: 02-25-2024 ambulatory JUAN PABLO JEFFERY Not Available Start: 02-18-2024 End: 02-18-2024 ambulatory EDDIE YUEN Not Available Start: 02-13-2024 End: 02-13-2024 ambulatory SERENA ODELL Not Available Start: 02-12-2024 End: 02-12-2024 ambulatory JUAN PABLO JEFFERY Not Available Start: 12-07-2023 End: 12-07-2023 Office outpatient visit 25 minutes Serena Odell RN CORRECTIONS Work Phone: [facility] Comment on above: Chronic obstructive pulmonary disease, unspecified COPD type (CMS/HCC) (Primary Dx); Vitamin D deficiency; Elevated triglycerides with high cholesterol (CMS/HCC); Vaginal candidiasis; Other chronic sinusitis; Non-recurrent acute serous otitis media of both ears Start: 12-07-2023 End: 12-07-2023 ambulatory SERENA CARTERSAIDA Not Available Start: 12-06-2023 Chart abstracting Serena Karen RN CORRECTIONS Work Phone: [facility] Start: 11-18-2023 End: 11-18-2023 ambulatory KARINA ANNE Not Available Start: 10-22-2023 End: 10-22-2023 ambulatory SERENA ALEX Not Available Start: 04-19-2023 End: 04-19-2023 Emergency department patient visit Juanjo Mtz Facility:[facility] Start: 09-07-2022 End: 09-08-[address] ADOLFO MANCERA Facility:[facility] Start: 08-18-2022 End: 08-18-[address] ADOLFO MANCERA Facility:[facility] Start: 10-20-2019 End: 10-20-2019 Departed Referred Jus Solis -Lab [facility] Start: 11-28-2018 End: 11-28-2018 Patient encounter procedure Jus Solis -XRay [address] Procedures Date Procedure Procedure Detail Performing Clinician Start: 08-11-2024 Complete blood count with white cell differential, automated Sweta Cortes RN CORRECTIONS Work Phone: Start: 08-11-2024 Comprehensive metabo lic panel Sweta Cortes RN CORRECTIONS Work Phone: Start: 08-11-2024 Lipid panel Sweta Cortes RN CORRECTIONS Work Phone: Start: 08-11-2024 SPECIMEN STATUS REPORT Sweta Cortes RN CORRECTIONS Work Phone: Start: 11-02-2023 Mammography Serena corral RN CORRECTIONS Work Phone: Start: 07-27-2021 Colonoscopy Serena corral RN CORRECTIONS Work Phone: Plan of Treatment Date Care Activity Detail Author Start: 07-27-2031 Screening for malign ant neoplasm of colon [facility] Start: 12-08-2024 End: 12-08-2024 Patient encounter procedure 12/08/2024 10:00 AM EST Office Visit [facility] [address] [place] [address] Sweta Cortes, DEMETRIUS [address] [place] [address] [facility] Start: 11-10-2024 End: 11-10-2024 Patient encounter procedure 11/10/2024 11:00 AM EST Office Visit [facility] [address] [place] [address] Sweta Cortes, DEMETRIUS [address] [place] [address] [facility] Start: 11-02-2024 Screening for malign ant neoplasm of breast Mammogram [facility] Start: 10-23-2024 End: 10-23-2024 Patient encounter procedure 10/23/2024 9:00 AM EST Office Visit [facility] [address] [place] [id number] Serena Alex PA [address] [place], [place] [id number] [facility] Start: 08-21-2024 End: 08-21-2025 Estradiol Estradiol Lab Routine Insomnia, unspecified type Hot flashes Expected: 08/21/2024 (Approximate), Expires: 08/21/2025 [facility] Work Phone: Comment on above: Expected: 08/21/2024 (Approximate), Expires: 08/21/2025 Start: 08-21-2024 End: 08-21-2025 Estrone Estrone Lab Routine Insomnia, unspecified type Hot flashes Expected: 08/21/2024 (Approximate), Expires: 08/21/2025 [facility] Comment on above: Expected: 08/21/2024 (Approximate), Expires: 08/21/2025 Start: 08-21-2024 End: 08-21-2025 Follicle stimulating hormone Follicle stimulating hormone Lab Routine Insomnia, unspecified type Hot flashes Expected: 08/21/2024 (Approximate), Expires: 08/21/2025 [facility] Comment on above: Expected: 08/21/2024 (Approximate), Expires: 08/21/2025 Start: 08-21-2024 End: 08-21-2025 Luteinizing hormone Luteinizing hormone Lab Routine Insomnia, unspecified type Hot flashes Expected: 08/21/2024 (Approximate), Expires: 08/21/2025 [facility] Comment on above: Expected: 08/21/2024 (Approximate), Expires: 08/21/2025 Start: 08-21-2024 End: 08-21-2025 Progesterone Progesterone Lab Routine Insomnia, unspecified type Hot flashes Expected: 08/21/2024 (Approximate), Expires: 08/21/2025 [facility] Comment on above: Expected: 08/21/2024 (Approximate), Expires: 08/21/2025 Start: 08-21-2024 End: 08-21-2025 Testosterone, free, total Testosterone, free, total Lab Routine Insomnia, unspecified type Hot flashes Expected: 08/21/2024 (Approximate), Expires: 08/21/2025 [facility] Comment on above: Expected: 08/21/2024 (Approximate), Expires: 08/21/2025 Start: 08-18-2024 End: 08-18-2024 Patient encounter procedure 08/18/2024 11:20 AM EDT Office Visit [facility] [address] [place] [phone] Sweta Cortes NP [address] [place] [phone] Arrived [facility] Comment on above: Arrived Start: 07-06-2024 Influenza vaccination Influenza Vacc ine (#1) [facility] Start: 06-06-2024 End: 06-06-2024 Patient encounter procedure 06/06/2024 10:00 AM EDT Office Visit [facility] [address] [place] [address] Serena Odell NP [address] [place] [address] [facility] Start: 01-04-2024 End: 01-04-2024 Patient encounter procedure 01/04/2024 8:00 AM EST Office Visit [facility] [address] [place] [address] Serena Odell NP [address] [place] [address] [facility] Start: 12-21-2023 Influenza vaccination Influenza Vacc ine (#1) [facility] Comment on above: Postponed from 07/06 (Patient Refused) Start: 12-07-2023 End: 12-07-2023 Patient encounter procedure 12/07/2023 10:00 AM EST Office Visit [facility] [address] [place] [address] Serena Odlel NP [address] [place] [address] [facility] Start: 07-06-2023 Influenza vaccination Influenza Vacc ine (#1) [facility] Start: 1970 [facility] Immunizations Immunization Date Immunization Notes Care Provider Fa cility 07-14-2024 influenza, injectabl e, madin pallavi canine kidney, preservative free Sweta Cortes RN CORRECTIONS Work Phone: [facility] 10-23-2022 zoster vaccine recombinant J essica Lause RN CORRECTIONS Work Phone: [facility] 10-12-2022 Pneumococcal Conjuga te PCV 20 Sweta Lause RN CORRECTIONS Work Phone: [facility] 08-21-2022 zoster vaccine recombinant J essica Lause RN CORRECTIONS Work Phone: [facility] 07-07-2022 Influenza, injectabl e, Madin Gates Canine Kidney, preservative free, quadrivalent Sweta Lause RN CORRECTIONS Work Phone: [facility] 07-07-2022 influenza virus vacc ine, unspecified formulation Serena Warchol RN CORRECTIONS Work Phone: [facility] 08-17-2021 Influenza, injectabl e, Madin Pallavi Canine Kidney, preservative free, quadrivalent Sweta Lause RN CORRECTIONS Work Phone: [facility] 07-16-2020 Seasonal trivalent influenza vaccine, adjuvanted, preservative free Sweta Lause RN CORRECTIONS Work Phone: [facility] 07-06-2020 influenza, seasonal, injectable Sweta Lause RN CORRECTIONS Work Phone: [facility] 07-30-2019 influenza, injectabl e, quadrivalent, contains preservative Sweta Lause RN CORRECTIONS Work Phone: [facility] 09-11-2017 pneumococcal polysaccharide vaccine, 23 valent Sweta Lause RN CORRECTIONS Work Phone: [facility] 04-09-2017 tetanus toxoid, redu bashir diphtheria toxoid, and acellular pertussis vaccine, adsorbed Sweta Lause RN CORRECTIONS Work Phone: [facility] 11-05-2016 pneumococcal polysaccharide vaccine, 23 valent Sweta Lause RN CORRECTIONS Work Phone: [facility] 09-01-2009 novel Influenza-H1N1 -09, live virus for nasal administration Sweta Lause RN CORRECTIONS Work Phone: [facility] Payers Date Payer Category Payer [facility] [employer] [id number] 2021 Unknown BCBS BCBS [id number] 2021-Present [phone] [id number] [place], [place] [address] [id number] 1971 Unknown [id number] 2.16.840.1.462845.3.579.2. 593 1971 Unknown [id number] 2.16.840.1.576607.3.579.2. 593 1971 Unknown [id number] 2.16.840.1.356314.3.579.2. 1259 1971 Unknown [id number] 2.16.840.1.729758.3.579.2. 1259 1971 Unknown [id number] 2.16.840.1.812541.3.579.2. 1259 1971 Unknown [id number] 2.16.840.1.943154.3.579.2. 1259 1971 Unknown [id number] 2.16.840.1.261651.3.579.2. 1259 1971 Unknown [id number] 2.16.840.1.048889.3.579.2. 1259 1971 Unknown [id number] 2.16.840.1.912002.3.579.2. 9 1971 Unknown [id number] 2.16.840.1.028365.3.579.2. 9 1971 Unknown [id number] 2.16.840.1.905614.3.579.2. 1258 1971 Unknown [id number] 2.16.840.1.065367.3.579.2. 1258 1971 Unknown [id number] 2.16.840.1.634920.3.579.2. 1258 1971 Unknown [id number] 2.16.840.1.543351.3.579.2. 1259 1959 Unknown [id number] Self-pay Self Pay [id number] Unknown Self Pay [id number] Unknown Self Pay [id number] Social History Date Type Detail Facility Start: 09-22-2019 Tobacco smoking status [facility] Smoker (finding) [facility] Start: 1970 Sex Assigned At Female [facility] Start: 05-05-1987 End: 06-06-2024 Tobacco smoking status [facility] Smokes tobacco daily [facility] Start: 05-05-1987 History of tobacco use Cigarette Smoker [facility] Start: 05-07-2023 End: 05-30-2024 Cigarettes smoked current (pack per day) - Reported 0.5 [facility] Start: 05-07-2023 End: 06-06-2024 Tobacco use and exposure Smokeless tobacco non-user [facility] Start: 11-26-2023 Alcohol intake Current drinker of alcohol (finding) [facility] Start: 04-19-2023 End: 05-30-2024 Humiliation, Afraid, Rape, and Kick questionnaire [HARK] [facility] Within the last year , have you been afraid of your partner or ex-partner? No [facility] Do you belong to any clubs or organizations such as episcopal groups, unions, fraternal or athletic groups, or school groups? Yes [facility] Are you now , , , , never or living with a partner? [facility] How often to you hav e a drink containing alcohol? 2-4 times a month [facility] How many standard dr inks containing alcohol do you have on a typical day? 3 or 4 [facility] How often do you hav e 6 or more drinks on 1 occasion? Less than monthly [facility] How hard is it for y ou to pay for the very basics like food, housing, medical care, and heating Not very hard [facility] Do you feel stress - tense, restless, nervous, or anxious, or unable to sleep at night because your mind is troubled all the time - these days [OSQ] Only a little [facility] (I/We) worried mehdi er (my/our) food would run out before (I/we) got money to buy more. Never true [facility] In the past 12 month s, has lack of transportation kept you from medical appointments or from getting medications? No [facility] Start: 05-07-2023 Tobacco Comment 6-10 cigarettes smokes per day; Thinking about quitting [facility] Start: 05-07-2023 Alcohol Comment caffeine intake: 2-4 cups per day of soda/pop/chocolate [facility] Start: 01-17-2023 Gender identity Identifies as female gender (finding) [facility] Start: 04-19-2023 Sexual orientation Heterosexual (finding) [facility] Start: 12-07-2023 End: 08-18-2024 Alcohol intake Ex-drinker (finding) [facility] How many standard dr inks containing alcohol do you have on a typical day? 1 or 2 [facility] How often do you hav e 6 or more drinks on 1 occasion? Monthly [facility] Goals Date Patient Goal Desired Activity /State History of Present illness Narrative 08-18-2024 Sweta Cortes NP - 08/18/2024 11:20 AM EDT Note Date & Type Note Facility 08-18-2024 History of Presen t illness Narrative Family Medicine Note Subjective: Chief Complaint: CIM HPI: Johanna Encinas presents to the office today for chronic illness management visit. At her last office visit she was started on hydroxyzine to assist with sleep. The patient reports that she did not feel that the hydroxyzine helped much with sleep and is requesting a different agent to try. Additionally, she did complete lab work which she would like to review today. She denies further complaints or concerns at this time. Current Outpatient Medications: aspirin (Vazalore) 81 MG capsule, Take by mouth., Disp: , Rfl: cetirizine (ZyrTEC ALLERGY) 10 MG tablet, , Disp: , Rfl: ergocalciferol (Vitamin D2) 1.25 MG (43195 UT) capsule, Take 1 capsule (1.25 mg) by mouth 1 (one) time per week, Disp: 4 capsule, Rfl: 5 esomeprazole (NexIUM) 20 MG packet, , Disp: , Rfl: fenofibrate (Triglide) 160 MG tablet, Take 1 tablet (160 mg) by mouth Daily, Disp: 90 tablet, Rfl: 1 tiotropium (Spiriva Respimat) 2.5 MCG/ACT inhaler, Inhale 2 puffs Daily, Disp: 12 g, Rfl: 3 eszopiclone (Lunesta) 1 MG tablet, Take 1 tablet (1 mg) by mouth as needed at bedtime for sleep Take immediately before bedtime, Disp: 30 tablet, Rfl: 2 fluticasone (Flonase Allergy Relief) 50 MCG/ACT nasal spray, Administer 1 spray into each nostril in the morning and 1 spray before bedtime. Do all this for 14 days., Disp: , Rfl: metFORMIN (Glucophage) 500 MG tablet, Take 1 tablet (500 mg) by mouth in the morning. Take with meals., Disp: 30 tablet, Rfl: 11 No current facility-administered medications for this visit. Medical History: Past Medical History: Diagnosis Date Allergies Anemia Carvajal's esophagus 2011 Bronchitis Chest pain 2013 Chronic sinus infection COPD (chronic obstructive pulmonary disease) ([facility]) GERD (gastroesophageal reflux disease) Hemorrhoids 2012 High triglycerides ([facility]) Nondependent tobacco use disorder Osteopenia Palpitations 2014 Pneumonia [place] teeth extracted Allergies: No Known Allergies Social History: Tobacco Use: Tobacco Use: High Risk (08/18/2024) Patient History Smoking Tobacco Use: Every Day Smokeless Tobacco Use: Never Passive Exposure: Not on file Objective: Vitals: 08/18/24 1117 BP: 138/82 Pulse: (!) 111 Resp: 16 Temp: 97.3 F TempSrc: Temporal SpO2: 96% Weight: 220 lb Height: 5' 7 Physical Exam Vitals and nursing note reviewed. Constitutional: General: She is not in acute distress. Appearance: Normal appearance. She is not ill-appearing. HENT: Head: Normocephalic and atraumatic. Right Ear: Tympanic membrane, ear canal and external ear normal. Left Ear: Tympanic membrane, ear canal and external ear normal. Nose: Nose normal. Mouth/Throat: Mouth: Mucous membranes are moist. Eyes: Extraocular Movements: Extraocular movements intact. Pupils: Pupils are equal, round, and reactive to light. Cardiovascular: Rate and Rhythm: Normal rate. Pulses: Normal pulses. Heart sounds: No murmur heard. Pulmonary: Effort: Pulmonary effort is normal. Breath sounds: No wheezing, rhonchi or rales. Abdominal: General: Bowel sounds are normal. There is no distension. Tenderness: There is no abdominal tenderness. Musculoskeletal: General: Normal range of motion. Cervical back: Normal range of motion. Skin: General: Skin is warm and dry. Neurological: General: No focal deficit present. Mental Status: She is alert and oriented to person, place, and time. Psychiatric: Mood and Affect: Mood normal. Behavior: Behavior normal. Judgment: Judgment normal. Assessment: Assess/Plan Problem List Items Addressed This Visit Insomnia - Primary Relevant Medications eszopiclone (Lunesta) 1 MG tablet 1) Cognitive behavioral therapy is beneficial in identifying the underlying cause of insomnia. 2) Sleep hygiene and relaxation techniques. Sleep hygiene involves the development of habits conducive to sleep, such as maintaining regular bedtimes and rise times, avoiding daytime naps, avoiding alcohol and electronic devices before bedtime, and avoiding caffeine. Progressive relaxation therapy involves the tensing and relaxation of muscles systematically from head to toe. Guided imagery and meditation instructs you how to replace anxiety-ridden thoughts with pleasant, restful imagery. Music interventions, notably music-associated relaxation and listening to music, have been reported to improve sleep for adults with insomnia unrelated to underlying health conditions. 3) No blue screens an hour prior to lying down. Patient advised to take medication as directed, and to call office if no relief occurs. 4) Follow up as discussed to assess medication efficacy. OARRS reviewed. Avoiding mixing hypnotics with other controlled substances, muscle relaxers, alcohol and drugs as the risk for overdose increases substantially. Patient verbalized understanding and will attempt to do as instructed. Other Visit Diagnoses Snoring Hypersomnolence Elevated fasting glucose Relevant Medications metFORMIN (Glucophage) 500 MG tablet She was noted to have elevated fasting glucose on her lab work. We did discuss the benefits of starting Metformin to assist with insulin resistance in addition to possible weight loss. At this time she would like this sent to her pharmacy. Encouraged patient to continue working on lifestyle modifications with diet and exercise. Care plan was discussed with the patient today and reviewed changes to medications as well as A1c goals. Patient is to call with any questions or concerns. Patient voices understanding as well as risk for diabetes related complications if good glucose control is not obtained Follow-up: Follow up in about 3 months (around 11/18/2024) for Insomnia . documented in this encounter [facility] History of Present illness Narrative 12-07-2023 Serena Odell NP - 12/07/2023 10:00 AM EST Note Date & Type Note Facility 12-07-2023 History of Presen t illness Narrative SUBJECTIVE Johanna Encinas is a 53 y.o. female who presents with complaints of right sided jaw pain with swelling, bilateral ear pain, sinus pressure, headaches, and dizziness. She was seen by MARY on 11/18/22 and was diagnosed with sinusitis. She was given steroid and Augmentin which she feels did not resolve her symptoms. Patient also states that she has a yeast infection from taking the ATB. CURRENT MEDICATIONS Current Outpatient Medications: aspirin (Vazalore) 81 MG capsule, Take by mouth., Disp: , Rfl: cetirizine (ZyrTEC ALLERGY) 10 MG tablet, , Disp: , Rfl: esomeprazole (NexIUM) 20 MG packet, , Disp: , Rfl: Multiple Vitamin (Multi Vitamin Daily) tablet, 1 (one) time each day at the same time., Disp: , Rfl: cholecalciferol (Vitamin D-3) 50 MCG (2000 UT) capsule, Take 2,000 Units by mouth in the morning., Disp: , Rfl: ergocalciferol (Vitamin D2) 1.25 MG (33612 UT) capsule, Take 1 capsule (1.25 mg) by mouth 1 (one) time per week, Disp: 4 capsule, Rfl: 5 fenofibrate (Tricor) 145 MG tablet, Take 1 tablet (145 mg) by mouth in the morning., Disp: 90 tablet, Rfl: 1 fluconazole (Diflucan) 200 MG tablet, Take 1 tablet (200 mg) by mouth in the morning for 7 days., Disp: 7 tablet, Rfl: 0 fluticasone (Flonase Allergy Relief) 50 MCG/ACT nasal spray, Administer 1 spray into each nostril in the morning and 1 spray before bedtime. Do all this for 14 days., Disp: , Rfl: levoFLOXacin (Levaquin) 750 MG tablet, Take 1 tablet (750 mg) by mouth in the morning for 10 days., Disp: 10 tablet, Rfl: 0 tiotropium (Spiriva Respimat) 2.5 MCG/ACT inhaler, Inhale 2 puffs in the morning., Disp: 12 g, Rfl: 1 Current Facility-Administered Medications: triamcinolone acetonide (Kenalog-40) injection 40 mg, 40 mg, Intramuscular, Once, Serena Odell NP RECENT VITAL SIGNS 07/07/2022 12:00 PM 01/04/2023 12:00 PM 02/07/2023 12:00 PM 04/19/2023 5:48 PM 10/22/2023 1:13 PM 11/18/2023 11:15 AM 12/07/2023 10:01 AM Vitals BMI 34.3 kg/m2 35.32 kg/m2 35.58 kg/m2 36.05 kg/m2 35.77 kg/m2 36.09 kg/m2 BSA (m2) 2.17 m2 2.2 m2 2.21 m2 2.22 m2 2.22 m2 2.23 m2 Systolic 110 106 128 138 128 120 124 Diastolic 80 80 72 78 82 88 78 Heart Rate 86 88 90 SpO2 98 % 98 % 98 % Temp 97.5 F 97.3 F 96.8 F Height (in) 5' 7 5' 7 5' 7 5' 7 5' 7 Weight (lb) 219 225.5 227.2 230.2 228.4 230.4 Visit Report Report Report Report Report OBJECTIVE Physical Exam Vitals and nursing note reviewed. Constitutional: Appearance: She is normal weight. She is ill-appearing. HENT: Head: Normocephalic and atraumatic. Right Ear: Ear canal and external ear normal. A middle ear effusion is present. Left Ear: Ear canal and external ear normal. A middle ear effusion is present. Nose: Nose normal. Mouth/Throat: Mouth: Mucous membranes are moist. Eyes: Pupils: Pupils are equal, round, and reactive to light. Cardiovascular: Rate and Rhythm: Normal rate and regular rhythm. Pulses: Normal pulses. Heart sounds: Normal heart sounds. Pulmonary: Effort: Pulmonary effort is normal. Breath sounds: Normal breath sounds. Abdominal: General: Bowel sounds are normal. Palpations: Abdomen is soft. Musculoskeletal: General: Normal range of motion. Cervical back: Normal range of motion. Lymphadenopathy: Head: Right side of head: Preauricular adenopathy present. Skin: General: Skin is warm and dry. Capillary Refill: Capillary refill takes less than 2 seconds. Neurological: General: No focal deficit present. Mental Status: She is alert and oriented to person, place, and time. Psychiatric: Mood and Affect: Mood normal. ASSESSMENT/PLAN Diagnoses and all orders for this visit: Chronic obstructive pulmonary disease, unspecified COPD type (CMS/HCC) - tiotropium (Spiriva Respimat) 2.5 MCG/ACT inhaler; Inhale 2 puffs in the morning. Vitamin D deficiency - ergocalciferol (Vitamin D2) 1.25 MG (81948 UT) capsule; Take 1 capsule (1.25 mg) by mouth 1 (one) time per week Elevated triglycerides with high cholesterol (CMS/HCC) - fenofibrate (Tricor) 145 MG tablet; Take 1 tablet (145 mg) by mouth in the morning. Vaginal candidiasis - fluconazole (Diflucan) 200 MG tablet; Take 1 tablet (200 mg) by mouth in the morning for 7 days. Other chronic sinusitis - levoFLOXacin (Levaquin) 750 MG tablet; Take 1 tablet (750 mg) by mouth in the morning for 10 days. Non-recurrent acute serous otitis media of both ears - fluticasone (Flonase Allergy Relief) 50 MCG/ACT nasal spray; Administer 1 spray into each nostril in the morning and 1 spray before bedtime. Do all this for 14 days. FOLLOW-UP Follow up in about 6 months (around 06/06/2024) for Next scheduled follow-up: YANNA/WSoila . documented in this encounter [facility] Instructions 12-07-2023 Patient Instructions Note Date & Type Note Facility 12-07-2023 Instructions Serena Odell NP - 12/07/2023 10:00 AM EST PATIENT EDUCATION: COPD Possible complications of COPD include increased risk of respiratory failure, hospitalization and . COPD management goals are to maintain a healthy weight with a BMI of less than 26, prevent future hospitalizations by using your medications as prescribed, and avoid environments with smoke exposure. It is important to increasing activity levels, maintain compliance of medications, and following a healthier diet. VITAMIN D DEFICIENCY Take medication as directed. Encouraged to obtain 20 minutes of direct sunlight daily during peak hours of sunlight. Consume food sources high in Vitamin D. Repeat labs as instructed. HLD Reviewed most recent lipid panel or ordered new labs if needed. It is important to maintain LDL at specified goal. The risks associated with hyperlipidemia including stroke and heart attack. Take medications as directed. Dietary modifications include decreasing red meat consumption, decreasing alcohol consumption, avoiding fried fatty foods and cakes, cookies, and sweets. You are encouraged to increase fiber in your diet and eat a diet rich in omega-3. You are encouraged to exercise at least 150 minutes weekly. Barriers to the plan of care have been addressed. Obtain labs as directed and call our office if you have not received the lab results within one week. Follow up as directed. Patient has been given a copy of the plan of care. OM WITH EFFUSION There is fluid behind your tympanic membrane with no active signs of infection. Explained to patient antibiotics are not indicated as there is no active infection and this could take 4-6 weeks to resolve fully. May use Flonase or over the counter antihistamine to help dry up secretions. Instructed to notify office immediately if patient begins to experience and sharp ear pain or fevers. Patient verbalizes understanding. ATB 1) Take antibiotic as prescribed and finish all antibiotics as directed. 2) Yogurt or daily probiotic supplement recommended during the duration of antibiotic treatment. 3) Change your toothbrush 24 hours after starting the antibiotic. documented in this encounter [facility] Clinical Note 06-28-2021 Note Date & Type Note Facility 06-28-2021 Note Echocardiology Procedure Exam Date/Time Accession # Ordering DrKrystian ECG Stress Exercise 06/22/2021 09:08 EDT [id number] SERENA CROWDER NP CPT code 42210 Reason for Exam (ECG Stress Exercise) R53.83 [...] (Electronic Signature): 06/28/2021 1:38 pm Signed by: Morgan HUMPHREY, Dony Carmona Transcribed by: maria dolores Technologist: CAR[facility] History and physical note 01-04-2021 Note Date & Type Note Facility 01-04-2021 Note [id number] [facility] Evaluation note Note Date & Type Note Facility Evaluation note Diagnosis Chronic obstructive pulmonary disease, unspecified COPD type ([facility])- Primary Vitamin D deficiency Elevated triglycerides with high cholesterol ([facility]) Mixed hyperlipidemia Vaginal candidiasis Candidiasis of vulva and vagina Other chronic sinusitis Non-recurrent acute serous otitis media of both ears documented in this encounter [facility] Evaluation note Note Date & Type Note Facility Evaluation note Diagnosis Insomnia, unspecified type- Primary Snoring Other dyspnea and respiratory abnormality Hypersomnolence Hypersomnia, unspecified Elevated fasting glucose Impaired fasting glucose documented in this encounter [facility] Evaluation note Note Date & Type Note Facility Evaluation note Diagnosis Hot flashes- Primary Insomnia, unspecified type documented in this encounter [facility] Advance Directives Advance Directive Response Recorded Date/ Time Advance Directives No December 03, 2017 10:50am Chief Complaint and Reason for Visit Chief Complaint Dysphonia Assessments No Assessments Information Available Family History Relationship Condition Age at Onset Recorded Date/T hiram Not Specified Malignant neoplasm of tongue Unknown Arthritis Unknown family member Cerebral aneurysm Unknown sister Migraine headache Unknown Summary Purpose Additional Source Comments INFORMATION SOURCE (unrecogn ized section and content) DATE CREATED AUTHOR 10/05/2021 [facility] DATE CREATED AUTHOR AUTHOR'S ORGANIZ ATION 04/15/2022 [facility] DATE CREATED AUTHOR AUTHOR'S ORGANIZ ATION 07/06/2022 [facility] dical Specialist DATE CREATED AUTHOR AUTHOR'S ORGANIZ ATION 09/11/2022 [facility] DATE CREATED AUTHOR AUTHOR'S ORGANIZ ATION 04/19/2023 [facility] DATE CREATED AUTHOR AUTHOR'S ORGANIZ ATION 08/20/2024 [facility] dical Specialists EPIC Care Teams (unrecognized sec tion and content) Keypuncher Relationship Specialty Start Date End Date Ramona Hudson NP [address] [place] [address] PCP - [facility] 02/03/21 Jus Solis MD [address] [place] [address] PCP - General Family Medicine 04/19/23 Serena Odell NP [address] [place] [address] Nurse Practitioner Family Medicine 04/19/23 Sweta Cortes NP [address] [place] [address] Nurse Practitioner Pulmonary Disease 04/19/23 Keypuncher Relationship Specialty Start Date End Date Ramona Hudson NP [address] [place] [address] PCP - [facility] 02/03/21 Jus Solis MD [address], [facility] PCP - General Family Medicine 04/19/23 Serena Odell NP [address] [place] [id number] Nurse Practitioner Family Medicine 04/19/23 Sweta Cortes NP [address] [place] [phone] Nurse Practitioner Pulmonary Disease 04/19/23 Keypuncher Relationship Specialty Start Date End Date Jus Solis MD [address] [place] [id number] PCP - General Family Medicine 04/19/23 Serena Odell NP [address] [place] [id number] PCP - [facility] 07/06/24 Serena Odell NP [address] [place] [id number] Nurse Practitioner Family Medicine 04/19/23 Sweta Cortes NP [address] [place] [id number] Nurse Practitioner Pulmonary Disease 04/19/23 Keypuncher Relationship Specialty Start Date End Date Jus Solis MD [address] [place] [address] PCP - General Family Medicine 04/19/23 Serena Odell NP [address] [place] [address] PCP - [facility] 07/06/24 Serena Odell NP [address] [place] [id number] Nurse Practitioner Family Medicine 04/19/23 Sweta Cortes NP [address] [place] [phone] Nurse Practitioner Pulmonary Disease 04/19/23 Keypuncher Relationship Specialty Start Date End Date Jus Solis MD [address] [place] [id number] PCP - General Family Medicine 04/19/23 Serena Odell NP [address] [facility] PCP - [facility] 07/06/24 Serena Odell NP [address] [place] [address] Nurse Practitioner Family Medicine 04/19/23 Sweta Cortes NP [address] [place] [phone] Nurse Practitioner Pulmonary Disease 04/19/23 Keypuncher Relationship Specialty Start Date End Date Jus Solis MD [address] [place] [address] PCP - General Family Medicine 04/19/23 Serena Odell NP [address] [place] [address] PCP - [facility] 07/06/24 Serena Odell NP [address] [place] [address] Nurse Practitioner Family Medicine 04/19/23 Sweta Cortes NP [address] [place] [address] Nurse Practitioner Pulmonary Disease 04/19/23 FOR RECORDS PERTAINING TO PATIENTS WHO ARE [...] BE BASED ON THE PRIMARY CLINICAL RECORDS. [employer] [facility]. provides no warranty or guarantee of the accuracy or completeness of information in this document.
[2024-11-02 09:07] LABS: Age Gdln ACOG Testing Note (.); HPV Aptima Negative (Negative); IGP, Aptima HPV, rfx 16/18,45 Note (.)
== END 2024-10-23 19:04 | disposition home or self-care (01) ==
LOC: LAB 19:03
PROVIDERS: Visit Provider Physician Assistant
DX: Z01.419 Encounter for gynecological examination (general) (routine) without abnormal findings (principal)
CPT/HCPCS: 87624; 88175

== ENCOUNTER 2024-11-03 07:57 | Outpatient (OUT) | payer BC, SELFPAY ==
--- NOTE | 2024-11-03 08:00 | MM_ITS ---
Patient Name: MARGRET ENCINAS MR#: [id number] : 1970 Exam Date: 11/03/2024 Ordering Doctor: AJIT Velasquez . RADIOLOGY REPORT PROCEDURE: MM TOMOSYNTHESIS SCREENING BI COMPARISON: MM TOMOSYNTHESIS SCREENING BI, 11/02/2023. MG MAMM SCREEN 3D ANA CAD, 09/07/2022. MG MAMM SCREEN 3D ANA CAD, 09/02/2021. MG MAMM ANA SCRN W CAD DIG, 01/27/2014. INDICATIONS: Screening Calculator Name NCI Breast Cancer Risk Assessment Tool 5 Year Breast Cancer Risk 2.30% Lifetime Breast Cancer Risk 16.80% Personal Breast Cancer No Personal Ovarian Cancer No Treatments None Family Cancers Aunt-maternal with pancreatic cancer at age 62; Grandmother-maternal with pancreatic cancer at age ~85; Uncle-maternal with pancreatic/liver cancer at age ~65. LOCATION: [facility] BREAST COMPOSITION: There are scattered areas of fibroglandular density. FINDINGS: DIAGNOSTIC CATEGORY 2--BENIGN FINDING: RIGHT BREAST: No significant suspicious finding. No significant change has occurred. LEFT BREAST: No significant suspicious finding. Scattered benign-appearing nodules are present. No significant change has occurred. RECOMMENDATIONS: ROUTINE MAMMOGRAM AND CLINICAL EVALUATION IN 12 MONTHS. PLEASE NOTE: A NORMAL MAMMOGRAM DOES NOT EXCLUDE THE POSSIBILITY OF BREAST CANCER. A CLINICALLY SUSPICIOUS PALPABLE LUMP SHOULD BE BIOPSIED. Dictated by: Thompson Martin M.D. on 11/03/2024 at 16:22 Approved by: Thompson Martin M.D. on 11/03/2024 at 16:25
--- OUTSIDE RECORDS SUMMARY | 2024-11-03 08:19 | XMS_ITS | CCD ---
Author Organization [facility] Care Team Providers Care Food Scientist Name Role Phone Jus Solis Primary Care [...] Unavailable Solis, Jus Primary Care Unavailable Kiepert BILL POSTER INSTALLER, Ramona A Unavailable [phone] Jus Solis MD Primary Care Provider Warchol BILL POSTER INSTALLER, Serena Unavailable Lause BILL POSTER INSTALLER, Sweta R Unavailable Lause BILL POSTER INSTALLER, Sweta R Unavailable Warchol BILL POSTER INSTALLER, Serena Unavailable KARINA ANNE Attending Unavailable WARCHOL, SERENA Attending Unavailable GUNDLACH, JUAN PABLO D Attending Unavailable WARCHOL, SERENA Referring Unavailable WARCHOL, SERENA Referring Unavailable WENGERD, EDDIE Attending Unavailable WARCHOL, SERENA Referring Unavailable GUNDLACH, JUAN PABLO D Attending Unavailable WARCHOL, SERENA Referring Unavailable WENGERD, EDDIE Attending Unavailable WARCHOL, SERENA Referring Unavailable WENGERD, EDDIE Attending Unavailable WARCHOL, SERENA Referring Unavailable BONIFACIO FRANCO Attending Unavailable WARCHOL, SERENA Referring Unavailable LAUSE, SWETA R Attending Unavailable LAUSE, SWETA R Attending Unavailable ABI, SERENA Attending Unavailable Unavailable Unavailable Unavailable Allergies Allergy Classification Reported Allergen(s) Allergy Type Date of Onset Reaction(s) Facility (1 source) Iodine (And Iodine Containting Drugs) Drug allergy (disorder) 5 [facility] Repository (1 source) Iodine Drug Allergy [...] aspirin 81 mg delayed release oral tablet (13 sources) Platelet Aggregation Inhibitor, Nonsteroidal Anti-inflammatory Drug Start: 09-22-2019 take 81 mg by mouth once daily Aspirin Active 81 MG Oral Daily September 22, 2019 3:02pm aspirin (Vazalor e) 81 MG capsule Take by mouth. Active cetirizine hydrochloride 10 mg oral tablet (12 sources) Histamine-1 Receptor Antagonist Start: 11-05-2016 cetirizine (ZyrTEC ALLERGY) 10 MG tablet 11/05/2016 Active cholecalciferol 0.05 mg oral capsule (2 sources) Vitamin D take 1 capsule by mouth in the morning cholecalciferol (Vitamin D-3) 50 MCG (2000 UT) capsule Take 2,000 Units by mouth in the morning. 0 Active ergocalciferol 1.25 mg oral capsule (15 sources) Provitamin D2 Compound Start: 06-06-2024 End: 12-03-2024 take 1 capsule by mouth every week ergocalciferol (Vitamin D2) 1.25 MG (95547 UT) capsule Indications: Vitamin D deficiency Take 1 capsule (1.25 mg) by mouth 1 (one) time per week 4 capsule 5 06/06/2024 12/03/2024 Active Start: 10-04-2023 End: 06-04-2024 take 1 capsule by mouth every week ergocalciferol (Vitamin D2) 1.25 MG (88603 UT) capsule Indications: Vitamin D deficiency Take 1 capsule (1.25 mg) by mouth 1 (one) time per week 4 capsule 5 12/07/2023 06/04/2024 Active Start: 09-22-2019 take 98836 [IU] by m outh every week Ergocalciferol (Vitamin D2) Active 83444 UNIT Oral every week September 22, 2019 3:02pm esomeprazole 20 mg delayed release oral capsule (13 sources) Proton Pump Inhibitor Start: 09-22-2019 take 40 mg by mouth once daily Esomeprazole Magnesium Active 40 MG Oral Daily September 22, 2019 3:02pm esomeprazole (Ne xIUM) 20 MG packet Active eszopiclone 1 mg oral tablet (7 sources) Start: 08-18-2024 End: 11-16-2024 eszopiclone (Lunesta) 1 MG tablet Indications: Insomnia, unspecified type Take 1 tablet (1 mg) by mouth as needed at bedtime for sleep Take immediately before bedtime 30 tablet 2 08/18/2024 11/16/2024 Active fenofibrate 160 mg oral tablet (15 sources) Peroxisome Proliferator Receptor alpha Agonist Start: [...] propionate 0.05 mg/actuat metered dose nasal spray (16 sources) Corticosteroid Start: 04-19-2023 End: 12-21-2023 take [...] 3:17pm hydrOXYzine hydrochloride 25 mg oral tablet (9 sources) Antihistamine Start: 08-21-2024 End: 11-19-2024 hydrOXYzine [...] Active metFORMIN hydrochloride 500 mg oral tablet (7 sources) Biguanide Start: 08-18-2024 End: 08-18-2025 take [...] 10 actuat tiotropium 0.0025 mg/actuat inhalation spray (15 sources) Anticholinergic Start: 06-06-2024 End: 06-06-2025 take [...] halation once daily in the morning Tiotropium [place] Active 2 PUFF Inhalation Every morning September [...] Episodic/Chronic Chronic obstructive pulmonary disease and bronchiectasis (20 sources) Acute exacerbation of chronic obstructive airways disease; Translations: [Chronic obstructive pulmonary disease with (acute) exacerbation] Onset: 0 11-12-2023 Chronic Diabetes mellitus without complication (2 sources) Hyperglycemia; Translations: [Impaired fasting glucose] 08-18-2024 Episodic Disorders of lipid metabolism (20 sources) Mixed hypercholesterolemia and hypertriglyceridemia; Translations: [Mixed hyperlipidemia] Onset: 6 11-12-2023 Chronic Diverticulosis and diverticulitis (20 sources) Diverticulosis of colon; Translations: [Diverticulosis of large intestine without perforation or abscess without bleeding] Onset: 7 11-12-2023 Chronic Esophageal disorders (20 sources) Carvajal's esophagus; Translations: [Carvajal's esophagus without dysplasia] Onset: 6 11-12-2023 Chronic Immunizations and screening for infectious disease (1 source) Encounter for screening for human papillomavirus (HPV); Translations: [ENC SCREENING HUMAN PAPILLOMAVIRUS] Onset: 2 Episodic Mycoses (2 sources) Candidiasis of vagina; Translations: [Vaginal candidiasis] 12-07-2023 Episodic Nutritional deficiencies (14 sources) Vitamin D deficiency; Translations: [Vitamin D deficiency, unspecified] Onset: 9 11-12-2023 Chronic Osteoarthritis (12 sources) Arthritis of finger of right hand; Translations: [Primary osteoarthritis, right hand] Onset: 1 11-12-2023 Chronic Other liver diseases (12 sources) Steatosis of liver; Translations: [Fatty (change of) liver, not elsewhere classified] Onset: 1 11-12-2023 Chronic Other lower respiratory disease (2 sources) Snoring; Translations: [Snoring] 08-18-2024 Episodic Other nervous system disorders (3 sources) Carpal tunnel syndrome; Translations: [Carpal tunnel syndrome, left upper limb] Onset: 4 11-12-2023 Chronic Other nervous system disorders (9 sources) Carpal tunnel syndrome of left wrist; Translations: [Carpal tunnel syndrome, left upper limb] Onset: 4 11-12-2023 Chronic Other nutritional; endocrine; and metabolic disorders (12 sources) Obese class II; Translations: [Obesity, unspecified] Onset: 1 11-12-2023 Chronic Other nutritional; endocrine; and metabolic disorders (12 sources) Morbid obesity; Translations: [Morbid (severe) obesity due to excess calories] Onset: 1 11-12-2023 Chronic Other upper respiratory disease (12 sources) Allergic rhinitis due to pollen; Translations: [Allergic rhinitis due to pollen] Onset: 7 11-12-2023 Chronic Other upper respiratory infections (14 sources) Chronic sinusitis; Translations: [Other chronic sinusitis] [...] of malignant neoplasm of digestive organs; Translations: [[facility] NEOPLASM DIGESTIV ORGN] Onset: 2 Episodic Residual codes; unclassified (1 source) Family history of malignant neoplasm of other organs or systems; Translations: [[facility] NEOPLASM OTH ORGN/SYS] Onset: 2 Episodic Residual codes; unclassified (1 source) Flushing; Translations: [Flushing] 08-21-2024 Episodic Substance-related disorders (12 sources) Smoker; Translations: [Nicotine dependence, unspecified, uncomplicated] Onset: 11-12-2023 Chronic Past or Other Problems Problem Classification Problem Date Documented Da te Episodic/Chronic Cardiac dysrhythmias (12 sources) Palpitations; Translations: [Palpitations] Onset: 11-24-2013 11-12-2023 Episodic Conditions associated with dizziness or vertigo (12 sources) Dizzy spells; Translations: [Dizziness and giddiness] Onset: 11-12-2023 11-12-2023 Episodic Deficiency and other anemia (12 sources) Iron deficiency anemia; Translations: [Iron deficiency anemia, unspecified] Onset: 11-12-2023 11-12-2023 Episodic Deficiency and other anemia (20 sources) Pernicious anemia; Translations: [Vitamin B12 deficiency anemia due to intrinsic factor deficiency] Onset: 12-06-2018 11-12-2023 Episodic Disorders of teeth and jaw (12 sources) Jaw pain; Translations: [Jaw pain] Onset: 11-12-2023 11-12-2023 Episodic Headache; including migraine (12 sources) Headache; Translations: [Headache] Onset: 11-12-2023 11-12-2023 Episodic Malaise and fatigue (12 sources) Fatigue; Translations: [Other fatigue] Onset: 11-12-2023 11-12-2023 Episodic Nonspecific chest pain (20 sources) Chest pain; Translations: [Chest pain, unspecified] Onset: 11-24-2013 11-12-2023 Episodic Other ear and sense organ disorders (12 sources) Pain of ear structure; Translations: [Otalgia, unspecified ear] Onset: 11-12-2023 11-12-2023 Episodic Other lower respiratory disease (12 sources) Cough; Translations: [Cough] Onset: 11-12-2023 11-12-2023 Episodic Other nervous system disorders (12 sources) Paresthesia of right upper limb; Translations: [Paresthesia of skin] Onset: 11-12-2023 11-12-2023 Episodic Other screening for suspected conditions (not mental disorders or infectious disease) (20 sources) Encounter for screening mammogram for malignant neoplasm of breast; Translations: [Encounter for screening for malignant neoplasm of cervix] Onset: 12-27-2010 Episodic Other upper respiratory disease (12 sources) Hoarse; Translations: [Dysphonia] Onset: 11-03-2019 11-12-2023 Episodic Other upper respiratory disease (12 sources) Pain in face; Translations: [Other specified disorders of nose and nasal sinuses] Onset: 11-12-2023 11-12-2023 Episodic Other upper respiratory disease (12 sources) Polyp of vocal cord ; Translations: [Polyp of vocal cord and larynx] Onset: 07-27-2020 11-12-2023 Episodic Other upper respiratory infections (12 sources) Sore throat symptom; Translations: [Acute pharyngitis, unspecified] Onset: 11-12-2023 11-12-2023 Episodic Residual codes; unclassified (12 sources) Tobacco user; Translations: [Tobacco use] Onset: 08-13-2019 11-12-2023 Episodic Residual codes; unclassified (15 sources) Insomnia; Translations: [Insomnia, unspecified] Onset: 11-25-2015 11-12-2023 Episodic Spondylosis; intervertebral disc disorders; other back problems (12 sources) Neck pain; Translations: [Cervicalgia] Onset: 11-12-2023 11-12-2023 Episodic Results Test Name Value Interpretation Reference Range Facility IGP,APTIMA HPV,AGE GDLNon AGE GDLN ACOG TESTING Note . [facility] Comment on above: TESTS RESULT FLAG U NITS REF RANGE LAB Clinician Provided Cytology Information Source.............Cervix;Endocervix No. of containers..01 ThinPrep Vial Age Algo ACOG Reina... 30-65 01 FLAG LEGEND: L-Low Normal,H-High Normal,LL-Alert Low,HH-Alert High <-Panic Low,>-Panic High,A-Abnormal,AA-Critical Abnormal Performed at: 01 =G [address] [address] Nimisha Joya MD, HPV APTIMA Negative Negative [facility] Comment on above: This nucleic acid am plification test detects fourteen high- risk HPV types (16,18,31,33,35,39,45,51,52,56,58,59,66,68) without differentiation. Performed at: =G - [address], [place] [id number] Barber Tool Sharpener: Nimisha Joya MD, Phone: [phone] Performed at: - [address], [place] [id number] Barber Tool Sharpener: Nimisha Joya MD, Phone: [phone] IGP, APTIMA HPV, RFX 16/18,45 Note . [facility] Comment on above: TESTS RESULT FLAG UN ITS REF RANGE LAB DIAGNOSIS: 02 NEGATIVE FOR INTRAEPITHELIAL LESION OR MALIGNANCY. Specimen adequacy: 02 Satisfactory for evaluation. No endocervical component is identified. Performed by: 02 Sandip Belle Radio Communications Mechanician (ASCP) . 02 Note: Note 02 The Pap smear is a screening test designed to aid in the detection of premalignant and malignant conditions of the uterine cervix. It is not a diagnostic procedure and should not be used as the sole means of detecting cervical cancer. Both false-positive and false-negative reports do occur. Test Methodology: Note 02 This liquid based ThinPrep(R) pap test was screened with the use of an image guided system. HPV Genotype Reflex Note 02 Criteria not met, HPV Genotype not performed. FLAG LEGEND: L-Low Normal,H-High Normal,LL-Alert Low,HH-Alert High <-Panic Low,>-Panic High,A-Abnormal,AA-Critical Abnormal Performed at: [address] [place] [address] Nimisha Joya MD, BRUSH-SPATULA CERVIX ENDOCERVIX [facility] 25-hydroxyvitamin D3 [Mass/V ol]on 08-12-2024 25-hydroxyvitamin D [Mass/Vol] 43.5 ng/mL 30.0 - 100.0 ng/mL [facility] Comment on above: Vitamin D deficiency has been defined by the Husser of Medicine and an Endocrine Society practice guideline as a level of serum 25-OH vitamin D less than 20 ng/mL (1,2). The Endocrine Society went on to further define vitamin D insufficiency as a level between 21 and 29 ng/mL (2). 1. IOM ([employer]usser of Medicine). 2010. Dietary reference intakes for calcium and D. [place]: The National Academies Press. 2. Lowell MF, Wilfredo PISANO, Kathy RAND, et al. Evaluation, treatment, and prevention of vitamin D deficiency: an Endocrine Society clinical practice guideline. JCEM. 2010; 96(7):1911-30. CBC W Auto Differential pane l (Bld)on 08-12-2024 Basophils (Bld) [#/Vol] 0.0 10*3/uL [facility] Basophils/100 WBC (Bld) 1 % Not Estab. [facility] Eosinophils (Bld) [#/Vol] 0.4 10*3/uL [facility] Eosinophils/100 WBC (Bld) 7 % Not Estab. [facility] Erythrocyte distribution width (RBC) [Ratio] 11.5 % Low 11.7 - 15.4 % [facility] Hematocrit (Bld) [Volume fraction] 42.1 % 34.0 - 46.6 % [facility] Hemoglobin (Bld) [Mass/Vol] 13.7 g/dL 11.1 - 15.9 g/dL [facility] Immature granulocytes (Bld) [#/Vol] 0.0 10*3/uL [facility] Immature granulocytes/100 WBC (Bld) 0 % Not Estab. [facility] Lymphocytes (Bld) [#/Vol] 2.4 10*3/uL [facility] Lymphocytes/100 WBC (Bld) 42 % Not Estab. [facility] MCH (RBC) [Entitic mass] 31.0 pg 26.6 - 33.0 pg [facility] MCHC (RBC) [Mass/Vol] 32.5 g/dL 31.5 - 35.7 g/dL [facility] MCV (RBC) [Entitic vol] 95 fL 79 - 97 fL [facility] Monocytes (Bld) [#/Vol] 0.5 10*3/uL [facility] Monocytes/100 WBC (Bld) 10 % Not Estab. [facility] Neutrophils (Bld) [#/Vol] 2.2 10*3/uL [facility] Neutrophils/100 WBC (Bld) 40 % Not Estab. [facility] Platelets (Bld) [#/Vol] 361 10*3/uL [facility] RBC (Bld) [#/Vol] 4.42 10*6/uL [facility] WBC (Bld) [#/Vol] 5.6 10*3/uL [facility] 08-12-2024 Albumin [Mass/Vol] 4.4 g/dL 3.8 - 4.9 g/dL [facility] ALP [Catalytic activity/Vol] 57 U/L [facility] ALT [Catalytic activity/Vol] 34 U/L High [facility] AST [Catalytic activity/Vol] 25 U/L [facility] Bilirubin [Mass/Vol] 0.3 mg/dL 0.0 - 1.2 mg/dL [facility] Calcium [Mass/Vol] 9.9 mg/dL 8.7 - 10. 2 mg/dL [facility] Chloride [Moles/Vol] 104 mmol/L 96 - 106 mmol/L [facility] CO2 [Moles/Vol] 24 mmol/L 20 - 29 mmol/L [facility] Creatinine [Mass/Vol] 0.69 mg/dL 0.57 - 1.00 mg/dL [facility] GFR/1.73 sq M.predicted among non-blacks MDRD (S/P/Bld) [Vol rate/Area] 104 mL/min/{1.73_m2} 59 - PINF mL/min/1.73 [facility] Globulin (S) [Mass/Vol] 2.6 g/dL 1.5 - 4.5 g/dL [facility] Glucose [Mass/Vol] 104 mg/dL High 70 - 99 mg/dL [facility] Potassium [Moles/Vol] 4.1 mmol/L 3.5 - 5.2 mmol/L [facility] Protein [Mass/Vol] 7.0 g/dL 6.0 - 8.5 g/dL [facility] Sodium [Moles/Vol] 141 mmol/L 134 - 144 mmol/L [facility] Urea nitrogen [Mass/Vol] 18 mg/dL 6 - 24 mg/dL [facility] Urea nitrogen/Creatinine [Mass ratio] 26 mg/mg High 9 - 23 [facility] Iron and Iron binding capaci ty panelon 08-12-2024 Iron [Mass/Vol] 90 ug/dL 27 - 159 ug/dL [facility] Iron binding capacity [Mass/Vol] 368 ug/dL 250 - 450 ug/dL [facility] Iron binding capacity.unsaturate d [Mass/Vol] 278 ug/dL 131 - 425 ug/dL [facility] Iron saturation [Mass fraction] 24 % 15 - 55 % [facility] Lipid 1996 panelon Cholesterol [Mass/Vol] 202 mg/dL High 100 - 199 mg/dL [facility] Cholesterol in HDL [Mass/Vol] 44 mg/dL 39 - PINF mg/dL [facility] Cholesterol in LDL [Mass/Vol] 125 mg/dL High 0 - 99 mg/dL [facility] Cholesterol in VLDL [Mass/Vol] 33 mg/dL 5 - 40 mg/dL [facility] Triglyceride [Mass/Vol] 189 mg/dL High 0 - 149 mg/dL [facility] No Panel Informationon 08-12 Interpretation and review of laboratory results Ab[facility] Performed at: - [address] [id number] Barber Tool Sharpener: Rick Eddy PhD, Phone: [phone] [facility] Spec[facility] Status Reporton Clindamycin Disk diffusion (KB) [[facility]] Comment [facility] Comment on above: Greg Arevalo CMP14 D efault Greg Arevalo CMP14 Default A hand-written panel/profile was received from your office. In accordance with the [facility] Ambiguous Test Code Policy dated May 2003, we have completed your order by using the closest currently or formerly recognized AMA panel. We have assigned Comprehensive Metabolic Panel (14), Test Code #931085 to this request. If this is not the testing you wished to receive on this specimen, please contact the [facility] Client [facility]quiry/Technical Services Department to clarify the test order. We appreciate your business. Greg Arevalo LP Default Greg Arevalo LP Default A hand-written panel/profile was received from your office. In accordance with the [facility] Ambiguous Test Code Policy dated May 2003, we have completed your order by using the closest currently or formerly recognized AMA panel. We have assigned Lipid Panel, Test Code #009680 to this request. If this is not the testing you wished to receive on this specimen, please contact the [facility]Techn[facility] Services Department to clarify the test order. We appreciate your business. Vitamin B12on 08-12-2024 Cobalamin (Vitamin B12) [Mass/Vol] 1013 pg/mL 232 - 1245 pg/mL [facility] US LIVERon 02-05-2024 US LIVER US LIVER [...] BY: Castro Ellison MD Normal Not Available Cytology Cervical or vaginal smear or scraping studyon 10-22-2023 [facility] COVID-19 / Flu A/B / RSV PCR [...] or Cepheid Disclaimer revoked sooner. PERFORMED BY: [facility] [address] [place] [address] PATHOLOGIST TECHNICIAN HELPER INSTRUMENT SUSANNA SIMS M.D. Normal [facility] Comment on above: Performed By: #### C OVID19 FLU RSV, CEPHEID NEG, QS #### [facility] [address] Cepheid COVID PCR Negativeon 04-19-2023 SARS-CoV-2 (COVID-19) RNA ELIZA+probe Ql (Unsp spec) Negative Normal Negative [facility] Comment on above: Result Comment: This is a duplicate Cepheid Xpert Xpress CoV-2/Flu/RSV Plus RNA by RT-PCR result to be used for statistical tracking purpose only. PERFORMED BY: [place] [address] PATHOLOGIST TECHNICIAN HELPER INSTRUMENT SUSANNA SIMS M.D. Performed By: #### C OVID19 FLU RSV, CEPHEID NEG, QS #### [facility] [address] [place], [place] [id number] [facility] ECG 12 lead ECGon 04-19-2023 ECG 12 lead ECG [facility] [place] [address] [place] [address] Electrocardiograph Report Signed Patient: Johanna Encinas MR#: [id number] : 1970 Acct:[id number] Age/Sex: 52 / F ADM Date: 04/19/23 Loc: ER Room: Type: [facility] ER Attending Dr: Ordering Provider: Juanjo Beyer DO Date of Service: 04/19/23 ECG/ECG 12 [...] ms Normal sinus rhythm Confirmed by Juanjo BEYER DO ([id number]) on 04/19/2023 9:18:46 AM Referred By: Electronically Signed By:Juanjo BEYER DO Transcribed By: MUS Signed By Juanjo Beyer DO 0 04/19/23 0918 Normal [facility] [place] 04-19-2023 Monotest Negative Normal Negative [facility] Comment on above: Result Comment: PERF ORMED BY: [place] [address] PATHOLOGIST TECHNICIAN HELPER INSTRUMENT SUSANNA SIMS M.D. Performed By: #### M ONOTEST #### [facility] [address] [place], [place] [id number] [place] Quick Strepon 04-19-2023 Quick Strep Streptococcus pyogen es Ag [Presence] in Throat by Rapid immunoassay Negative for Group A Strep Antigen Note 1 NOTE 2 Results are those of a screening test. NOTE 3 If clinically indicated please order a culture. NOTE 4 NOTE 5 Reference range = Negative PERFORMED BY: [place] [address] PATHOLOGIST TECHNICIAN HELPER INSTRUMENT SUSANNA SIMS M.D. Normal [facility] Comment on above: Performed By: #### C OVID19 FLU RSV, CEPHEID NEG, QS #### [address] MG MAMM SCREEN 3D ANA CADon 09-07-2022 MG MAMM SCREEN 3D ANA CAD Patient: JOHANNA ENCINAS Exam Date: 09/07/2022 : 1970 Gender:F Ordering : DR ADOLFO MANCERA . Admission #: [id number] Family : Order #: [id number] CLICK HERE TO VIEW EXAM RADIOLOGY REPORT [...] pancreatic/liver cancer at age 66. LOCATION: [facility] BREAST COMPOSITION: Scattered areas fibroglandular density. [...] Brooks MD on 09/08/2022 at 07:12 Normal [facility] PAP ACOG PANEL 2: 30 to 65on 08-24-2022 . . Normal [facility] Comment on above: Result Comment: Perf ormed at: WB Performed By: #### [id number] #### [facility] [address] [place] [address] Dr. Acosta Fuller Age Gdln ACOG Testing 30-65 Normal [facility] Comment on above: Performed By: #### 4 [id number] #### [facility] [address] [place] [address] Dr. Acosta Fuller DIAGNOSIS: Comment Normal [facility] Comment on above: Result Comment: NEGA TIVE FOR INTRAEPITHELIAL LESION OR MALIGNANCY. Performed at: WB Performed By: #### 4 [id number] #### [facility] [address] [place] [address] Dr. Acosta Fuller HPV Aptima Negative Normal Negative [facility] Comment on above: Result Comment: This nucleic acid amplification test detects fourteen high-risk HPV types (16,18,31,33,35,39,45,51,52,56,58,59,66,68) without differentiation. Performed at: =G Performed By: #### [id number] #### [facility] [address] [place] [address] Dr. Acosta Fuller Methodology: CTIM Normal [facility] Comment on above: Result Comment: The Thin Prep(R) Olap Developer was unable to read this specimen. Therefore a manual review was performed. Performed at: WB Performed By: #### [id number] #### [facility] [address] [place] [address] Dr. Acosta Fuller Note: Comment Normal [facility] Comment on above: Result Comment: The Pap smear is a screening test designed to aid in the detection of premalignant and malignant conditions of the uterine cervix. It is not a diagnostic procedure and should not be used as the sole means of detecting cervical cancer. Both false-positive and false-negative reports do occur. . Performed at: WB Performed By: #### 4 [id number] #### [facility] [address] [address] [address] Acosta Fuller Performed by: Comment Normal [facility] Comment on above: Result Comment: Akin Blackwell, [employer] Mechanician (ASCP) Performed at: WB Performed By: #### 4 [id number] #### [facility] [address] [address] [address] Acosta Fuller Specimen adequacy: Comment Normal [facility] Comment on above: Result Comment: Sati sfactory for evaluation. No endocervical component is identified. Performed at: WB Performed By: #### 4 [id number] #### [facility] [address] [place] [address] Dr. Acosta Fuller MRI Upper Arm/Humerus w/o [...] fracture or suspicious marrow replacing process. Large gcuus-hi-dhoa imaging of the elbow grossly unremarkable. Muscle bulk and signal intensity within normal limits. Visualized tendons intact. No other significant abnormality. IMPRESSION: No suspicious mass or lesion at the area of concern. In correlation with the recent ultrasound, the lump either represents small benign unencapsulated lipoma or area of focal fat deposition. Report reported and signed by Castro Ellison on 07/06/2022 0849 Normal [facility] Garment Tag Stringer US Upper Extremity, Non-Vasc ular, Righton 06-09-2022 [...] by Ervin Lagunas on 06/09/2022 1330 Normal [facility] Lab - Toxicology Resultson 0 04-14-2022 Lab - Toxicology Results [id number] [id number] Normal [facility] Drug Test Panel 10 022 Drug Screen Complete Collected Normal [facility] Comment on above: Performed By: #### 2 [id number] #### [facility] (DEFAULT) [address] [place] [address] Coding Summary.on 10-04-2021 Coding Summary. CD:[id number]:[id number] Gh 0bWw+PGhlYWQ+YG1PPUFeE 77chLBzhE2BP0qFAZ5XAIU NJVVXZX2JOC1njRV3NKotK 2VybiAv VevbmGYrYF32SBc5GQZ4qP psIGotyB1rqAWmT9t4VgKo JS63kQ28BOvkOZQwAgP8Nl ZpbjsgbWFy L1kvFbGdkRDvLyk+PHRhYm xlIHdpZHRoPScxMDAlJyBz gAgkBX8jHb6vJCQyZZIwvB xhcHNlOiBj m8tmTDWiUJlwNK2ngLvfG0 QzhTN0YSNxr1z5Pu59jXA+ DVStBUJ8sYtcQYsns947Ej Ovv1wyFZF7 qLAcKGooJKI5T96gy0M2ZV IbSZLaNNC4yYF1qE1scWbo axkmN7SewRKsZmK5IPR5dJ YiqO1riDhw jduuhJ5aLlf+C23FIO5WFC OFJD1PXzm6Y7TvZutvsFG+ TJ95YRQxPC48zWNlkONao7 ykeVl0OvAa HFYrCAD9aEevEXjnp4FmXB BwG00msVQyr2D2BRJpbNjz sVTiAmIdcOS4sG2kKWtpnt wcz1qhguhc Dkgec2vzfq94gY79Y04nED oiRADpGML2MSFrOGAxlBnl iz0ldH5zNx6+NSmji5gfb9 tmsIt9WiQv KMQtsoTkmKbtJTE7r9NyOn 86W0VtsXsvt9FgNho9of03 dFJwb2E7nRG6WGtaXFEurJ 2tOSxtWtH7 JFByPjToiJ02nYDvTTscWc 1lgTnflLniZR7oXXLruzsl DSFimO0rMQEppTNohMoeQP 4wNTBpbjtm a555KdNyZHH7LOUkhZLhI6 GvdV9tYdBfGCBdPAAdY3Gu cCNgHPghV835BAitMtR3ZT PcdbSvS7Fg KBPhgEmvDiN4m6B9Bf0Rp3 ShkfxfUAH2OUttAFMoUxHj OnMxClI1K8VtJzl1BNQthT pbQG0hQ3Dt FYGovmcpflupyOX4ARSjLO JxyX69fHVtEWjeHo4hm7B0 g691VROhDEDhtE42Fi7saD ogMTBwdCBU eJ2oqbdqe2ggcyxoYtUqKO RgUPa6QFy4NMSgaBwjEySr MSB4MfW6QYZ9bYMpwE1cuY gtjpnhwG5s Oyc+B25sdZ0yUWZ8RYF9vc nfQKJhubOtUF42FT07X3Md PjwvdGFibGU+PGRpdiBzdH irRX9sMdQb n1pya6WzECuiM2UyASPdLC pzUjg0SUToWLB5vBM0cX6x FGQsWPxwp7M6aBC8A9Escu Ihek4al9jh JBBcWOgeA45zzDPra9V6KK MlpWX9LVUjcRvzAlOpxS62 Oyc+BHDjoDmmy8RrDmuyf3 qrh5ldqGf3 UpLuYLVvjjQatJlcGGD4p3 DlEe65P70wCJxdTYMqIVBx WOZnMCDsaBwjlj0upX0jCe 8+PGNvbCB3 lDM8yM5kKUEaVlG6RChkO8 85GvDhjCKpCalup0qpq8ri aRy3AcZmUIKpcqPcuXnjDG D5s2EvOy90 S03lGKtnMNEqOPTfHRVzHM LroEdycp4tfD4uIj0+PC9j y7wwlc13aB80xXC+PHRkIH N1mJopVDej KPGyjH4gYEggLyC3WHMxQn UcoB34tYUeTCpcZg2usKps oHkbBP1vBYJqcghjn944Kh Fts7rsIYHc kYAoXFemUFI4S13ry7C7LQ KuFOAhXRE7xNH6iD4dnFqb bjogbGVmdDsgdmVydGljYW dfCMztL581 IHRvcDsnPlBhdGllbnQgTm MtXSy8B9BaQcg7XKTgaYqx XX4yaNIqHQyuLe4vbStqpY fpYF9kMHCc bergp455WaGzo5fwQTTovK ZgUZqeZIN1C33jx0E7FTHq RCFhVPC7gQV0eN8imWyejm ogbGVmdDsg dnRoiQruOUyhIOyqR560GU RvcDsnPkJpcnRoIERhdGU6 JI64ZB59lBSjj4Z7yAJ4S8 BhZGRpbmct awhkwMR2ADZlVAFjnP67Mi 2laIxfWu5nXTWkMLU9XHSc qADsB6EiwQ4lAhUaIMRgEZ OuK3RywLPq NFdmF759ZUdcJnZ6TOZiwf XbX0VjGHClhLnlSsE2y4S6 Vw0OM5T0GI97BG95uSAqg7 S8gZT8J6Bj NBJfltalwtxhtYE6JQJuTK SjeD15Ve3qpHfvLt7iJYHt GLR7NNGytLBcE8GuzD1mAp AjMDAwMDAw I0LqcIUuNXpjA782BPfdGf V9EWKttpHfG5ZiDTMbdImx QwR6m4N3Tj7BBIt4AW51DL 99lRQwh1O1 rSE1D8YmTUQxvbfxsswlkH Y1JTCxFSOtfK37Mj7wfNph Tq8gUGRyYTT3UWJocHOdH9 QweH1aMfBx ZNMfKBYqS1CaaPLxIGywZ4 50XQlqJkO3MEBsndLwY6Xb FSDclGqxPqE3j2P8Gd2RNV WyAU28SNM7 lNX6LO50IO30E8IkGbqtrR FibGU+PHRhYmxlIHdpZHRo YTjaPNOrPbYqjUhaFR3kXf 9yZGVyLWNv tDadsFSmQvFvn3nsEYJkSK maVQ8krIbkS9RfnYV9FKFa o3k5Pk46R62vI8PlbHB+PG EboBR5ePW5 qW0oBqLbNxZ4YSfbB656Qa KetHVvXiaxo5bza0eeqSw9 FzY5FGJavxJpfYtaYQA9h3 BdLc81K39t IHdpZHRoPSIxNSUiIHZhbG jtbh1scS2iWw3+PGNvbCB3 yJC0iY5eSwNuOcU5LWhhG7 49InRvcCIv Dovgx4oln7ksnAh6PaLqJJ QnoaRtaNjtWAD6j6SuXk14 A1PjgWdvr4KaWrp6od21jC Qfj0V7uFR0 Y5YiTXGyfqjthKXfpTizMW 4mCTHtyggoUBUvrO8eJIVa C6a1CmRrOqI6TCdwR3Dxwx Q6WEAjpBOc BCqvSFJ2H59sw2F7AUOnZL GcYPD4eUR9nN8djRjqxzaw bGVmdDsgdmVydGljYWwtYW zbH483DCCm oAilSISvgG9jHVGaoMYrwI jiZA0wCXQgdcydJoUWM5gK DPlzFFIGBIXVAXiWRM80FB 93nFAbj4H9 jPD4I9WwZBFejewixxqceR K8HGFjIBGmbK11lHKfQEea Sr0bi8T6d040FJTqMWIhzM 30Iv6qiObr JAHqgJBUmG0qvvjnn9cchr vtIyZuZLGbVTh7TFr6NQUi pZetPvWsVQV6NwG3BDH3fU ZauH5dpPle fehpzD6zTzi+MDgvMjEvMT v1WYfeuCJ+ZLWhQJZ0jCbs OPmqQHStjT3vQHXoK9o5Sk NwCcO3ANtf B8CmFUMucwjlNw09uI8hSb ViZzH3CNulY2QenpS8OROy tPMrIXruZCP2H13pi7Q4UC MwMDAwMDA7 mEA7fG2scUecnosimOLdhD wfhaLzdOpnPRsvJIqjM000 IHRvcDsnPjUwIFllYXJzPC 68FJ91jVUs w7W5rQI7K8ErVIShqnlvxe jggHX1OKMbNZCfpN25bIRh JVkbWf3cr0U1t087GNLmDF PvlI67Bp5r zSueVVOrsGGHrO4ykuqas1 kzyocfEwUzILXlGOo4EVc8 FPLpeLkmYwGcPLZ9HiL2CM V9mBAgcO8o fIlygbvdfX3rEub+RmVtYW orPL30JF50pFFbd6F5zRV7 N2BpIBKdbxubzcyhaSQ1BD TaSGZzvO75 eSSjVOmoNh8op7G6l864AZ JyROXrkR58Vu8uaXjvRJIe dTQUpA8kksybf6spijcxYf AwMDAwMDt0 UYh5XKFkvWllRoPxJPC1Az B4VID3sGZbvE3ouOgiiwxf mF0fVxb+F7T0cWV5hKVuoB wvdGQ+PC90 ky12O5ApUdldXdz0PVArWT L8sUW5uU1lNAXoXGofd4Y5 yNI9J9ArcxSmue3fk1bfXU FaSPkfF03d eZBmq8X9TMYfjDB4PNFyyE ewGdNloQ30Iwn+PGNvbGdy j5BfRvvpy8rvn6nehCv5Bb MwJSIgdmFs zZmsUZX0p4UdSa29O54oYM dpZHRoPSIzMCUiIHZhbGln nq9kfK1pHq5+LXPryMB0vI T9kW1iLzWs VcP1UVyuQ118SjBywALuYw ppw7zoh0fxoTx7BlCgQXZi anZhvXawYSQ5b9IjFh32E3 WwvQmkt2Zx Lru3qs33nDXcu1I7dHP4K6 WuHIDcjvtsoYWowGplJB7m QZIctorbEYIzrR9cSLHjV6 q5ZpGvElN0 TZuvP3AqbpY6DTZdzMHvQY TiiNSNfP8xpdnlz4ybkkuq ZiYuTCZyXWc4YYj3LUMgzN duOiBsZWZ0 QvO5QLD2yTVtxE5dvErxsk ramM8jDsq+XBa6b0cciKNw KG9gwMV9YQ40VX37wRAqb3 Y2nYJ0V0Lz ZSAwvmxhictkqCA2QXCyTG KkzM85Tg7lmHjsDy4dYQDh NRZ7VKRlfHHiH9LksB5eDc AjMDAwMDAw C4MxqKHdIKpuO235ICjiEv V5CQOgkcPiW7RtVXYilCsp UsC6a4F2Yr5ROZ35UM90TM 83kZNpf7L5 bFK5B7EaSGGkohaepyalzK L2MECpPQZflW82Pv9pnUpr Ut8vADOwRZE7FNRneKTmC0 HaxX2xAnHr KTThAAZhG6NplFTtKDvaK7 66EYfvYtH9SMMqbaAyT9Qu TUAjuMghGuP1b4S7Th9ILn 69AU98HT57 vQNva3L4fTU0N2IyASAkis ancsqtwMJ4CRYzNBPspG30 Ig2tyJuvSm0aMBHiKKH5BS PnlHVoB2Yl dQ8fToHjSRHwGVKgO7HqjU HgMYmgS994OHabTgJ3AKMn enAcY6SdEACqaJaqYvG2t8 Z7Hj9NJSer hwr2C3AgCpeaaSN+PC90YW QmNW69eOMptXPdc4fltMi3 TcNkVYFuMTU8rFuvPOvoq2 DhHIIrA53x bGFw (more content not included)... Normal [facility] BMPon 09-08-2021 Anion gap [Moles/Vol] 12 mmol/L Normal -16 [facility] Comment on above: Performed By: #### 2 [id number], [id number], [id number] ####[facility] [address] [place] [address] Calcium [Mass/Vol] 9.0 mg/dL Normal 8.9-11.1 [facility] Comment on above: Performed By: #### 2 237082, [id number], [id number] ####[facility] [address] [place] [address] Chloride [Moles/Vol] 101 mmol/L Normal 101-111 [facility] Comment on above: Performed By: #### 2 466506, [id number], [id number] ####[facility] [address] [place] [address] CO2 [Moles/Vol] 23 mmol/L Normal 21-31 [facility] Comment on above: Performed By: #### 2 689232, 1034353, [id number] ####[facility] [address] [place] [address] Creatinine [Mass/Vol] 0.7 mg/dL Normal 0.5-1.3 [facility] Comment on above: Performed By: #### 2 744548, [id number], [id number] ####[facility] [address] [place] [address] Glucose [Mass/Vol] 109 mg/dL Normal 55-199 [facility] Comment on above: Result Comment: If t his glucose result represents a fasting glucose, interpretation should refer to the following reference range: 55-99 mg/dL Performed By: #### 2 683608, [id number], [id number] ####[facility] [address] [place] [address] Potassium [Moles/Vol] 4.3 mmol/L Normal 3.5-5.3 [facility] Comment on above: Performed By: #### 2 971249, [id number], [id number] ####[facility] [address] [place] [address] Sodium [Moles/Vol] 132 mmol/L Low 135-145 [facility] Comment on above: Performed By: #### 2 227369, 7747181, [id number] ####[facility] [address] [place] [address] Urea nitrogen [Mass/Vol] 13 mg/dL Normal 5-21 [facility] Comment on above: Performed By: #### 2 520300, 6793156, [id number] ####[facility] [address] [place] [address] Urea nitrogen/Creatinine [Mass ratio] 19 No Units Normal 10-20 [facility] Comment on above: Performed By: #### 2 544061, 3621931, [id number] ####[facility] [address] [place] [address] CBC w/Indiceson 09-08-2021 Erythrocyte distribution width (RBC) [Ratio] 12.7 % Normal 10.9-14.2 [facility] Comment on above: Performed By: #### 2 827678, 5800598, [id number] #### [facility] [address] [place] [address] Hematocrit (Bld) [Volume fraction] 40.3 % Normal 34.0-46.0 [facility] Comment on above: Performed By: #### 2 848919, 2478074, [id number] #### [facility] [address] [place] [address] Hemoglobin (Bld) [Mass/Vol] 13.9 g/dL Normal 12.0-16.0 [facility] Comment on above: Performed By: #### 2 581923, 9276189, [id number] #### [facility] [address] [place] [address] MCH (RBC) [Entitic mass] 32.3 pg Normal 27.0-34.0 [facility] Comment on above: Performed By: #### 2 123853, 0538901, [id number] #### [facility] [address] [place] [address] MCHC (RBC) [Mass/Vol] 34.5 g/dL Normal 31.4-36.0 [facility] Comment on above: Performed By: #### 2 812229, 7934934, [id number] #### [facility] [address] [place] [address] MCV (RBC) [Entitic vol] 93.4 fL Normal 80.0-100.0 [facility] Comment on above: Performed By: #### 2 611690, 3710447, [id number] #### [facility] [address] [place] [address] Platelet mean volume (Bld) [Entitic vol] 7.6 fL Normal 6.4-10.8 [facility] Comment on above: Performed By: #### 2 718587, 2397810, [id number] #### [facility] [address] [place] [address] Platelets (Bld) [#/Vol] 401.0 E9/L Normal 150.0-500.0 [facility] Comment on above: Performed By: #### 2 403830, 0187887, [id number] #### [facility] [address] [place] [address] RBC (Bld) [#/Vol] 4.3 E12/L Normal 4.3-5.9 [facility] Comment on above: Performed By: #### 2 738130, 2260443, [id number] #### [facility] [address] [place] [address] WBC corrected for nucl RBC Auto (Bld) [#/Vol] 7.4 E9/L Normal 4.0-11.0 [facility] Comment on above: Performed By: #### 2 168330, 5301796, [id number] #### [facility] [address] [place] [address] Consent for Treatmenton Consent for Treatment [id number]#1.0 0CD:127 Normal [facility] Physician Orderon 09-08-2021 Physician Order [id number]#1. 00CD:127 Normal [facility] eGFRon 09-08-2021 GFR/1.73 sq M.predicted among blacks MDRD (S/P/Bld) [Vol rate/Area] mL/min/{1.73_m2} Normal >=59 [facility] Comment on above: Order Comment: Order added by Discern Expert. Result Comment: eGFR is race adjusted. AA=. Performed By: #### 2 745803, 3670953, [id number] ####[facility] [address] [place] [address] GFR/1.73 sq M.predicted among non-blacks MDRD (S/P/Bld) [Vol rate/Area] mL/min/{1.73_m2} Normal >=59 [facility] Comment on above: Order Comment: Order added by Discern Expert. Result Comment: Instructional Systems Design Consultant mahad kidney disease could be indicated at eGFR's of less than 60 mL/min/1.73m2. Kidney failure is indicated at less than 15 mL/min/1.73m2. Performed By: #### 2 528215, 6165256, [id number] ####[facility] [address] [place] [address] Stress EKG Tracingson 2020 Stress EKG Tracings [id number]#1. 00CD:127 Normal [facility] NM Myocardial Spect Rest/Str ess 1 Dayon [...] Stress Dose (mCi Tc99M Cardiolite): 29.2 Normal [facility] Coding Summary.on 07-15-2021 Coding Summary. CD:[id number]:[id number] Gh 0bWw+PGhlYWQ+VK0SOLHkJ 06wtFIlvR6KZ8cMGD9KOBR BLNLJCF2QQL8bnNP2HDbjA 2VybiAv HnrjbYJyGQ35EGy7ROS3vP lpYBrtxV4glXLpA1j3CpQg SB71nV10WLjdYGUaRhQ3Aj ZpbjsgbWFy A5rvMkVrxKLrEbe+PHRhYm xlIHdpZHRoPScxMDAlJyBz hFrcIF1sIf7xXPVgXPFfmO xhcHNlOiBj l4usEUIsCYqwLX4xdYkdB9 TdzGE0YMCkc3l0Sx38fXD+ XLBmGDQ3nOmpOIjtw377Ft Ayb4xiKQQ7 xYAvGJjmJNL9N22nl9O2MT QbQWPpJXX0vDK7dJ8pyMbv bvrpV1OqfRFtCgN7TIO7sH UqaS0alFhm uyubxW1cEqj+B13QJP4NWV YHSW4REjh1S7ZtRckvmFY+ RS04NSNtGN02jKGqrDDfd8 sekRh4BoZs UKDnIWV6zYlrYDaig8WkKJ SdM30okUTtm5R7DSFwvAjt vAIgGiJjkEF2zK4mERoafy spo9ezkfjo Ejrxs8uede06lC25M87jRJ msBYPhZVO2QZGsBVKyoNas ru6asE5gGm7+VJkpx1uav0 iehKr8CbPe DKKelhXnsTipEAD9r6NmNs 73A7SatKmyk7JsOdf1gs18 aNZus2Y5kXJ2ESigEJBycG 4eHOpqOcK3 VUDqVaOujJ14iWYfWCuwTq 1scLyedPyaHD8xCNTqmbuy OVQyyH7zTELgbKKeuZxtVE 4wNTBpbjtm k858QhJuSAD7FBCbpKNfG2 UleS9wXlSbTBWqSLDzP0Jd pLZeAQjoN152IAzoDmS9MF HhanVoY0Zt OROxwGgwUzZ8l6C8Zq8Db4 YvtbsoFSO2OWbvXDN1CpIe CjEfAaD7J7BdTja2NFXdxP vjDS8pS9Um ZLGmggqmxutpfYK8NDKwUG AzmM40dNBpLKpzVm7nx7O0 k790KAZnXVNjrZ72Xz4clR ogMTBwdCBU mH1qttfla2euezmjPrBtBX UySFq9SSi4JIZwgEbgZsPz DRT9QlZ1XAS5lEHeoU7rmG smzjxfxU2x Oyc+Q14vbP6xLRU4NDE3ay vcDEUqkjOwRB48PM18R2Qo PjwvdGFibGU+PGRpdiBzdH szHL5oHqYr j8yxu9UsEYyaR0OrDOLyDU rnNeo0MZYbUXK4lJG9uO9z VSRwGTocd1Z8bOU3N2Blml Dslx9kt7zi COTwGRodZ94hkBDdk8D2AI CugFM3QSGswAufBtOlrM96 Oyc+DEUgbKnot2YhCjjeq2 ijn3aiyMs7 FjOwRFHbkvHmwUwiUOX5s2 PaAn44C81cXNzjLDUhWSFu NRZaOWQztNvvss2xjS9kBm 8+PGNvbCB3 yDZ7wA7wIMZrBrM2RCaaW1 60ZpBygDWoNgjoe0vfw6av sXe0CpQlXOWmscMmwYuvHX I0j4MmUj61 E99eDTrmABZoJNCoIVTpCI FsqKtkvb1orP1mTr3+PC9j b9vhgq38jW80cYY+PHRkIH V7uPtaGSov BYMdhT3hPHspQwY7DJZkRu AzdK78iFIfAIqyGr3qjWqk sUvxNU6mZHTncysvp972Pd Ywv6slDPLq vUQfQTrgQQV0J00uf1N1SL SxHIXdQXC6xVV7dE9vnIxm bjogbGVmdDsgdmVydGljYW ncREkjI013 IHRvcDsnPlBhdGllbnQgTm PvGBz2C3NyVue8AHNgbMfq AB0wnLYfWXmdRg2jtYflhH bbWY2jFWLq tdclk134FxMdb2aeCUAblU OaMIpbAIK6V85mz1B8TEMu HREqCLX9zEV1gD0mdZjgyj ogbGVmdDsg rtDlkPudFMuhXOoiZ294ZO RvcDsnPkJpcnRoIERhdGU6 GN58RK69qDUei0T5mKY9S1 BhZGRpbmct opwjuFT6PVTvDWTriM70Kh 6eiGpvWi2sBZRhPTU0MYGf aSFwP1QfzT0fYzRvMFZiYJ KzE0BuuLIf WManB052VWwfZyX2UVJtxs DtI2WjFKJsuMlhVeG6n3C9 Vh3XN2L5LE93VL42fDTvt6 F9vFZ8F6Dt DWYnxdmxwglmtPT4LXClJF TvhU13Mt0joAqhIv8jHTZk UDK8FTXfsCDqS2VebF4hAd AjMDAwMDAw F2VwsXMgAEcmP863MIqeJx Z4XOFzeyGlO3GvCPRyfZam DqM9p8Y3Qu9EKOl4TA20WT 17rEBae3W3 mDK2S1IwBAHbwyjoxqsdiL N9LVCaGIPsjA33We8ldFvl Ur8aDMDvFPP5EILvkDChO1 IjqH6iQkMf WVDoPBXpN3BdtOAfLLicW2 82PBzdRpF0OMAoxlOhC4Vo QGOkhXplFrR1h3K4Cm3ABC RpMJ93CTK5 oGK2FB06VM07L2MrFsaprN FibGU+PHRhYmxlIHdpZHRo PNecOABsOeQggXmjXG0oVg 9yZGVyLWNv jPntpILlQtLdw8zgSIIhVJ gnDU1rcQggU0VxbIP0KYLs y2k8Ix17K54fU5EbbPW+PG WgaWN3nZF1 fL4hKmDxIjP1TWdkL486Zc CotRCiYzscc1vhw1qhtVt9 GwT3AZHcgqExgWasJYE1j2 TlHi65N56w IHdpZHRoPSIxNSUiIHZhbG cpkm3ndG9iLm2+PGNvbCB3 bXR3dH1nLrTfMpN3TUbuC2 49InRvcCIv Gokkz7ifd3macHk5RgCdPL BdzlEwoFotASZ0a3NgPj38 J5NfpWgju2YnUdo5kk73uD Zcr8I1aQS5 M9UbFDQnxqzvhUJubIcrHX 0mOMKudqdaYKEjtU0hZIAs O7u7ZlOdBiT3MDogX7Kgej J1IYFjgKMy YNqyNTX5Z31nr2R8BAVmMI GdEJR4gSC3cO5duFssugsx bGVmdDsgdmVydGljYWwtYW oiC098LIXw lJusVYGphC9gXUHzvNKiqW rnQT6dQRAmkeqrJpVWS1uE BOuqSZGUFBQMOXcWXM34EO 38xBEnv9N4 tWL5K1VhPCXincqspyxvzL N0MEMzCFGbyI31qTJoGLsg Qv9kx3V6m932XLDoAQSqeC 21Ue2piWgq MOUqiINDmK4xbvezv9xewv caEkXrPDRoVWk8LJk0VECq bLpwOwPyOJU0PeI2KSA8gJ JywC8rlGmh ttfswR4wFxo+MDgvMjEvMT u2YPjfiWH+QXRvKDC7bKyd BMqbSXWelT3aKUGlG8w1Of VlQlW0JLiv V7UxIRGgvydxDx63mY8gWc UhMtK3CLssD2BucuU4SULr jWYxUItyGGU3D36cv6V1WP MwMDAwMDA7 pSU1qR6hjSsvorivsYLgiI oscuGrqDvsSSevXWomI458 IHRvcDsnPjUwIFllYXJzPC 91ZD20jBNa y2Q9cLL0F0EwSEYgckiffi nqhAM1YGKwPJJcyO85sLEc QAldOp4vl0G7x491IPHuOH MvvZ35Iz3i fOftPFKhjFGRpQ8bdckqg7 ktrcyhStZuZFJwXWb1VBw7 GKPfyBnnYyQeKQV5KoY6LC C8vFIlqV6m rPbbqocbuR2pXzb+RmVtYW bxDS23SU86iKGip2V0gJS0 B8XjNAJxpolehbigpYO8KS BrKNXtlY92 aHSxUYojPj5nz7F9l315BZ EaAQEgjR64Jc5ejRqlSNZi wFFNbO6btxjpp9jpyueyGl AwMDAwMDt0 AXv5KGGlxCzbUuDgRDZ8On V0KMU3wBTkpK4znQfukkcd qH5oOjr+V5B1lXZ1gUYzmQ wvdGQ+PC90 cq52H0VhZlbbVwz0PPFlFS V8qPX3wB5dJBReTPeuo4A5 dDY5O2WkfaOqpn8rs1ecZD AgYZybV51z fBNzn7K8DCIwwUN5WJKwsG xzEhBdxY66Wda+PGNvbGdy s5EqZnfye6qze0lzqWk3Bn MwJSIgdmFs pRyqYAW7v5FcCh05V50sAT dpZHRoPSIzMCUiIHZhbGln it0ybQ8kRv5+ZHZahUQ3vA X5oX2aCcQj IfV4IIeuR485GyZtlNToYl tox6djw0ghoLi0PqGsIFUx plQevMdeSOF2e6IsEf85R6 XewYfkv4Fe Spz2pr54hZJum1C0iOJ8Z0 WvXFHthpobhTCcxAupYK3x FXSncofcKTSuvQ4tQYCuP9 a9NaYeRwT7 HRhtA5QiorT2LOKtjVYxKV RzgLIBnT8hfohar9egjgix JoXiWDZhDMx4CNh4QKAkrG duOiBsZWZ0 VlP2NGW2oMLwsZ3xlIqyci pgcH0oBtx+VTg5c6klvPXy JZ0qtYS2LK45KU98zNAzk1 Y8bHV5C6Fh ZXZkzjaujaksaMP8OONwAR BxyO63Re8wfYvqYr5tYDAr ADM6HYUbqBZsV9QitJ1oPq AjMDAwMDAw C9GmyOLhZYlaA411HTzwBk V7TMMktbRlM0ZeAZBrlAli VqY1y8I9Jk3SMJ64ZK06GS 82dMLom4N6 jJN8U4SsAUDznyqxewtfnV R1LQHkGCGfxA44Rb8uyHpj Dt1bZLQbKPI5GNRrvQOoA9 VztW2mQnNx NSBdAEWyJ2OrwRYpAVfuI2 61TJlmDrO0HOYztsKnZ3Kn PPOaqDenHsW7o3P8Rs5STp 01ZY57HD28 gCEte0L6sPQ4H4TxBPKrch iaxheyqGN9UEQnOONsqP01 As8ydBhdNa2gBVXcVUC0DB BrrAVzL3It xF2aUiHsKQEbYWFuI3EomG GqZAieB646MKkaKuB2DTVz pfHmV4PmVUBnsTekZfN0j9 E8Yc1STTcx jjl5Y2EjZrntoVC+PC90YW GvBU10yBZqxRGlo1tnoVx4 SnKhPRQkAND6iNjlWDfyp8 IqDHGnY77n bGFw (more content not included)... Normal [facility] Consent for Treatmenton Consent for Treatment [id number]#1.0 0CD:127 Normal [facility] Physician Orderon 07-01-2021 Physician Order [id number]#1.0 0CD:127 [facility] Coding Summary.on 06-27-2021 Coding Summary. CD:[id number]:[id number] Gh 0bWw+PGhlYWQ+BH1XAQHfY 50xwOAhaN7NW7mJFO1NOWF JIVOELB3GWT8aiRJ3ICpuP 2VybiAv QyctqDFiFN84MTp6CSX8sU lcYChweK4fhSKpN1y7TwOf TE31mR62FIuuKTRdUuG8Xi ZpbjsgbWFy A7urKpIlgAVyMkx+PHRhYm xlIHdpZHRoPScxMDAlJyBz eOlwGV3gXx3uMGGcFJZznE xhcHNlOiBj u4ebLFYpPUipMF4brAswL4 XtoNM1BDSnr0f3Us38fRC+ CUNiBTW6rKonRVqmd185Zv Isa3rfFQN9 zQSaZNytVHJ9J69ed9V3QN AaMYDpPMR7gNV9sT2jcBew rucuK2SphAElWvP5KJY7qZ CttN2yoWjx dynuhZ2bFhl+F23VAS0YLB WUPT2MDjm0M4OdQzspzUT+ KZ73UUUmIZ46cYDkkSJfl6 sbsHf1YsSd YZPbBVM1xOwmLCfur5TePN LaT48mjFOdl3D3CEJfvJrw fLLrRsWtiBE5nO7fEWwwlv ofd1rhcgdo Xcipg3ggtf26jG37X99nXX brZGSfVBQ8FHGrHNHmvDwd yh4wxY5qJt4+JGtix7utw0 gndBr2RbMp PSZsqpLebLorVHG9m7FyDk 77V5JrxQuhb8DnMsv1oa92 bZTpx6F2wWL0LBlcRUHtgV 7bMRczHjR3 DSYkNrGmoV67wNFoIOblEv 2ziRmobRgeIX8xPVJqfnlb BWFfcU3eFGDelYAuhIprGD 4wNTBpbjtm e822HyZgMVY0OVOvsEJeS5 OewC3jQbUpQFIiWVCaH2Sv kRGoFLwkU747AKibKuG7HY GpivAdH7Xx XUUfgGcuJnX2s1P3Fo0Sk3 LfdqqsUBI3BVvrTGR8RhUm McFzEqR9W1WgWhc7EUBtkP ikML5rU5Yo PMHiavqxcrfslRL4DRIjHK FbyL75uAQqJEakFx3jc4K3 q522SPSnRDViaY08Is9ezA ogMTBwdCBU qK3grzqel5gogyxqWqGkPN DyBXr2YVj5OOLaaTrgAwYr XSU5SeZ9GOZ6kKIlcA6imQ aqcvteeU8n Oyc+H28scC2oZYN0SOP1ds slXHErlyQuHQ82YN55T4Qv PjwvdGFibGU+PGRpdiBzdH hpMJ1pVdOr k9lxe3FqXPrmI9VxBANnPX gbXzv0CQDyYKX6oUQ0yS9y SBTxIFhlk1O3yMS5M7Stuf Hcof8io3mz ACWfDWpfF94hlZDvn4B5RW FhmAK5GXDntCntSfKksS71 Oyc+ESDwlOseb9RrUyrtz3 eti0cbfOz5 SxEbKVUyzuHrwHsaNFY6o4 SyXm54E53cEKrbNCPsFCEb KVLqGHZewDfazq7nqZ3rIr 8+PGNvbCB3 uSZ5eV1kRWOpNkD1ELzgP1 17VoNdmJPzOzser7hkf8yr mIx4CmIvVUFxneFseKirFU Y2l6TwYe01 H67yBQviOMYsOQKeZADaTV XucItxcx0hmS3jQx6+PC9j b0jaek89oC56nEM+PHRkIH M3qJnmYMrz ZKViiF2yGAoaIfV0LWGxZb XluK99pYRzLGnwZb6mbZlz pQblKX0xVKPihzcpz274Um Amy8yiSWMy eMBwTHrxNBS3S81ky9C2DU FiXYHxVLQ7mJP9xY7vmRas bjogbGVmdDsgdmVydGljYW tpWXgkH717 IHRvcDsnPlBhdGllbnQgTm CuONu2I2CmXzq1THPvmHzr MU0ozKEeLDorOd0vhGguqZ lhVQ8wQXGf eudml874DoCon1ahUTVrqT LdRQsgESN4J66ov4C5XEVd APSnVUN7fVE4iR6qgCtakz ogbGVmdDsg vkUrtUmxGVoePXbfW080GV RvcDsnPkJpcnRoIERhdGU6 EG13ZR74aGZjs5G9nVO3S8 BhZGRpbmct sbeyoSR8HEEjUAFxsN71Nc 2rhTqxKz2aJUKrWWX0EATn qNZoN6FoqN1gMsCtLMOlIC DfD5NozIKw BJjbD658BGwxNnM0MXTmtt ZpF0UfUKHjwXneBpM0c2U3 Gz3ET5W9BB54TD30qJQmf9 O2uPI1B3Ph SSMengzxsfsouPV7PALbKD VvfF53Nw0fhRwoMp1rAUXy MCT0JVBisDNmC1DvuX5aVd AjMDAwMDAw M4TcgSMwWNzhR072FXbfMp B9BIPjveOtI5CwPCClaDxv WlV7u8J2Dw1BMFh2FK67IO 84tOCsg8G9 nNA1W8NkIPRochlaiftjfG F7XEPaCLIymR82Zf6wkWxk Qg5oTDQyNKC9DZVdkDQlT3 RkqL1cHhXb HQKzZPPjF4ZosQLjBSsxP1 66IFuaEaF2LLXwswPiV0Wv PUKuuJzhQiX0x3C2Pl2GTM WiGW70CHX3 kIN2UC03PD12V9ZdClqzmO FibGU+PHRhYmxlIHdpZHRo AWjzSVWsWvBhuEorQD4iSx 9yZGVyLWNv bBoczTQdQfBla4xtTUDlVS jvGH8kuYmbJ9ZszCR2OYYy f1z5Tv76J83kG1FoiYY+PG KxoOU2wFA2 pL7fKqWtEnV3BNmwL187Ka KoqMKmCsvek4riu2mavUq8 IeP9RBItwtRjpRzxQZU5u6 MjHw80V40n IHdpZHRoPSIxNSUiIHZhbG opdo8nrP7oOe3+PGNvbCB3 iMR4wN6qDnSrUpN4EYqkR7 49InRvcCIv Jbbab5xgn4rbuMz6RiCiGN RpexMviPwvNBM7e8LjFg42 C3QthWscs5WrMte1fx87mY Lmg9D5fUS7 H3EfVYXgczbnyAKcyRgcQA 0sXALicwezTJRpeN6qGWUg V0x2NvKiUqB0TDhhS6Fjom H8QQMpfRZl JErmXTQ9L95ak3I4VGZvOK WrNGQ4gZX7rR7naCtbqvlw bGVmdDsgdmVydGljYWwtYW xmQ169OQKs zPfcPDOtkH1gNTXitGZsqE afCS6vDCWkluxcQsMTB8gQ TGjjSAWVMTFLRUtGZJ78LO 56bXPxi5B4 sCU6C2CySNAqfkwjqteloC M3YCQvYWOgdN29gWUrZWto Kl9iv5B8l084KYFxAZYwnC 50Jt5cuUip RTUdxNCUyL0rhmktz3esyx bpDbJpOVNfWEa1RVa5ZIRc jCokGkVzVSG8EwR0QTY0jF OvlI4nmQjz zfalsD5vIzr+MDgvMjEvMT e6XKknaOO+SJHjPIG2jIsh SKmnEVEnuR2bYIGqW8o1Vp JeExS0TTew V7OtFLCbdvcbKx43iN5sCr SbAcR4KVdrM3YtnmI7WBHl rUAaDSvjMLQ2I20gm5P1YZ MwMDAwMDA7 jCU4cX8tgKtxtibceJXogQ loxcAnfSlgLGyrPJtiX746 IHRvcDsnPjUwIFllYXJzPC 39GB98hTVi p8O3lWH6W7VzUTVgigxczl ikxYX1ALReUVKusJ11dGEq ZAkwGu1jt6R3j767PCHzEY FqaM35Uk6p lRbnMBAjcYDDnL0kkyglp0 mzxshuSvPmPBUuPJl1LFd1 XELftSbfGuZiCHI3JiS0PF B0iNCpsW8n wUtvmmsllI8qMrg+RmVtYW kzKS11KH02uKTpa4G2aDC6 S2HpQPZcvtethgphaXI5QR BlSUIeuD98 sIUaQYklFb3ke0M7l946KJ PvIMRqbD80Uq1vkKhaLTWb jYDEnI1jseygn5wjhixqWa AwMDAwMDt0 YFw7QOVkbTkoWaUaHSA4Qd H9NAV0rKEpsV7wvZdziwud wO5aSig+M1F5hUG7gSCuuC wvdGQ+PC90 yd44H6WmGrklCft7MCBrIW A3mKA8rS8sRQQtGWmaj6Y0 aGN6G4UoogTrrt8pm7jnEI ZzDAamG36s oVExj4Y3FCFtpDW4UBXwrD qdLuPzyJ72Vmc+PGNvbGdy d5OyBzlnb5lbp6gizVu6Aa MwJSIgdmFs yWxtDHI3j4HxMg28I62kTY dpZHRoPSIzMCUiIHZhbGln ub6upX5fAn2+DOWbcIQ4lE Q6zH8rEiOu HlU6DNerE743KmKblNXsLb zol7nbk5skwNe1JaCmJSKh uhQqnMzwATO6q5BtFz72W7 ZymCcvt0Pq Vvd3vg37fESoy8G6fZI7S7 BcQBEmywhcfKKhiZpzGI8a TTBxagzlKHIsgU9qUXOpK9 j1DvSdHjK9 RNycM2NqmfZ4SSUacCGfAM AyrQDJgF4dcdknm5zprbxc JkPjFRJsQCx4OWu5GUVmwB duOiBsZWZ0 KcF2IOO5wCRinO2lmKdwcb tkxE6qGmb+BLs4r2ewiDGa RC3eeHI0BZ25DY93dSAmi7 M6mZM8L2Sa FDFkkoiypmtocWI8TJLnCO YghM00Ls0wzFbaUc3kVEEj AIB0XGSlcVDpC6HptD4nRq AjMDAwMDAw T4EnaTXeLApbX584QTsrCs O7ZQQdxuVyF1TqSIEfyOun PjA4c4H2Pi8HWV28WY73RN 23eWIbq9G6 bEZ8W5PuDOHrkeyzngkpbE K8JSJzTBYcbT45Xe0muRfn Fp3tBCTfVPJ2ENOfeCBeK6 UbyL4jGkXh WPCqUQRsZ8MggEEsCQlqY5 92ZNmgIpG4USUselWlH8Dc UHOjaGkuMuQ1i5N5Ly6VPc 60YN19BK13 kAPha2V4xBQ4I6JxJYVupo zkpqrfwUJ4GSNnRUNybU73 Dw2huMgdIv0xWAFfTJB2GP HbiRLkX0Pf dF2qUnEbSTRvZBErD1PerD KtDQirN427JDemPmT8RIFg rfJxV6FtSEGejJxiBuA6d8 F6Vc4XLUrp cwc2E2YkDvevbTX+PC90YW TyEH35jJQowEEzr1cxfYn5 ZgMdLKGdGEF0cIebSAwom7 WtLTOrE42z bGFw (more content not included)... Normal [facility] Stress EKG Tracingson 2020 Stress EKG Tracings [id number]#1. 00CD:127 Normal [facility] Consent for Treatmenton 06-05 Consent for Treatment [id number]#1.0 0CD:127 Normal [facility] Coding Summary.on 06-21-2021 Coding Summary. CD:[id number]:[id number] Gh 0bWw+PGhlYWQ+TE6FURZtB 35uwNUgwI0EP7oHJZ9CIFO MEJDLJX0ITE5mqSP0BWjgU 2VybiAv XkhcyQXzIA37WRb3GGS6dL ehRPxjxZ6dwXGkO5r4RbGm MP79cA16UXyeYXKrBzO7Bc ZpbjsgbWFy N1mhGdPtzWLoHqg+PHRhYm xlIHdpZHRoPScxMDAlJyBz cXfbDM0fQj9fJUVtAUTecN xhcHNlOiBj l9puIQAiGBltNV1plLlaA8 NjzJF0QMQms8f3Pe72uLG+ JEArPKC8wRonXJfor097Lo Igc8bsZBR8 fPPxSDonODF8R21pn7J9AE XeYPHtSPS8qTD7rD3dyTru mftcV1AxtTHsDoY9ZSP9mC GnbT4flDyg rrugjK8yZuf+G41FBN8DMS DSKZ4QKly5U5TyKhskcKE+ RN76ZCHvVL84dUZbzHPbi0 bbiQb0XpPt KTNvGKP4cRiwZQerv7TyAX IqM86oaRUwx9M9PZFnpSli wAMoDiNzrNT1nE2cNVgnvt npo9curxpw Nfejq6tzpm95hQ92Z31bYI hkYXHbRET8RNWcCBBxhFxe jv8nzY4nCw2+LQuau5xwc2 twxIa8YqKl ZKRxaqQtjZogNXB7l8DrBd 42Q2BlbBuve2NaEgm8il08 uTQlx3G8fOQ8DEctLGQdiJ 4nXDtjAyI5 XTBoXxMvcV35eZMeDKqhXj 4bsAzviJqtRY0cTZKdtdsp MJKbrL5wSLOujKWumYsnPI 4wNTBpbjtm n469KjEqSSO0KEDagVHjM5 WueQ8mXcPmWRSqUDKcV5Ne fFFnRFtkT970CGtqLnS8VI JfbyTaP6Tn EXPpwNvxHeW9d4C2Us7Yh4 IzzpgwOFD5UDigBML0GxF2 DmOqSsC1B8CuHeh5PWGnnH heRI8fD4Np FGRgdwumqpproWM1QWGaAA IgzG09aWNaLWzzFj0dw2Y0 c791WMVbLHAqaP65Hw0cvA ogMTBwdCBU jC6pjytbl9wnelzqNaTdJT DdWLo7YXv0MBXigQoyZuTq LZA0UaE4ZDD2lXBcbB2gzZ dbctnwpT8x Oyc+D73rbP5nEGV0LBK2mv yrNYIgryPmEK98IU24X2Ni PjwvdGFibGU+PGRpdiBzdH mxFW8uPcFb p8rpf6FgOBnjV6LiDYDkJY luEly9JTMbOTK6cHH4eP8b OCYkERlaq3W0yQG0T4Tqxc Eldd7rs0hc HWShMYlcW18tcNPzn9Q2BM NiiIX7WRSoqFdhVlWueL55 Oyc+LOSurPibw7AuHdxij0 xbu7jaxMv0 HnCsENQvvbUiwYhpYKP2k1 YsSd63L28iTFhxDOZcHUHu XPXyOLItpRjsiy2bjS7lDw 8+PGNvbCB3 nZM2yY1lZYLaCuI2HVdpJ6 03CqRshJXtQsqpv5vav1id zKf4SxSpJXVrktLurBozNV Y3c5AcGi80 F91bFDftCGNzBKAaDPAdDY YgoXzpkd1wjM4mYt3+PC9j r8lkya12kW01nRY+PHRkIH Q2zBvqYSau DQJsiS3oNIonTjE2KRWpYz NdtM31cPMaVYhbDi4cbLuq jQjbLM5aHIOzcdljr869Ed Bjc1xiHLWv kMHwRTdaUBC5T61ys9S5HV FoUWZaFQO3gCF2vJ4skPfp bjogbGVmdDsgdmVydGljYW hxOYizP989 IHRvcDsnPlBhdGllbnQgTm RoXHr0D4QlJfp7OSBuzKgr MC3pzYNxWUwhYp1tqUxrdH mnDL8aPHJf tgjwi235UqNhh3kcUUAbxH ZxGEecKTK4I66sg0P2DCKl NJUvQVU2lOV9lR2ulRilfw ogbGVmdDsg gmJoeMvqOZylDNyeW655FE RvcDsnPkJpcnRoIERhdGU6 TW45LI88pJGal8O5jMR9B8 BhZGRpbmct wegpgXL8NILdNRHfzA12Ej 1oqYmoIv3oFAWwVPC1ROZc wMVsN2MstU3nJoOcVYHbWB UbC7LfiGOm PGiaF860GZvoCcR1RZQkol SwV7YsNSMjiHigXqB1g8A2 Qn3RH6Y7YF23UI32uUDur9 S4pQV9O1Rb LPZzqblbkjuiuVL6WLUhQD ZkwP78Fv6bnDkzSo0eYEFd DFE0KHMfhTAuH4HkeA1iNk AjMDAwMDAw C4FdwVBvBWmmS293XWrtWa G0JXKcysYhE2QtKRRgpYlb OcX8q2M0Dg0DSKt2EA72QC 53tPYym2T0 uDU2D7NcSRJjikvkxarguY C4QNYzVRYzoG68Hf9npOte Bk1lEZDmBZO7DHBrpNGwQ0 KylK4kJuWc ODPyMBXlV6GomEYgTRmiH4 67TQzvOxP8SVWgwtVhL5Fg WLRrzUbkNtJ2s6Z6Qe4UOX MtVE16JIF3 cQR6NE95XG93A1HqMrnzxV FibGU+PHRhYmxlIHdpZHRo WEtvFXAiVzVpcMajOP1dSn 9yZGVyLWNv gXqnnPDsGrBqi6zgOYWkCK ypIF4kfBlkM7UueYT2MIDm y2d7Cn29C83wE6RpcRG+PG IiaPS1hGT1 dE6wPpWlMxM0OYgzM530Od FmwJOxRsgxy2rll7qdoWr9 CwG6FAMsgmWcmTzxDZB4m4 LjEd46S42t IHdpZHRoPSIxNSUiIHZhbG fcbp3yhJ3nHb0+PGNvbCB3 nRI4xM7vDeVcOxQ9ITwjH6 49InRvcCIv Amnyu6yrd1eqmKr0VvNdMF LvrsXhyZnaCHF8m0KvBy91 Q3McmXwxt0EgSzv9dl26qB Vwh1M0tAS7 R7ZtQLJbmtbxsVRhkChvXG 2gFWWfdbiqFFKsuI0cQMBw Y1f9CbGaEqE6LBhlY0Awma U8PIXcaDXh LXwfEYK8Y24tt5G6VQNeBZ GtVAK5iWJ7jI2bvKbjhjzc bGVmdDsgdmVydGljYWwtYW cmK219WMJn xTytHGGndP5dAWHlsYSmvW paYY5hPDLrlvcvNaTDV8cS VScrVBRZDSLPUPqKPL65RF 84iNXqc3S6 jRI9A8LxFPCykdmrtyrjrE J7CEItWTNfsV51eZMkLDtf Zo3jr1X6c791PYJuDSTqjO 59Rh6lpByn JSAxrJJSiV1whledf7ecnp ujGeMmEPBqUUt6ESk0FKBl mHthQwSwZVI1SyC8MLI1wR ZtpK1upJdm scoirJ6cMsy+MDgvMjEvMT p4LYxkuUE+EAVcSQE1lAal YCmaAWBdpF2cVZIpY7b0Ms EdLzB4JDlv X0OvQAPyfrexFv52eU6xRu DkRvH6LOrzU6CcyiB0YUUz mKOuQBokTYX6Z54ak1Q6AR MwMDAwMDA7 rCG0xY7iqHaysmfkwFTwqB mjuoXcaAidUHjlONlyC485 OYQteRugXzR4MWvmKOQzXD 44IE41zJNm a0Z8qCA1X6CkJFIloooaol mrgDK4POUoUKDxqF52kQNx LOssUj7jd3K1s233IDUoPW FncP88Aa3p yDcqUUOzaIHOdX5ymyuxt5 gepjysAyYrFTLaAHs6VSx6 IFOdcEjgAiRaVBA6GeW9FS D9cMOheE1r oKekblmlhV1kEdk+RmVtYW odHG71QD37iUDpk4E4qKV5 J7JyGMOjscncbmcmgJW6AH KeZJVbqY89 iHVxYFctUj9iy5H1p925XZ FiIHIzaP11Pv3rvQqgCOIu lOXFkA8knipwo6dmoykhFm AwMDAwMDt0 FMi4ONEesFivToIqFYU6Ia P4ZFP7iPKpaL3dvKmlmffu pP3uFml+B2X9sUH5nVUudV wvdGQ+PC90 na71H3KjQowdYmd9EUEiSV L9qKW7qW4yNJRoZPotf6B5 bAK0M8CseqXfdy5vt3zhZK UhTBvkP07v vWRpn2B5IYXxrCB4HBIjwI yvOwRblF59Abv+PGNvbGdy t5DnAwesl3xhw5jptFv9Cr MwJSIgdmFs nOfbNWE6d8JuTd67B66hMN dpZHRoPSIzMCUiIHZhbGln og9kmX2xVq8+WTHpcBG6pE W2iW7pNsRk CcO9CLcpJ252OkMraDYlTb cyg7obw6irjGq0OuQjHTFh faHedEtlKYC9w4LhIk34E4 KrdXbuw8Uu Xro1nf93sZAev9R6pTT9E6 HyTQJhmenniRRclTegXU1u GTUvnwegLWKfvP9uQMKiC8 p1ZrXyTgB2 ZShrQ6TnolK8RGNczFVrTV DtmCKLvF6ooqprh5sjymmc ZaEcHXKhATd1PMz8IBFzpD duOiBsZWZ0 BoP2MCT7bBRfsJ6zcWcnhy fwuI7wTqp+GVo5s8qwdKSw VL7lmGF7FB05LL14dSQew1 P7cED5X0Ih RKGhmgdvcrunlTR2QXBiFL FozI28Pt1kaSvxPp4qNSAw OQP8TIGjuHQgE9NfeV4yCc AjMDAwMDAw F9GvyVSpYDdqL516RTqiRz Q6LFOizwUxO4OaURIzrAxo YhL2g5F8Ux5JST87NZ67NK 79eHJgh5S8 iDQ1A1BqIIAiegmkrajtkE H1WIAcZVIdbR10Ed6ydCyl Zr2mXLMzIAL5DRXrrTTaU2 XapA3bMfDx LNLnQEXqM1FbuUDgVHinF2 34TZiuKaS2LJMvgtCoB3Yr MRLspXvdGxU4a6D1Vy4VEn 53JX98ZY95 tVKbf1I1sVK6V0PfMFFprr printgmGF1QSJyXZUosT77 Su9clBtcMz1zGJBwVTE9XK HwoJHgW7Ji dT8fDjSoFTJwKIXcV0XzhQ MoVTbrQ804UJgfJnM0NVWl yfFkY6OwPYBbsQdjTaM9p5 S1Xv8WSYoq vjn1X9LdFcpfvRQ+PC90YW AlMJ14bANfrIOxn7jvdZg8 RkJdAPEzMIL4uUmaYYfis7 FqMRQwG09v bGFw (more content not included)... Normal [facility] BMPon 06-13-2021 Anion gap [Moles/Vol] 12 mmol/L Normal -16 [facility] Comment on above: Performed By: #### 2 897678, 9018530, [id number] ####[facility] [address] [facility] [place] [address] Calcium [Mass/Vol] 9.1 mg/dL Normal 8.9-11.1 [facility] Comment on above: Performed By: #### 2 759719, 0727954, [id number] ####[facility] [address] [place] [address] Chloride [Moles/Vol] 107 mmol/L Normal 101-111 [facility] Comment on above: Performed By: #### 2 195354, 4954020, 97346487 ####[facility] [address] [place] [address] CO2 [Moles/Vol] 25 mmol/L Normal 21-31 [facility] Comment on above: Performed By: #### 2 626409, 6920603, 26170614 ####[facility] [address] [place] [address] Creatinine [Mass/Vol] 0.8 mg/dL Normal 0.5-1.3 [facility] Comment on above: Performed By: #### 2 558714, 5556615, 57795834 ####[facility] [address] [place] [address] Glucose [Mass/Vol] 90 mg/dL Normal 55-199 [facility] Comment on above: Result Comment: If t his glucose result represents a fasting glucose, interpretation should refer to the following reference range: 55-99 mg/dL Performed By: #### 2 707890, 8883570, 96481663 ####[facility] [address] [place] [address] Potassium [Moles/Vol] 3.8 mmol/L Normal 3.5-5.3 [facility] Comment on above: Performed By: #### 2 128605, 5938481, 93348257 ####[facility] [address] [place] [address] Sodium [Moles/Vol] 140 mmol/L Normal 135-145 [facility] Comment on above: Performed By: #### 2 491618, 2571261, 05767113 ####[facility] [address] [place] [address] Urea nitrogen [Mass/Vol] 16 mg/dL Normal 5-21 [facility] Comment on above: Performed By: #### 2 350458, 7286783, 58697453 ####[facility] [address] [place] [address] Urea nitrogen/Creatinine [Mass ratio] 20 No Units Normal 10-20 [facility] Comment on above: Performed By: #### 2 273276, 6377668, 99226814 ####[facility] [address] [place] [address] CBC w/Indiceson 06-13-2021 Erythrocyte distribution width (RBC) [Ratio] 12.8 % Normal 10.9-14.2 [facility] Comment on above: Performed By: #### 2 219908, 8570066, 77919375 ####[facility] [address] [place] [address] Hematocrit (Bld) [Volume fraction] 38.7 % Normal 34.0-46.0 [facility] Comment on above: Performed By: #### 2 613398, 8242828, 67521549 ####[facility] [address] [place] [address] Hemoglobin (Bld) [Mass/Vol] 13.2 g/dL Normal 12.0-16.0 [facility] Comment on above: Performed By: #### 2 683643, 1241216, 15557822 ####[facility] [address] [place] [address] MCH (RBC) [Entitic mass] 32.2 pg Normal 27.0-34.0 [facility] Comment on above: Performed By: #### 2 675105, 6836468, 93180478 ####[facility] [address] [place] [address] MCHC (RBC) [Mass/Vol] 34.0 g/dL Normal 31.4-36.0 [facility] Comment on above: Performed By: #### 2 736912, 4829640, 78095722 ####[address] [address] MCV (RBC) [Entitic vol] 94.7 fL Normal 80.0-100.0 [facility] Comment on above: Performed By: #### 2 203249, 6994700, 94050296 ####[address] [address] Platelet mean volume (Bld) [Entitic vol] 7.1 fL Normal 6.4-10.8 [facility] Comment on above: Performed By: #### 2 386080, 5991209, 17068853 ####[address] [address] Platelets (Bld) [#/Vol] 346.0 E9/L Normal 150.0-500.0 [facility] Comment on above: Performed By: #### 2 541970, 2258274, 05827114 ####[address] [address] RBC (Bld) [#/Vol] 4.1 E12/L Low 4.3-5.9 [facility] Comment on above: Performed By: #### 2 312776, 8383208, 11391117 ####[address] [address] WBC corrected for nucl RBC Auto (Bld) [#/Vol] 8.8 E9/L Normal 4.0-11.0 [facility] Comment on above: Performed By: #### 2 981525, 9758913, 97457349 ####[address] [address] Consent for Treatmenton Consent for Treatment [id number]#1.0 0CD:127 Normal [facility] XR Chest 2 Viewson XR Chest 2 [...] M.D. Transcribed by: DENISE Technologist: DUNCAN Normal [facility] eGFRon 06-13-2021 GFR/1.73 sq M.predicted among blacks MDRD (S/P/Bld) [Vol rate/Area] mL/min/{1.73_m2} Normal >=59 [facility] Comment on above: Order Comment: Order added by Discern Expert. Result Comment: eGFR is race adjusted. AA=. Performed By: #### 2 976015, 4906340, 89344794 ####[facility] [address] [place] [address] GFR/1.73 sq M.predicted among non-blacks MDRD (S/P/Bld) [Vol rate/Area] mL/min/{1.73_m2} Normal >=59 [facility] Comment on above: Order Comment: Order added by Discern Expert. Result Comment: Instructional Systems Design Consultant mahad kidney disease could be indicated at eGFR's of less than 60 mL/min/1.73m2. Kidney failure is indicated at less than 15 mL/min/1.73m2. Performed By: #### 2 870130, 1036192, 99282640 ####[facility] [address] [place] [address] Physician Orderon 06-01-2021 Physician Order [id number]#1.0 0CD:127 Normal [facility] Physician Order [id number]#1. 00CD:127 Normal [facility] IntraOperative Documentson 0 01-14-2021 IntraOperative Documents [id number]#1. 00CD:127 [facility] Coding Summary.on 01-12-2021 Coding Summary. CODING DATE: 01/12/2021 FINAL [facility] STATUS: Home (Routine DC) PAYOR: Savage APC DESCRIPTION 5112 Level 2 Musculoskeletal Procedures ADMIT DX: REASON FOR VISIT DX: M19.041 Primary osteoarthritis, right hand FINAL DX: PRINCIPAL: M19.041 Primary osteoarthritis, right hand SECONDARY: K21.9 Gastro-esophageal reflux disease without esophagitis J44.9 Chronic obstructive pulmonary disease, unspecified PYMT PROC APC STAT DESCRIPTION DOCTOR NAME DATE 16754 5112 J1 Excision of lesion of Beverley Allan FLORES 01/07/2021 tendon sheath or joint capsule (eg, cyst, mucous cyst, or ganglion), hand or finger F6 Right hand, second digit 65043 Anesthesia for all Wilver Melvin Jr, DO [...] Revised Date Saved: 01/12/2021 03:47 pm Normal [facility] Progress Note-Physicianon Progress Note-Physician Patient: JOHANNA ENCINAS Age: 50 years Sex: Female : 1970 Associated Diagnoses: None Author: Wilver Melvin Jr, DO Postoperative Information Post Operative Note: Post Anesthesia Care Unit. Anesthetic utilized: General. Health Status Allergies: Allergic Reactions (Selected) Severity Not Documented Contrast Dye- Tachycardia. Problem list: All Problems COPD (chronic obstructive pulmonary disease) / SNOMED CT 80863020 / Confirmed GERD (gastroesophageal reflux disease) / SNOMED CT 785507500 / Confirmed Elevated triglycerides with high cholesterol / SNOMED CT 810625876 / Confirmed Vitamin D deficiency / SNOMED CT 42466836 / Confirmed Physical Examination Vital Signs 01/07/2021 [...] and vomiting. Plan Transfer/ Discharge: Condition stable. [facility] Comment on above: Result Comment: Elec tronically Signed By: Wilver Melvin Jr, DO\Date and Time Signed: 01/12/21 08:02 EST H&P Updateon 01-11-2021 H&P Update [id number]#1. 00CD:127 [facility] H&P Update [id number]#1. 00CD:127 [facility] Main OR Intraoperative Recor don 01-11-2021 Main OR Intraoperative Record IntraOp Document Type FT Summary Primary Physician: Allan Lowery DO Finalized Date/Time: 01/11/21 14:23:47 Pt. Name: JOHANNA ENCINAS/Sex: 1970 Female Med Rec #: [id number] Physician: Allan Lowery DO Financial #: [id number] Pt. Type: A Room/Bed: Admit/Disch: 01/07/21 12:50:42 - 01/07/21 18:05:00 Institution: Case Times FT Entry 1 Patient Times In Room 01/07/21 15:58:00 Out Room 01/07/21 16:28:00 Procedure Times Start 01/07/21 16:17:00 Stop 01/07/21 16:23:00 Anesthesia Times Start 01/07/21 15:58:00 Stop 01/07/21 16:28:00 Last Modified By: Leonie Bullard RN 01/07/21 16:28:27 General Comments: 01/11/2021 Chart opened to review and send charges. Angie LOADING MACHINE OPERATOR HELPER. Case Attendance FT Entry 1 Entry 2 Entry 3 Case Attendee Wilver Melvin Jr, DO, DO, Michael T McClain LOADING MACHINE OPERATOR HELPER, Yaima Puentes Role Performed Anesthesiologist of Surgeon [...] Case Attendee Leonie Bullard RN Role Performed Brand Advocate - Primary Time In 01/07/21 15:58:00 Time [...] and tissue Entry 1 Skin Integrity Intact, [place], Warm, and Skin Abnormality No Dry Outcomes [...] Safety Str (more content not included)... Normal [facility] Coding Summary.on 01-10-2021 Coding Summary. CODING DATE: 01/10/2021 FINAL [facility] STATUS: Home (Routine DC) PAYOR: Savage APC [...] Sarmiento CphT Date Saved: 01/10/2021 12:05 pm [facility] Consent for Anesthesiaon Consent for Anesthesia [id number]#1.0 0CD:127 [facility] Discharge Instructionson Discharge Instructions [id number]#1.0 0CD:127 [facility] IntraOperative Documentson 0 01-10-2021 IntraOperative Documents [id number]#1.0 0CD:127 [facility] IntraOperative Documents [id number]#1.0 0CD:127 [facility] Preoperative Documentson Preoperative Documents [id number]#1.0 0CD:127 [facility] Prescriptions/Work Noteson 0 01-10-2021 Prescriptions/Work Notes [id number]#1.0 0CD:127 Normal [facility] Operative Reporton Operative Report Date of Surgery: [...] patient's condition satisfactory Graham Galvan Dictated: 01/07/2021 #[id number] Typed: 01/08/2021 #[id number] cc: Waqas Villaseñor D.O. [facility] Comment on above: Result Comment: Elec [...] (chronic obstructive pulmonary disease) / SNOMED CT 23230659 / Confirmed GERD (gastroesophageal reflux disease) / SNOMED CT 739149739 / Confirmed Elevated triglycerides with high cholesterol / SNOMED CT 820463138 / Confirmed Vitamin D deficiency / SNOMED CT 53552423 / Confirmed Histories Past Medical History: No active or resolved past medical history items have been selected or recorded. Family History: No family history items have been selected or recorded. Procedure history: History of hysterectomy (8372178940). Hemorrhoidectomy (61247294). Extraction of wisdom tooth (258467323). Tonsillectomy and adenoidectomy (351711912). Multiple polyps removal of vocal cords (74315022). Social History Social & Psychosocial Habits Alcohol [...] results Radiology results ECG interpretation Condition Plan [place] [employer]esthesi[employer] (ASA) physical status classification: Class III. Anesthetic Preoperative Plan Anesthesia: General. . Anesthetic plan, risks, benefits, and alternatives discussed with the patient and/or family. Risks discussed: nausea, vomiting, headache, sore throat, dental injury, serious complications. Patient verbalized understanding. Communication: face to face with (patient 5 minutes, Pt educated on the importance of smoking cessation.). Normal [facility] Comment on above: Result Comment: Elec tronically Signed By: Wilver Melvin Jr, DO\.mac\Date and Time Signed: 01/09/21 11:58 EST Consent for Treatmenton Consent for Treatment [id number]#1.0 0CD:127 Normal [facility] H&P Updateon 01-07-2021 H&P Update [id number]#1. 00CD:127 Normal [facility] Main OR PACU I Recordon Main OR PACU I Record PACU Phase I Document Type FT Summary Primary Physician: Allan Lowery DO Finalized Date/Time: 01/07/21 17:11:06 Pt. Name: JOHANNA ENCINAS/Sex: 1970 Female Med Rec #: [id number] Physician: Allan Lowery DO Financial #: [id number] Pt. Type: A Room/Bed: Admit/Disch: 01/07/21 12:50:42 [...] By: Susy Cruz RN 01/07/21 17:11 Normal [facility] Main OR PACU II Recordon Main OR PACU II Record PACU Phase II Document Type FT Summary Primary Physician: Allan Lowery DO Finalized Date/Time: 01/07/21 19:30:58 Pt. Name: JOHANAN ENCINAS/Sex: 1970 Female Med Rec #: [id number] Physician: Allan Lowery DO Financial #: [id number] Pt. Type: A Room/Bed: 01/03 Admit/Disch: 01/07/21 [...] Met? Yes Last Modified By: Dipti Ledbetter RN/05/21 19:30:57 Post-Care Text: The patient demonstrates knowledge [...] By: Dipti Ledbetter RN 01/07/21 19:30 Normal [facility] Monitor Recordon 01-07-2021 Monitor Record [id number]#1. 00CD:127 Normal [facility] Monitor Record [id number]#1. 00CD:127 Normal [facility] Inpatient Patient Summaryon 01-06-2021 Inpatient Patient Summary [facility] [address] [place], [place] [address] [facility] Clinical Discharge Instructions PERSON INFORMATION Name: JOHANNA ENCINAS PHYSICIANS Admitting Physician: Allan Lowery DO Attending Physician: Allan Lowery DO PCP: JUS SOLIS MD Discharge Diagnosis: Ganglion cyst of finger of right hand Comment: PATIENT EDUCATION INFORMATION Instructions: Medication Leaflets: Follow up: With: Address: When: Allan Lowery [address] [place] [address] [facility] (1) Comments: Keep scheduled appointment Type Location [facility] 01/07/2021 3:30 PM 01/07/2021 4:03 [...] 2 Puffs Inhalation every day. Comment: Normal [facility] Outpatient Surgery Discharge Instructionon 01-06-2021 Outpatient Surgery Discharge Instruction [place] [id number] Patient Discharge Instructions PERSON INFORMATION Name: JOHANNA [...] Follow up: With: Address: When: Allan Lowery [address] [place], [place] [id number] [facility] (1) Comments: Keep scheduled appointment Type Location Start [facility] 01/07/2021 3:30 [...] to serve you. Thank you for choosing [facility] HERE ARE THE MEDICATION CHANGES THAT [...] every day. PATIENT EDUCATION INFORMATION Instructions: Normal [facility] Patient Education - Texton 0 01-06-2021 Patient Education - Text [facility] Consent for Procedure/Surger yon 01-04-2021 Consent for Procedure/Surgery [id number]#1. 00CD:127 Normal [facility] Outside Recordson 01-04-2021 Outside Records [id number]#1. 00CD:127 Normal [facility] BUNon 12-31-2020 Urea nitrogen [Mass/Vol] 11 mg/dL Normal 5-21 [facility] Comment on above: Performed By: #### 1 [id number], 4278336, 9390647, 6720022, 8222839, 4926076 ####[facility] [address] [place] [address] CBC w/Indiceson 12-31-2020 Erythrocyte distribution width (RBC) [Ratio] 12.3 % Normal 10.9-14.2 [facility] Comment on above: Performed By: #### 1 [id number], 9482268, 8811838, 6785927, 7487286, 0037564 ####[facility] [address] [place] [address] Hematocrit (Bld) [Volume fraction] 41.5 % Normal 34.0-46.0 [facility] Comment on above: Performed By: #### 1 [id number], 9815756, 9790319, 1235858, 0250167, 3335977 ####[facility] [address] [place] [address] Hemoglobin (Bld) [Mass/Vol] 14.1 g/dL Normal 12.0-16.0 [facility] Comment on above: Performed By: #### 1 [id number], 3309214, 2174040, 8269636, 1757429, 5708356 ####[facility] [address] [place] [address] MCH (RBC) [Entitic mass] 31.5 pg Normal 27.0-34.0 [facility] Comment on above: Performed By: #### 1 6641410, 6294096, 3073286, 1469118, 8734743, 0502737 ####[address] [place] [address] MCHC (RBC) [Mass/Vol] 34.0 g/dL Normal 31.4-36.0 [facility] Comment on above: Performed By: #### 1 5590476, 4650789, 4258904, 1192868, 2339773, 2844161 ####[address] [place] [address] MCV (RBC) [Entitic vol] 92.8 fL Normal 80.0-100.0 [facility] Comment on above: Performed By: #### 1 [id number], 7889448, 7966828, 6109089, 8685457, 4477150 ####[address] [place] [address] Platelet mean volume (Bld) [Entitic vol] 7.5 fL Normal 6.4-10.8 [facility] Comment on above: Performed By: #### 1 [id number], 3986534, 1413901, 1256831, 0014318, 9137340 ####[address] [place] [address] Platelets (Bld) [#/Vol] 380.0 E9/L Normal 150.0-500.0 [facility] Comment on above: Performed By: #### 1 0639951, 3855136, 4249689, 2072983, 4333544, 2382559 ####[facility] [address] [place] [address] RBC (Bld) [#/Vol] 4.5 E12/L Normal 4.3-5.9 [facility] Comment on above: Performed By: #### 1 4642066, 8949635, 2032709, 1711418, 4583227, 9450484 ####[facility] [address] [place] [address] WBC corrected for nucl RBC Auto (Bld) [#/Vol] 6.6 E9/L Normal 4.0-11.0 [facility] Comment on above: Performed By: #### 1 3649619, 8102736, 1129727, 0900453, 8646119, 1261241 ####[facility] [address] [place] [address] Consent for Treatmenton 12-07 Consent for Treatment [id number]#1.0 0CD:127 Normal [facility] Creatinineon 12-31-2020 Creatinine [Mass/Vol] 0.7 mg/dL Normal 0.5-1.3 [facility] Comment on above: Performed By: #### 1 3500426, 9352211, 6469771, 2348164, 5665746, 5016298 ####[facility] [address] [place] [address] Glucoseon 12-31-2020 Glucose [Mass/Vol] 122 mg/dL Normal 55-199 [facility] Comment on above: Performed By: #### 1 1877751, 6950418, 1749888, 5100930, 5765706, 5778872 ####[facility] [address] [place] [address] Lyteson 12-31-2020 Anion gap [Moles/Vol] 14 mmol/L Normal 6-16 [facility] Comment on above: Performed By: #### 1 [id number], [id number], [id number], [id number] ####[facility] [address] [place] [address] Chloride [Moles/Vol] 107 mmol/L Normal 101-111 [facility] Comment on above: Performed By: #### 1 [id number], [id number], [id number] ####[facility] [address] [place] [address] CO2 [Moles/Vol] 21 mmol/L Normal 21-31 [facility] Comment on above: Performed By: #### 1 [id number], [id number], [id number], [id number], [id number] ####[facility] [address] [place] [address] Potassium [Moles/Vol] 3.6 mmol/L Normal 3.5-5.3 [facility] Comment on above: Performed By: #### 1 [id number], [id number], [id number], [id number], [id number], [id number] ####[facility] [address] [place] [address] Sodium [Moles/Vol] 138 mmol/L Normal 135-145 [facility] Comment on above: Performed By: #### 1 [id number], [id number], [id number], [id number], [id number], [id number] ####[facility] [address] [place] [address] XR Chest 2 Viewson XR Chest 2 [...] Luke Boyd M.D. Transcribed by: DENISE Technologist: KINA Car [facility] eGFRon 12-31-2020 GFR/1.73 sq M.predicted among blacks MDRD (S/P/Bld) [Vol rate/Area] mL/min/{1.73_m2} Normal >=59 [facility] Comment on above: Order Comment: Order added by Discern Expert. Result Comment: eGFR is race adjusted. AA=. Performed By: #### 1 [id number], [id number], [id number], [id number], [id number], [id number] ####[facility] [address] [place] [address] GFR/1.73 sq M.predicted among non-blacks MDRD (S/P/Bld) [Vol rate/Area] mL/min/{1.73_m2} Normal >=59 [facility] Comment on above: Order Comment: Order added by Discern Expert. Result Comment: Instructional Systems Design Consultant mahad kidney disease could be indicated at eGFR's of less than 60 mL/min/1.73m2. Kidney failure is indicated at less than 15 mL/min/1.73m2. Performed By: #### 1 [id number], [id number], [id number], [id number], [id number] ####[facility] [address] [place] [address] Vital Signs Date Time Vital Sign Value Performing Clinician Blake cintron 10-23-2024 09:140500 Body mass index (BMI) [Ratio] 34.14 kg/m2 Serena FONG Work Phone: [facility] 10-23-2024 09:14050 Body weight 98.88 kg Serena FONG Work Phone: [facility] 10-23-2024 09:14-0500 Diastolic blood pressure 76 mm[Hg] Serena FONG Work Phone: [facility] 10-23-2024 09:14-0500 Systolic blood pressure 124 mm[Hg] Serena Velasquez PA Work Phone: [facility] 08-18-2024 11:17-0400 Body height 170.2 cm Sweta Lause BILL POSTER INSTALLER Work Phone: [facility] 08-18-2024 11:17-0400 Body mass index (BMI) [Ratio] 34.46 kg/m2 Sweta Lause BILL POSTER INSTALLER Work Phone: [facility] 08-18-2024 11:17-0400 Body temperature 97.3 [degF] Sweta Lause BILL POSTER INSTALLER Work Phone: [facility] 08-18-2024 11:17-0400 Body weight 99.79 kg Sweta Lause BILL POSTER INSTALLER Work Phone: [facility] 08-18-2024 11:17-0400 Diastolic blood pressure 82 mm[Hg] Sweta Lause BILL POSTER INSTALLER Work Phone: [facility] 08-18-2024 11:17-0400 Heart rate 111 /min Sweta Lause BILL POSTER INSTALLER Work Phone: [facility] 08-18-2024 11:17-0400 Respiratory rate 16 /min Sweta Lause BILL POSTER INSTALLER Work Phone: [facility] 08-18-2024 11:17-0400 SaO2% (BldA) [Mass fraction] 96 % Sweta Lause BILL POSTER INSTALLER Work Phone: [facility] 08-18-2024 11:17-0400 Systolic blood pressure 138 mm[Hg] Sweta Lause BILL POSTER INSTALLER Work Phone: [facility] 12-07-2023 10:01-0500 Body height 170.2 cm Serena Warchol BILL POSTER INSTALLER Work Phone: [facility] 12-07-2023 10:01-0500 Body mass index (BMI) [Ratio] 36.09 kg/m2 Serena Warchol BILL POSTER INSTALLER Work Phone: [facility] 12-07-2023 10:01-0500 Body temperature 96.8 [degF] Serena Odell BILL POSTER INSTALLER Work Phone: [facility] 12-07-2023 10:01-0500 Body weight 104.51 kg Serena Odell BILL POSTER INSTALLER Work Phone: [facility] 12-07-2023 10:01-0500 Diastolic blood pressure 78 mm[Hg] Serena Odell BILL POSTER INSTALLER Work Phone: [facility] 12-07-2023 10:01-0500 Heart rate 90 /min Serena Odell BILL POSTER INSTALLER Work Phone: [facility] 12-07-2023 10:01-0500 SaO2% (BldA) [Mass fraction] 98 % Serena dOell BILL POSTER INSTALLER Work Phone: [facility] 12-07-2023 10:01-0500 Systolic blood pressure 124 mm[Hg] Serena Odell BILL POSTER INSTALLER Work Phone: [facility] Encounters Encounter Date Encounter Type Care Provider Facility Start: 10-23-2024 End: 10-23-2024 Bamboo flowsheet Serena FONG Work Phone: [facility] Start: 10-23-2024 End: 11-02-2024 Bamboo flowsheet Serena FONG Work Phone: [facility] Start: 10-23-2024 End: 11-02-2024 Clinisync Result Encounter Serena FONG Work Phone: [facility] External Department Unsolicited Start: 10-23-2024 End: 10-23-2024 Patient encounter procedure Serena FONG Work Phone: [facility] Start: 10-23-2024 End: 10-23-2024 Periodic preventive med est patient 40-64yrs Serena FONG Work Phone: [facility] Comment on above: Well woman exam with routine gynecological exam; Breast cancer screening by mammogram Start: 10-23-2024 End: 10-23-2024 ambulatory SERENA VELASQUEZ Not Available Start: 08-21-2024 End: 08-21-2024 Orders Only Sweta Cortes BILL POSTER INSTALLER Work Phone: [facility] Comment on above: Hot flashes (Primary Dx); Insomnia, unspecified type Start: 08-18-2024 End: 08-18-2024 Bamboo flowsheet Sweta R Lause BILL POSTER INSTALLER Work Phone: [facility] Start: 08-18-2024 End: 08-18-2024 Bamboo flowsheet Sweta R Lause BILL POSTER INSTALLER Work Phone: [facility] Start: 08-18-2024 End: 08-18-2024 Office outpatient visit 25 minutes Sweta R Lause BILL POSTER INSTALLER Work Phone: [facility] Comment on above: Insomnia, unspecifie d type (Primary Dx); Snoring; Hypersomnolence; Elevated fasting glucose Start: 08-18-2024 End: 08-18-2024 ambulatory SWETA R LAUSE Not Available Start: 08-11-2024 End: 08-12-2024 Orders Only Sweta R Lause BILL POSTER INSTALLER Work Phone: [facility] Department Unsolicited Start: 06-06-2024 End: 06-06-2024 ambulatory SWETA R LAUSE Not Available Start: 03-10-2024 End: 03-10-2024 ambulatory BONIFACIO ANTHONYELMA Not Available Start: 03-03-2024 End: 03-03-2024 ambulatory EDDIE WENGERD Not Available Start: 02-28-2024 End: 02-28-2024 ambulatory EDDIE WENGERD Not Available Start: 02-25-2024 End: 02-25-2024 ambulatory JUAN PABLO Brett BRYANTACH Not Available Start: 02-18-2024 End: 02-18-2024 ambulatory EDDIE WENGERD Not Available Start: 02-13-2024 End: 02-13-2024 ambulatory SEREAN CASS Not Available Start: 02-12-2024 End: 02-12-2024 ambulatory JUAN PABLO BRYANTACH Not Available Start: 12-07-2023 End: 12-07-2023 Office outpatient visit 25 minutes Serena Odell BILL POSTER INSTALLER Work Phone: [facility] Comment on above: Chronic obstructive pulmonary disease, unspecified COPD type (CMS/HCC) (Primary Dx); Vitamin D deficiency; Elevated triglycerides with high cholesterol (CMS/HCC); Vaginal candidiasis; Other chronic sinusitis; Non-recurrent acute serous otitis media of both ears Start: 12-07-2023 End: 12-07-2023 ambulatory SERENA ODELL Not Available Start: 12-06-2023 Chart abstracting Serena Odell BILL POSTER INSTALLER Work Phone: [facility] Start: 11-18-2023 End: 11-18-2023 ambulatory KARINA ANNE Not Available Start: 04-19-2023 End: 04-19-2023 Emergency department patient visit Juanjo Beyer Facility:[facility] Start: 09-07-2022 End: 09-08-[address] ADOLFO MANCERA Facility:[facility] Start: 08-18-2022 End: 08-18-[address] ADOLFO MANCERA Facility:[facility] Start: 10-20-2019 End: 10-20-2019 Departed Referred Jus Solis [facility] Start: 11-28-2018 End: 11-28-2018 Patient encounter procedure [facility] Procedures Date Procedure Procedure Detail Performing Clinician Start: 10-23-2024 IGP,APTIMA HPV,AGE GDLN Serena FONG Work Phone: Start: 08-11-2024 Complete blood count with white cell differential, automated Sweta Cortes BILL POSTER INSTALLER Work Phone: Start: 08-11-2024 Comprehensive metabo lic panel Sweta Cortes BILL POSTER INSTALLER Work Phone: Start: 08-11-2024 Lipid panel Sweta Cortes BILL POSTER INSTALLER Work Phone: Start: 08-11-2024 SPECIMEN STATUS REPORT Sweta Cortes BILL POSTER INSTALLER Work Phone: Start: 11-02-2023 Mammography Serena corral BILL POSTER INSTALLER Work Phone: Start: 10-22-2023 Cytp cerv/vag auto t hin layer prep mnl screen Serena FONG Work Phone: Start: 07-27-2021 Colonoscopy Serena corral BILL POSTER INSTALLER Work Phone: Plan of Treatment Date Care Activity Detail Author Start: 07-27-2031 Screening for malign ant neoplasm of colon [facility] Start: 10-26-2025 End: 10-26-2025 Patient encounter procedure 10/26/2025 10:00 AM EST Office Visit [facility] [address] [place] [address] Serena Velasquez PA [address] [place], [place] [id number] [facility] Start: 12-08-2024 End: 12-08-2024 Patient encounter procedure 12/08/2024 10:00 AM EST Office Visit [facility] [address] [place] [id number] Sweta Cortes, BILL POSTER INSTALLER [address] [place] [address] [facility] Start: 11-10-2024 End: 11-10-2024 Patient encounter procedure 11/10/2024 11:00 AM EST Office Visit [facility] [address] [place] [address] Sweta Cortes, BILL POSTER INSTALLER [address] [place] [address] [facility] Start: 11-02-2024 Screening for malign ant neoplasm of breast Mammogram [facility] Start: 10-23-2024 End: 12-24-2025 MG Breast - bilateral Screening Bilateral screening mammogram Imaging Routine Breast cancer screening by mammogram Expected: 10/23/2024 (Approximate), Expires: 12/24/2025 [facility] Work Phone: Comment on above: Expected: 10/23/2024 (Approximate), Expires: 12/24/2025 Start: 10-23-2024 End: 10-23-2024 Patient encounter procedure [facility] Comment on above: Arrived Start: 08-21-2024 End: 08-21-2025 Estradiol Estradiol Lab Routine Insomnia, unspecified type Hot flashes Expected: 08/21/2024 (Approximate), Expires: 08/21/2025 [facility] Work Phone: Comment on above: Expected: 08/21/2024 (Approximate), Expires: 08/21/2025 Start: 08-21-2024 End: 08-21-2025 Estrone Estrone Lab Routine Insomnia, unspecified type Hot flashes Expected: 08/21/2024 (Approximate), Expires: 08/21/2025 [facility] Comment on above: Expected: 08/21/2024 (Approximate), Expires: 08/21/2025 Start: 08-21-2024 End: 08-21-2025 Follicle stimulating hormone Follicle stimulating hormone Lab Routine Insomnia, unspecified type Hot flashes Expected: 08/21/2024 (Approximate), Expires: 08/21/2025 [facility] Comment on above: Expected: 08/21/2024 (Approximate), Expires: 08/21/2025 Start: 08-21-2024 End: 08-21-2025 Luteinizing hormone Luteinizing hormone Lab Routine Insomnia, unspecified type Hot flashes Expected: 08/21/2024 (Approximate), Expires: 08/21/2025 [facility] Comment on above: Expected: 08/21/2024 (Approximate), Expires: 08/21/2025 Start: 08-21-2024 End: 08-21-2025 Progesterone Progesterone Lab Routine Insomnia, unspecified type Hot flashes Expected: 08/21/2024 (Approximate), Expires: 08/21/2025 [facility] Comment on above: Expected: 08/21/2024 (Approximate), Expires: 08/21/2025 Start: 08-21-2024 End: 08-21-2025 Testosterone, free, total Testosterone, free, total Lab Routine Insomnia, unspecified type Hot flashes Expected: 08/21/2024 (Approximate), Expires: 08/21/2025 [facility] Comment on above: Expected: 08/21/2024 (Approximate), Expires: 08/21/2025 Start: 08-18-2024 End: 08-18-2024 Patient encounter procedure 08/18/2024 11:20 AM EDT Office Visit [facility] [address] [place] [address] Sweta Cortes NP [address] [place] [address] Arrived [facility] Comment on above: Arrived Start: 07-06-2024 Influenza vaccination Influenza Vacc ine (#1) [facility] Start: 06-06-2024 End: 06-06-2024 Patient encounter procedure 06/06/2024 10:00 AM EDT Office Visit [facility] [address] [place] [address] Serena Odell NP [address] [place] [address] [facility] Start: 01-04-2024 End: 01-04-2024 Patient encounter procedure 01/04/2024 8:00 AM EST Office Visit [facility] [address] [place] [address] Serena Odell NP [address] [place] [address] [facility] Start: 12-21-2023 Influenza vaccination Influenza Vacc ine (#1) [facility] Comment on above: Postponed from 07/06 (Patient Refused) Start: 12-07-2023 End: 12-07-2023 Patient encounter procedure 12/07/2023 10:00 AM EST Office Visit [facility] [address] [place] [address] Serena Odell NP [address] [place] [address] [facility] Start: 07-06-2023 Influenza vaccination Influenza Vacc ine (#1) [facility] Start: 1970 Screening for malign ant neoplasm of colon [facility] THIN PREP TIS PAP AN D HR HPV DNA THIN PREP TIS PAP AND HR HPV DNA Pathology and Cytology Routine Well woman exam with routine gynecological exam Ordered: 10/23/2024 [facility] Comment on above: Ordered: 10/23/2024 Immunizations Immunization Date Immunization Notes Care Provider [place] 07-14-2024 influenza, injectabl e, madin pallavi canine kidney, preservative free Sweta Lause BILL POSTER INSTALLER Work Phone: [facility] 10-23-2022 zoster vaccine recombinant J essica Lause BILL POSTER INSTALLER Work Phone: [facility] 10-12-2022 Pneumococcal Conjuga te PCV 20 Sweta Lause BILL POSTER INSTALLER Work Phone: [facility] 08-21-2022 zoster vaccine recombinant J essica Lause BILL POSTER INSTALLER Work Phone: [facility] 07-07-2022 Influenza, injectabl e, Madin [place] Canine Kidney, preservative free, quadrivalent Sweta Lause BILL POSTER INSTALLER Work Phone: [facility] 07-07-2022 influenza virus vacc ine, unspecified formulation Serena Warchol BILL POSTER INSTALLER Work Phone: [facility] 08-17-2021 Influenza, injectabl e, Madin Pallavi Canine Kidney, preservative free, quadrivalent Sweta Lause BILL POSTER INSTALLER Work Phone: [facility] 07-16-2020 Seasonal trivalent influenza vaccine, adjuvanted, preservative free Sweta Lause BILL POSTER INSTALLER Work Phone: [facility] 07-06-2020 influenza, seasonal, injectable Sweta Lause BILL POSTER INSTALLER Work Phone: [facility] 07-30-2019 influenza, injectabl e, quadrivalent, contains preservative Sweta Lause BILL POSTER INSTALLER Work Phone: [facility] 09-11-2017 pneumococcal polysaccharide vaccine, 23 valent Sweta Lause BILL POSTER INSTALLER Work Phone: [facility] 04-09-2017 tetanus toxoid, redu bashir diphtheria toxoid, and acellular pertussis vaccine, adsorbed Sweta Lause BILL POSTER INSTALLER Work Phone: [facility] 11-05-2016 pneumococcal polysaccharide vaccine, 23 valent Sweta Palaciosfausto BILL POSTER INSTALLER Work Phone: [facility] 09-01-2009 novel Influenza-H1N1 -09, live virus for nasal administration Sweta Cortes BILL POSTER INSTALLER Work Phone: [facility] Payers Date Payer Category Payer [facility] BCBS [id number] 2021 [id number] 2021-Present [phone] [id number] 1971 Unknown [id number] 2.16.840.1.419806.3.579.2. 593 1971 Unknown [id number] 2.16.840.1.657669.3.579.2. 593 1971 Unknown [id number] 2.16.840.1.649526.3.579.2. 9 1971 Unknown [id number] 2.16.840.1.608873.3.579.2. 1259 1971 Unknown [id number] 2.16.840.1.076106.3.579.2. 1259 1971 Unknown [id number] 2.16.840.1.357066.3.579.2. 9 1971 Unknown [id number] 2.16.840.1.701988.3.579.2. 9 1971 Unknown [id number] 2.16.840.1.783522.3.579.2. 1258 1971 Unknown [id number] 2.16.840.1.327987.3.579.2. 1258 1971 Unknown [id number] 2.16.840.1.628912.3.579.2. 1258 1971 Unknown [id number] 2.16.840.1.834791.3.579.2. 9 1971 Unknown [id number] 2.16.840.1.745583.3.579.2. 1258 1971 Unknown [id number] 2.16.840.1.329909.3.579.2. 1258 1971 Unknown [id number] 2.16.840.1.283514.3.579.2. 9 1959 Unknown [id number] Self-pay Self Pay [id number] Unknown Self Pay [id number] Unknown Self Pay [id number] Social History Date Type Detail Facility Start: 09-22-2019 Tobacco smoking status [facility] Smoker (finding) [facility] Start: 1970 Sex Assigned At Female [facility] Start: 05-05-1987 End: 06-06-2024 Tobacco smoking status [facility] Smokes tobacco daily [facility] Start: 05-05-1987 History of tobacco use [...] to any clubs or organizations such as restorationism groups, unions, [employer] or athletic groups, or school groups? Yes [...] Only a little [facility] (I/We) worried wheth er (my/our) food would run out before [...] Heterosexual (finding) [facility] Start: 12-07-2023 End: 10-23-2024 Alcohol intake Ex-drinker (finding) [facility] How many standard dr inks containing alcohol do you have on a typical day? 1 or 2 [facility] How often do you hav e 6 or more drinks on 1 occasion? Monthly [facility] Goals Date Patient Goal Desired Activity /State History of Present illness Narrative 10-23-2024 Merced Burks, OPERATIONS SUPPORT MANAGER - 10/23/2024 9:00 AM EST Note Date & Type Note Facility 10-23-2024 History of Presen t illness Narrative Reason for Appointment: Patient ID: Rodrick Encinas is a 54 y.o. female who presents for Gynecologic Exam Patient presents today for Annual Exam. MEDICATIONS Current Outpatient Medications Medication Instructions aspirin (Vazalore) 81 MG capsule Take by mouth. cetirizine (ZyrTEC ALLERGY) 10 MG tablet ergocalciferol (VITAMIN D2) 1.25 mg, Oral, Weekly esomeprazole (NexIUM) 20 MG packet eszopiclone (LUNESTA) 1 mg, Oral, Nightly PRN, Take immediately before bedtime fenofibrate (TRIGLIDE) 160 mg, Oral, Daily fluticasone (Flonase Allergy Relief) 50 MCG/ACT nasal spray 1 spray, Each Nostril, 2 times daily hydrOXYzine HCl (ATARAX) 25 mg, Oral, Nightly PRN metFORMIN (GLUCOPHAGE) 500 mg, Oral, Daily with breakfast tiotropium (Spiriva Respimat) 2.5 MCG/ACT inhaler 2 puffs, Inhalation, Daily ALLERGIES No Known Allergies PROBLEMS Active Ambulatory Problems Diagnosis Date Noted Abnormal liver function test 12/27/2010 Allergic rhinitis due to pollen 04/04/2017 Arm paresthesia, right 11/12/2023 Arthritis of finger of right hand 01/13/2021 Barretts esophagus 11/25/2015 Acute exacerbation of chronic obstructive pulmonary disease (CMS/HCC) 11/07/2019 Chronic obstructive pulmonary disease (CMS/HCC) 01/30/2021 Class 2 obesity 12/24/2020 Cough 11/12/2023 Current smoker 11/03/2021 Diverticular disease of colon 09/11/2017 Tobacco user 08/13/2019 Diverticulosis of large intestine without hemorrhage 11/12/2023 Dizzy spells 11/12/2023 Elevated triglycerides with high cholesterol (CMS/[facility]) 11/12/2023 Hyperlipidemia (CMS/[facility]) 11/25/2015 Esophageal reflux 11/25/2015 Fatty liver 12/27/2010 Fatigue 11/12/2023 Chest pain 11/24/2013 Feeling of chest tightness 11/12/2023 Iron deficiency anemia 11/12/2023 Insomnia 11/25/2015 Hoarseness 11/03/2019 Ear pain 11/12/2023 Headache 11/12/2023 Jaw pain 11/12/2023 Neck pain 11/12/2023 Sinus pain 11/12/2023 Mild carpal tunnel syndrome of left wrist 11/12/2023 Morbid obesity (CMS/HCC) 11/03/2021 Other chronic sinusitis 07/24/2019 Palpitation 11/24/2013 Pernicious anemia 12/06/2018 Vitamin B12 deficiency anemia due to intrinsic factor deficiency 11/12/2023 Sore throat 11/12/2023 Vitamin D deficiency 07/24/2019 Vocal cord polyp 07/27/2020 Resolved Ambulatory Problems Diagnosis Date Noted No Resolved Ambulatory Problems Past Medical History: Diagnosis Date Allergies Anemia Carvajal's esophagus 2012 Bronchitis Chronic sinus infection COPD (chronic obstructive pulmonary disease) ([facility]) GERD (gastroesophageal reflux disease) Hemorrhoids 2012 High triglycerides ([facility]) Nondependent tobacco use disorder Osteopenia Palpitations 2013 Pneumonia [place] teeth extracted HISTORY PAST MEDICAL HISTORY SOCIAL HISTORY Past Medical History: Diagnosis Date Allergies Anemia Carvajal's esophagus 2012 Bronchitis Chest pain 2014 Chronic sinus infection COPD (chronic obstructive pulmonary disease) ([facility]) GERD (gastroesophageal reflux disease) Hemorrhoids 2012 High triglycerides ([facility]) Nondependent tobacco use disorder Osteopenia Palpitations 2014 Pneumonia [place] teeth extracted Social History Tobacco Use Smoking status: Every Day Current packs/day: 0.50 Average packs/day: 0.5 packs/day for 37.5 years (18.7 ttl pk-yrs) Types: Cigarettes Start date: 05/05/1987 Smokeless tobacco: Never Tobacco comments: 6-10 cigarettes smokes per day; Thinking about quitting Substance Use Topics Alcohol use: Not Currently Alcohol/week: 2.0 standard drinks of alcohol Types: 2 Standard drinks or equivalent per week Comment: caffeine intake: 2-4 cups per day of soda/pop/chocolate Drug use: Never FAMILY HISTORY Family History Problem Relation Name Age of Onset Cancer Mother Sole Echeverria Smoker No Known Problems Sister Elena and Naina Nuñez No Known Problems Daughter Cherelle Dey Hyperlipidemia Maternal Grandmother Heart disease Maternal Grandmother Diabetes Maternal Grandfather Hypertension Maternal Grandfather Heart disease Maternal Grandfather Stroke Maternal Grandfather Heart disease Paternal Grandfather SURGICAL HISTORY Past Surgical History: Procedure Laterality Date 30 DAY EVENT MONITOR EGD 2011 with biopsy EXCISION Left 10/04/2020 DML Exc. Left Vocal Cord Nodule HEMORRHOIDECTOMY 2011 OTHER SURGICAL HISTORY 30 day event monitor disease: chest pain and palpitation POLYPECTOMY Right 10/20/2019 polyps rt vocal cord- Dr Snow STRESS ECHOCARDIOGRAM disease : chest pain / palpitation TONSILLECTOMY TRIGGER FINGER RELEASE Right 10/05/2021 RT trigger thumb release, e/o ganglion cyst TSCNCO MTP WISDOM TOOTH EXTRACTION REVIEW OF SYSTEMS Review of Systems: Review of Systems All other systems reviewed and are negative. OBJECTIVE Objective: Physical Exam Constitutional: Appearance: Normal appearance. She is well-developed. Genitourinary: Vulva normal. Cardiovascular: Rate and Rhythm: Normal rate and regular rhythm. Pulmonary: Effort: Pulmonary effort is normal. Breath sounds: Normal breath sounds. Abdominal: General: Bowel sounds are normal. There is no distension. Palpations: Abdomen is soft. Tenderness: There is no abdominal tenderness. There is no guarding or rebound. Musculoskeletal: General: No swelling. Normal range of motion. Right lower leg: No edema. Left lower leg: No edema. Neurological: Mental Status: She is alert and oriented to person, place, and time. Skin: General: Skin is warm and dry. Psychiatric: Mood and Affect: Mood normal. Behavior: Behavior normal. Vitals and nursing note reviewed. Exam conducted with a media production operator present. Vitals: Estimated body mass index is 34.14 kg/m as calculated from the following: Height as of 08/18/24: 5' 7 . Weight as of this encounter: 218 lb. BP: 124/76 No LMP recorded (lmp unknown). Patient has had a hysterectomy. ASSESSMENT & PLAN ICD-10-CM 1. Well woman exam with routine gynecological exam Z01.419 THIN PREP TIS PAP AND HR HPV DNA 2. Breast cancer screening by mammogram Z12.31 Bilateral screening mammogram Bilateral screening mammogram Annual Exam: Patient presents today for an annual exam. Patient states she is doing well and has no complaints. Pap was obtained without difficulty. Orders Placed This Encounter Procedures Bilateral screening mammogram Follow Up: Patient is to return in one year for annual unless needed otherwise. Documented by Merced Burks LPN on behalf of: AJIT Werner documented in this encounter [facility] History of Present illness Narrative 08-18-2024 Sweta Knowles Sebastian, BILL POSTER INSTALLER - 08/18/2024 11:20 AM EDT Note Date [...] , Rfl: ergocalciferol (Vitamin D2) 1.25 MG (27015 UT) capsule, Take 1 capsule (1.25 mg) [...] sinus infection COPD (chronic obstructive pulmonary disease) ([facility]) GERD (gastroesophageal reflux disease) Hemorrhoids 2011 High triglycerides ([facility]) Nondependent tobacco use disorder Osteopenia Palpitations 2013 Pneumonia [place] teeth extracted Allergies: No Known Allergies Social [...] headaches, and dizziness. She was seen by on 11/18/22 and was diagnosed with sinusitis. [...] , Rfl: ergocalciferol (Vitamin D2) 1.25 MG (91115 UT) capsule, Take 1 capsule (1.25 mg) [...] deficiency - ergocalciferol (Vitamin D2) 1.25 MG (88415 UT) capsule; Take 1 capsule (1.25 mg) [...] follow-up: YANNA/WSoila . documented in this encounter [facility] Instructions 12-07-2023 Patient Instructions Note Date & [...] starting the antibiotic. documented in this encounter [facility] Clinical Note 06-28-2021 Note Date & Type Note Facility 06-28-2021 Note Echocardiology Procedure Exam Date/Time Accession # Ordering ECG Stress Exercise 06/22/2021 09:08 EDT [id number] SERENA CROWDER NP CPT code 79429 Reason for Exam (ECG Stress Exercise) R53.83 [...] Mora MD Transcribed by: maria dolores Technologist: [facility] History and physical note 01-04-2021 Note Date & Type Note Facility 01-04-2021 Note [id number] [facility] Evaluation note Note Date & Type Note Facility Evaluation note Diagnosis Chronic obstructive pulmonary disease, unspecified COPD type ([facility])- Primary Vitamin D deficiency Elevated triglycerides with high cholesterol ([facility]) Mixed hyperlipidemia Vaginal candidiasis Candidiasis of vulva and vagina Other chronic sinusitis Non-recurrent acute serous otitis media of both ears documented in this encounter [facility] Evaluation note Note Date & Type Note Facility Evaluation note Diagnosis Insomnia, unspecified type- Primary Snoring Other dyspnea and respiratory abnormality Hypersomnolence Hypersomnia, unspecified Elevated fasting glucose Impaired fasting glucose documented in this encounter [facility] Evaluation note Note Date & Type Note Facility Evaluation note Diagnosis Hot flashes- Primary Insomnia, unspecified type documented in this encounter [facility] Evaluation note Note Date & Type Note Facility Evaluation note Diagnosis Well woman exam with routine gynecological exam Routine gynecological examination Breast cancer screening by mammogram documented in this encounter [facility] Advance Directives Advance Directive Response Recorded [...] section and content) DATE CREATED AUTHOR 10/05/2021 [facility] DATE CREATED AUTHOR AUTHOR'S ORGANIZ ATION 04/15/2022 [facility] DATE CREATED AUTHOR AUTHOR'S ORGANIZ ATION 07/06/2022 [facility] DATE CREATED AUTHOR AUTHOR'S ORGANIZ ATION 09/11/2022 [facility] DATE CREATED AUTHOR AUTHOR'S ORGANIZ ATION 04/19/2023 [facility] DATE CREATED AUTHOR AUTHOR'S ORGANIZ ATION 10/26/2024 [facility] EPIC Care Teams (unrecognized sec tion and content) Food Scientist Relationship Specialty Start Date End Date Ramona Hudson NP [address] [place] [address] PCP - [employer] [employer] 02/03/21 Jus Solis MD [address] [place] [address] PCP - General Family Medicine 04/19/23 Serena Odell, BILL POSTER INSTALLER [address] [place] [address] Nurse Practitioner Family Medicine 04/19/23 Sweta Cortes NP [address] [place] [phone] Nurse Practitioner Pulmonary Disease 04/19/23 Food Scientist Relationship Specialty Start Date End Date Ramona Hudson NP [address] [place] [address] [facility] 02/03/21 Jus Solis MD [address] [place] [address] PCP - General Family Medicine 04/19/23 Serena Odell NP [address] [place] [address] Nurse Practitioner Family Medicine 04/19/23 Sweta Cortes NP [address] [place] [address] Nurse Practitioner Pulmonary Disease 04/19/23 Food Scientist Relationship Specialty Start Date End Date Jus Solis MD [address] [place] [address] PCP - General Family Medicine 04/19/23 Serena Odell BILL POSTER INSTALLER [address], [id number] PCP - [employer] [employer] [facility] 07/06/24 Serena Odell NP [address] [place] [id number] Nurse Practitioner Family Medicine 04/19/23 Sweta Cortes NP [address] [place] [phone] Nurse Practitioner Pulmonary Disease 04/19/23 Food Scientist Relationship Specialty Start Date End Date Jus Solis MD [address] [id number] PCP - General Family Medicine 04/19/23 Serena Odell NP [address], [id number] PCP - [employer] [employer] 07/06/24 Serena Odell NP [address] [place] [address] Nurse Practitioner Family Medicine 04/19/23 Sweta Cortes NP [address] [place] [address] Nurse Practitioner Pulmonary Disease 04/19/23 Food Scientist Relationship Specialty Start Date End Date Jus Solis MD [address] [place] [address] PCP - General Family Medicine 04/19/23 Serena Odell NP [address] [place] [address] PCP - [facility] [employer] 07/06/24 Serena Odell NP [address] [place] [address] Nurse Practitioner Family Medicine 04/19/23 Sweta Cortes, BILL POSTER INSTALLER [address] [place] [phone] Nurse Practitioner Pulmonary Disease 04/19/23 Food Scientist Relationship Specialty Start Date End Date Jus Solis MD [address] [place] [id number] PCP - General Family Medicine 04/19/23 Serena Odell NP [address] [place] [id number] PCP - [facility] [employer] 07/06/24 Serena Odell NP [address] [place] [address] Nurse Practitioner Family Medicine 04/19/23 Sweta Cortes, BILL POSTER INSTALLER [address] [place] [phone] Nurse Practitioner Pulmonary Disease 04/19/23 Food Scientist Relationship Specialty Start Date End Date Jus Solis MD [address] [place] [address] PCP - General Family Medicine 04/19/23 Serena Odell NP [address] [place] [id number] PCP - [facility] [employer] 07/06/24 Serena Odell NP [address] [place] [address] Nurse Practitioner Family Medicine 04/19/23 Sweta Cortes NP [address] [place] [address] Nurse Practitioner Pulmonary Disease 04/19/23 Food Scientist Relationship Specialty Start Date End Date Jus Solis MD [address] [place] [address] PCP - General Family Medicine 04/19/23 Serena Odell NP [address] [place] [address] PCP - [facility] 07/06/24 Serena Odell NP [address] [place] [address] Nurse Practitioner Family Medicine 04/19/23 Sweta Cortes NP [address] [place] [address] Nurse Practitioner Pulmonary Disease 04/19/23 Reason for Visit (unrecogniz ed section and content) Reason Comments Gynecologic Exam FOR RECORDS PERTAINING TO PATIENTS WHO ARE [...] BE BASED ON THE PRIMARY CLINICAL RECORDS. [employer] [facility]. provides no warranty or guarantee of the accuracy or completeness of information in this document.
== END 2024-11-03 07:58 | disposition home or self-care (01) ==
LOC: MAMMO 07:57
PROVIDERS: PCP Family Medicine; Visit Provider Physician Assistant
DX: Z12.31 Encounter for screening mammogram for malignant neoplasm of breast (principal); Z80.8 Family history of malignant neoplasm of other organs or systems
CPT/HCPCS: 77063; 77067